=== PATIENT | female | born 1950 | race African-American/Black ===

== ENCOUNTER 2020-10-27 12:50 | Outpatient (REF) | payer MEDICARE, OTHER, SELFPAY ==
--- NOTE | 2020-10-27 | US_ITS ---
EXAMINATION: US VENOUS ULTRASOUND WITH DOPPLER LOWER EXTREMITY, LEFT CLINICAL INFORMATION: Swelling COMPARISON: None TECHNIQUE: Ultrasound of the deep veins is performed from the hip to the calf with compression sonography and color and pulse Doppler assessment. Spectral analysis with color-flow imaging is performed. FINDINGS: There is normal venous compression and respiratory variation and augmented flow. The visualized common femoral vein, superficial femoral vein, profunda femoral vein, popliteal vein, and the trifurcation region shows no evidence of deep venous thrombosis. There is no significant popliteal fossa cyst. There are varicose veins seen in the calf. There is bilateral inguinal lymphadenopathy. US/US venous duplex LE LT IMPRESSION: No DVT demonstrated in the left lower extremity.
== END 2020-10-27 12:51 | disposition home or self-care (01) ==
LOC: HO.HMGCX 12:50
PROVIDERS: PCP Internal Medicine; Visit Provider Internal Medicine
DX: M79.89 Other specified soft tissue disorders (principal)
CPT/HCPCS: 93971

== ENCOUNTER 2020-10-31 14:22 | Outpatient (REF) | payer MEDICARE, OTHER, SELFPAY ==
--- NOTE | 2020-10-31 14:26 | MM_ITS ---
EXAMINATION: MM SCREENING DIGITAL BREAST TOMOSYNTHESIS, BILATERAL CLINICAL INFORMATION: Screening. Asymptomatic. The lifetime risk of breast cancer based on the Tyrer-Cuzick Model is 5%. COMPARISON: Mammography: 11/09/2018, 02/21/2017 TECHNIQUE: Digital breast tomosynthesis is performed in both the craniocaudal and mediolateral oblique views along with computer-aided detection (CAD). Synthesized 2D images are generated from the tomosynthesis. FINDINGS: There are scattered areas of fibroglandular density (ACR BI-RADS breast composition Category b). Parenchymal pattern is similar to prior studies. Small nodular asymmetry posterior 3:30 o'clock right breast is stable from prior exams. There is no developing density. No significant mass or architectural abnormality or abnormal calcifications. The axilla and skin contours are unremarkable. MM/MM tomosynthesis screening BI IMPRESSION: No significant changes from prior studies. ASSESSMENT: BI-RADS 2: Benign RECOMMENDATION: Routine annual mammography screening. This patient's information was entered into a reminder system with a target due date for their next mammogram.
== END 2020-10-31 14:23 | disposition home or self-care (01) ==
LOC: HO.MAMMO 14:22
PROVIDERS: PCP Internal Medicine; Visit Provider Internal Medicine
DX: Z12.31 Encounter for screening mammogram for malignant neoplasm of breast (principal)
CPT/HCPCS: 77063; 77067

== ENCOUNTER 2020-11-05 09:36 | Outpatient (REF) | payer MEDICARE, OTHER, SELFPAY ==
--- NOTE | 2020-11-05 | MM_ITS ---
EXAMINATION: BONE DENSITOMETRY CLINICAL INDICATION: Screening for osteoporosis. COMPARISON: Baseline BD dated 06/12/2012. TECHNIQUE: Using a [employer] DXA System (software version: 13.1) manufactured by depict, dual-energy x-ray absorptiometry was performed of the lumbar spine and left hip. The images are of good technical quality. Summary results are attached. FINDINGS: AP SPINE L1-L4: There is prominent levocurvature lumbar spine with multilevel degenerative changes which may cause overestimation of the lumbar bone mineral density. Current: BMD 1.462 g/cm2, Z-score 3.0, T-score 2.3, normal, 5.0% decrease from baseline (<5% change is not significant). Baseline: BMD 1.539 g/cm2. LEFT FEMUR, NECK: Current: BMD 1.004 g/cm2, Z-score 0.3, T-score -0.2, normal. Baseline: BMD 1.105 g/cm2. LEFT FEMUR, TOTAL: Current: BMD 1.051 g/cm2, Z-score 0.6, T-score 0.3, normal, 4.0% decrease from baseline (<5% change is not significant). Baseline: BMD 1.095 g/cm2. IDENTIFIED RISK FACTORS: Menopause, tobacco use (current smoker). HISTORY OF FRACTURE: None listed. MEDICATIONS: None listed. MM/XR DEXA axial skeleton IMPRESSION: 1. DIAGNOSIS: Normal bone density based on the lowest T-score value of -0.2 in the femoral neck applying World Health Organization criteria. 2. 10-YEAR FRACTURE RISK PREDICTION, FRAX: Major osteoporotic fracture (clinical spine, forearm, hip or shoulder) 3.2%. Hip fracture 0.4%. 3. Treatment Recommendations: NOF guidelines recommend consideration for treatment in postmenopausal women and men age 50 and older presenting with the following: -A hip or vertebral (clinical or morphometric) fracture. -T-score less than or equal to -2.5 at the femoral neck or spine after appropriate evaluation to exclude secondary causes. -Low bone mass at the hip or spine and a 10-year fracture probability by FRAX of greater than or equal to 3% for hip fracture or greater than or equal to 20% for major osteoporotic fracture based on the [place] adapted WHO algorithm. 4. Other Recommendations: All treatment decisions require clinical judgment and consideration of individual patient factors, including patient preferences, comorbidities, previous drug use, risk factors not captured in the FRAX model (e.g. frailty, falls, vitamin D deficiency, increased bone turnover, interval significant decline in bone density) and possible under or overestimation of fracture risk by FRAX. FUTURE SCAN RECOMMENDATION: People with diagnosed cases of osteoporosis or at high risk for fracture should have regular bone mineral density tests. For patients eligible for Medicare, routine testing is allowed once every 2 years. The testing frequency can be increased to one year for patients who have rapidly progressing disease, those who are receiving or discontinuing medical therapy to restore bone mass, or have additional risk factors.
== END 2020-11-05 09:37 | disposition home or self-care (01) ==
LOC: HO.MAMMO 09:36
PROVIDERS: PCP Internal Medicine; Visit Provider Internal Medicine
DX: Z13.820 Encounter for screening for osteoporosis (principal); Z78.0 Asymptomatic menopausal state; F17.200 Nicotine dependence, unspecified, uncomplicated
CPT/HCPCS: 77080

== ENCOUNTER → 2021-06-25 13:21 | Outpatient (BNVA) | payer MEDICARE, OTHER, SELFPAY | PROVIDERS: PCP Internal Medicine; Visit Provider Nurse Practitioner Family | DX: M53.3 Sacrococcygeal disorders, not elsewhere classified (principal); M79.18 Myalgia, other site | CPT/HCPCS: 99202 ==

== ENCOUNTER 2021-07-01 12:14 | Outpatient (REF) | payer MEDICARE, OTHER, SELFPAY ==
--- NOTE | ~2021-07-01 | XR_ITS ---
EXAMINATION: XR LUMBOSACRAL SPINE CLINICAL INFORMATION: Lower back pain. COMPARISON: None TECHNIQUE: Three views of the lumbosacral spine. FINDINGS: Levocurvature of the lumbar spine centered at the L3 vertebral body. The lumbar lordosis is maintained. Grade 1 anterolisthesis of L4 on L5 and grade 2 anterolisthesis of L5 on S1. No loss of vertebral body height. Multilevel loss of intervertebral disc height with anterior endplate osteophytes. Prominent lower lumbar spine facet arthropathy. No lytic or blastic osseous lesion. Atherosclerotic calcifications. XR/XR lumbar spine 2-3V IMPRESSION: Levocurvature of the lumbar spine centered at the L3 vertebral body. Grade 1 anterolisthesis of L4 on L5 and grade 2 anterolisthesis of L5 on S1. Multilevel degenerative disc disease with lower lumbar spine facet arthropathy.
== END 2021-07-01 12:15 | disposition home or self-care (01) ==
LOC: HO.XRAY 12:14
PROVIDERS: PCP Internal Medicine; Visit Provider Internal Medicine
DX: M54.5 Low back pain (principal)
CPT/HCPCS: 72100

== ENCOUNTER → 2021-07-20 09:09 | Outpatient (BNVA) | payer MEDICARE, OTHER, SELFPAY | PROVIDERS: PCP Internal Medicine; Visit Provider Surgery Vascular Surgery | DX: I83.12 Varicose veins of left lower extremity with inflammation (principal) | CPT/HCPCS: 99202 ==

== ENCOUNTER → 2021-07-28 13:24 | Outpatient (BNVA) | payer MEDICARE, OTHER, SELFPAY | PROVIDERS: PCP Internal Medicine; Visit Provider Nurse Practitioner Family | DX: M53.3 Sacrococcygeal disorders, not elsewhere classified (principal); M79.18 Myalgia, other site; M43.16 Spondylolisthesis, lumbar region | CPT/HCPCS: 99212 ==

== ENCOUNTER 2021-08-05 10:09 | Outpatient (REF) | payer MEDICARE, OTHER, SELFPAY ==
--- NOTE | ~2021-08-05 | US_ITS ---
EXAMINATION: BILATERAL LOWER EXTREMITY VENOUS ULTRASOUND (Reflux Exam) CLINICAL INDICATION: This a 71-year-old female with history of venous insufficiency and varicose veins. COMPARISON: None. TECHNIQUE: Color flow triplex imaging and compression Doppler was performed to evaluate both the deep and the superficial systems bilaterally. To evaluate the superficial system, the examination was performed in the upright position. Color-flow Doppler ultrasound and compression ultrasound were utilized. In addition, maneuvers were utilized to demonstrate reflux. FINDINGS: 1. DEEP VENOUS ULTRASOUND OF THE RIGHT LOWER EXTREMITY: Common Femoral Vein: Compressible but with a reflux time of 956 ms. Femoral vein: Compressible with a reflux time of 1928 ms. Popliteal Vein: There is deep vein thrombosis seen in the popliteal vein. But with the reflux time of 1284 ms. there is no previous study to compare to this area to see if this is chronic or acute. Deep Reflux: There is deep vein reflux from the common femoral vein down into the popliteal vein.. There is no evidence of a Canada's cyst. 2. SUPERFICIAL ULTRASOUND WITH DOPPLER OF RIGHT LOWER EXTREMITY GREAT SAPHENOUS VEIN: Saphenofemoral junction: 0.5 cm Mid thigh: 0.3 cm Above knee: 0.2 cm Below knee: 0.3 cm Mid calf: 0.2 cm Ankle: 0.3 cm GSV REFLUX: No evidence of reflux. There is only an isolated segment of reflux at the knee in the great saphenous vein. DUPLICATED GREAT SAPHENOUS VEIN: There is a medial duplicated great saphenous vein measuring 0.3 cm without evidence of reflux. SMALL SAPHENOUS VEIN: Upper: 0.2 cm Lower: 0.2 cm SSV REFLUX: No evidence of reflux. VEIN OF GIACOMINI: None Imaged. PERFORATORS: None Imaged VARICOSITIES: There are multiple varicosities seen that are less than 0.3 cm. 3. DEEP VENOUS ULTRASOUND OF THE LEFT LOWER EXTREMITY: Common Femoral Vein: Compressible, normal respiratory variation and augmented flow. Femoral vein: Compressible, normal color flow and augmentation. Popliteal Vein: There is reflux in the popliteal vein with reflux time of 2052 ms. Deep Reflux: There is no evidence of reflux in the deep system in the common femoral vein. However, there is reflux in the popliteal vein. There is no evidence of a Canada's cyst. 4. SUPERFICIAL ULTRASOUND WITH DOPPLER OF LEFT LOWER EXTREMITY GREAT SAPHENOUS VEIN: Saphenofemoral junction: 0.8 cm Mid thigh: 0.2 cm Above knee: 0.2 cm Below knee: Not seen Mid calf: Not seen Ankle: Not seen GSV REFLUX: No evidence of reflux. DUPLICATED GREAT SAPHENOUS VEIN: None SMALL SAPHENOUS VEIN: Upper: 0.3 cm Lower: 0.2 cm SSV REFLUX: There is no reflux at the junction. There is a short segment in the mid calf measuring 0.3 cm with the reflux time of 2448 ms per VEIN OF GIACOMINI: None Imaged. PERFORATORS: None Imaged VARICOSITIES: There are multiple varicosities seen that are less than 0.3 cm. US/US venous duplex LE BI IMPRESSION: 1. Of note is deep vein thrombosis in the right popliteal vein with reflux throughout the deep system.. 2. There is a patent right great saphenous vein without evidence of reflux at the junction. 3. There is a patent duplicated medial right great saphenous vein without evidence of reflux. 4. There is a patent right small saphenous vein without evidence of reflux. 5. There are right-sided varicose veins and all measure less than 0.3 cm. 6. There is a patent left great saphenous vein without evidence of reflux. 7. There is a patent left small saphenous vein with only reflux in the mid calf over an isolated segment. 8. There are multiple varicose veins that all measure less than 0.3 cm in the leg.
== END 2021-08-05 10:10 | disposition home or self-care (01) ==
LOC: HO.US 10:09
PROVIDERS: PCP Internal Medicine; Visit Provider Surgery Vascular Surgery
DX: I83.12 Varicose veins of left lower extremity with inflammation (principal)
CPT/HCPCS: 93970

== ENCOUNTER 2021-08-09 13:00 | Outpatient (REF) | payer MEDICARE, OTHER, SELFPAY ==
--- NOTE | ~2021-08-09 | MR_ITS ---
EXAMINATION: MR LUMBAR SPINE WITHOUT CONTRAST CLINICAL INFORMATION: 71-year-old with chronic low back pain and bilateral leg pain and weakness. Spondylolisthesis, lumbar region. COMPARISON: None TECHNIQUE: MRI of the lumbar spine was obtained using routine sequences without contrast. FINDINGS: Coronal Alignment: Rauybwos-dh-yjfjdr lumbar rotatory levoscoliosis, convex to the left at L2-L3. There is dkwmt-rm-nrwc lateral listhesis at L4-L5. There is jkoh-ww-ivlyt lateral listhesis at T12-L1. Sagittal Alignment: There is 5 mm of grade 1 spondylolisthesis at L5-S1, likely degenerative. There is 4 mm of grade 1 degenerative spondylolisthesis at L4-L5, and there is trace rotatory anterolisthesis at L3-L4. There is trace retrolisthesis at T12-L1. Lumbosacral Junction: Normal. Vertebral Bodies: Vertebral body heights are well maintained. No definite compression fractures are identified. Disc Spaces and Endplates: Dpbzhkce-vr-vioeok disc space height loss asymmetric to the left at L5-S1 with intradiscal degenerative signal changes with subchondral degenerative changes along the inferior endplate of L5 and mild spondylosis. Mild disc space height loss and disc desiccation at L4-L5 with Schmorl's nodes and mild spondylosis. Oyvq-iw-cextdkso disc space height loss asymmetric to the right at L3-L4 with disc desiccation and moderate spondylosis. Severe disc space height loss, disc desiccation, Schmorl's nodes, and spondylosis at T12-L1, T11-T12, T10-T11, T9-T10, and T8-T9. Probable intradiscal vacuum disc phenomenon at L4-L5 and L5-S1. Bone Marrow: Type I degenerative marrow signal changes along the endplates at L5-S1 and L2-L3. Conus Medullaris: Terminates at L1-L2. Morphology and signal is normal. Intradural Nerve Roots: Crowding of the intradural nerve roots at L4-L5 and, to a lesser degree, at L3-L4 consistent with multilevel spinal stenosis. L5-S1: Unroofing of the posterior disc margin consistent with grade 1 spondylolisthesis with bilateral paravertebral/posterolateral disc-osteophyte complex and severe bilateral facet arthropathy. There is mild left subarticular recess stenosis with tnyhscskfi-qc-wbyp central spinal canal stenosis with possible encroachment on the traversing left S1 nerve root. There is severe left-sided and nrsg-wh-ruqsznpu right-sided craniocaudal neural foraminal stenosis with left L5 nerve root impingement. L4-L5: Unroofing of the posterior disc margin noted with superimposed disc bulging and a superimposed central to right subarticular extruded disc herniation with mild cephalad migration. Ligamentum flavum thickening and severe bilateral facet arthropathy is noted with severe central spinal canal stenosis and crowding of the intradural nerve roots, with moderate bilateral lateral recess stenosis. There is severe right subarticular recess stenosis, as well, and there is iuku-bt-fhphxdot left-sided and dzifvkqw-vm-lbuebn right-sided neural foraminal stenosis with right L4 nerve root impingement. L3-L4: Mild disc bulging is noted with a superimposed right central to subarticular and foraminal disc herniation, with flattening of the dural sac asymmetric to the right. There is marked ligamentum flavum thickening, and there is severe right-sided and moderate left-sided facet arthropathy. There is moderate central spinal canal stenosis with crowding of the intradural nerve roots and mild narrowing of the right subarticular recess. There is severe right-sided neural foraminal stenosis with right L3 nerve root impingement. L2-L3: Small left paramedian to foraminal disc protrusion. Mild left-sided and uwfwrnfj-jo-dpnxqy right-sided facet hypertrophic degenerative change with mild right-sided neural foraminal narrowing without canal stenosis. L1-L2: Slight retrolisthesis is noted with a small right paramedian disc protrusion and moderate bilateral facet arthrosis with mtoe-pk-pdsqljvu right-sided neural foraminal stenosis. No spinal canal stenosis. Posterolateral disc-osteophyte complex asymmetric to the right at T12-L1 which is not imaged in the axial plane with moderate bilateral facet arthropathy at this level, with mild left-sided and moderate right-sided neural foraminal stenosis without spinal canal stenosis. Small left paramedian disc protrusion at T11-T12 with moderate left-sided facet arthropathy and moderate left-sided neural foraminal stenosis. There is facet arthropathy, left more than right, at the remaining visualized thoracic levels. Paraspinal/Retroperitoneal: The paravertebral soft tissues are remarkable for mild generalized diffuse posterior paraspinal muscle volume loss. MR/MR lumbar spine wo con IMPRESSION: 1. Tqqgblyk-bb-dibzgh rotatory lumbar levoscoliosis, with multilevel lateral subluxations, with grade 1 spondylolisthesis at L4-L5 and L5-S1 and trace retrolisthesis at L1-L2 and T12-L1. 2. Multilevel DDD and spondylosis, as detailed above, with extensive multilevel bilateral facet arthropathy and ligamentum flavum thickening. Multilevel disc bulging and disc herniations are described above, with severe spinal canal stenosis at L4-L5 and moderate spinal canal stenosis at L3-4 with mild spinal canal stenosis at L5-S1. 3. Multilevel bilateral neural foraminal stenosis, most severe on the left at L5-S1 and on the right at L3-L4, bilaterally at L4-L5, right more than left, as detailed above. 4. Multilevel lower thoracic degenerative changes, as discussed above.
== END 2021-08-09 13:01 | disposition home or self-care (01) ==
LOC: HO.MRI 13:00
PROVIDERS: Visit Provider Nurse Practitioner Family
DX: M43.16 Spondylolisthesis, lumbar region (principal)
CPT/HCPCS: 72148

== ENCOUNTER → 2021-08-12 13:43 | Outpatient (BNVA) | payer MEDICARE, OTHER, SELFPAY | PROVIDERS: PCP Internal Medicine; Visit Provider Surgery Vascular Surgery | DX: I82.409 Acute embolism and thrombosis of unspecified deep veins of unspecified lower extremity (principal) | CPT/HCPCS: 99212 ==

== ENCOUNTER → 2021-11-18 10:36 | Outpatient (BNVA) | payer MEDICARE, OTHER, SELFPAY | PROVIDERS: PCP Internal Medicine; Visit Provider Surgery Vascular Surgery | DX: I83.12 Varicose veins of left lower extremity with inflammation (principal) | CPT/HCPCS: 99212 ==

== ENCOUNTER 2021-12-09 09:45 | Outpatient (REF) | payer MEDICARE, OTHER, SELFPAY ==
--- NOTE | ~2021-12-09 | MM_ITS ---
EXAMINATION: MM SCREENING DIGITAL BREAST TOMOSYNTHESIS, BILATERAL CLINICAL INFORMATION: Screening. Asymptomatic. The lifetime risk of breast cancer based on the Tyrer-Cuzick Model is 5.2%. COMPARISON: Mammography: October 31, 2020 and studies dating back to November 22, 2013 TECHNIQUE: Digital breast tomosynthesis is performed in both the craniocaudal and mediolateral oblique views along with computer-aided detection (CAD). Synthesized 2D images are generated from the tomosynthesis. FINDINGS: There are scattered areas of fibroglandular density (ACR BI-RADS breast composition Category b). There are no significant masses, abnormal calcifications, or other abnormalities. MM/MM tomosynthesis screening BI IMPRESSION: There are no significant changes from prior study. ASSESSMENT: BI-RADS 1: Negative RECOMMENDATION: Routine annual mammography screening. This patient's information was entered into a reminder system with a target due date for their next mammogram.
== END 2021-12-09 09:46 | disposition home or self-care (01) ==
LOC: HO.MAMMO 09:45
PROVIDERS: Visit Provider Internal Medicine
DX: Z12.31 Encounter for screening mammogram for malignant neoplasm of breast (principal)
CPT/HCPCS: 77063; 77067

== ENCOUNTER 2022-02-14 10:21 | Outpatient (REF) | payer MEDICARE, OTHER, SELFPAY ==
--- NOTE | ~2022-02-14 | US_ITS ---
EXAMINATION: BILATERAL LOWER EXTREMITY VENOUS ULTRASOUND (Reflux Exam) CLINICAL INDICATION: Lower extremity varicose veins. COMPARISON: Bilateral lower extremity reflux ultrasound on 08/05/2021. TECHNIQUE: Color flow triplex imaging and compression Doppler was performed to evaluate both the deep and the superficial systems bilaterally. To evaluate the superficial system, the examination was performed in the upright position. Color-flow Doppler ultrasound and compression ultrasound were utilized. In addition, maneuvers were utilized to demonstrate reflux. FINDINGS: SUPERFICIAL ULTRASOUND WITH DOPPLER OF RIGHT LOWER EXTREMITY GREAT SAPHENOUS VEIN: Saphenofemoral junction: 0.6 cm Max diameter: 0.6 cm Min diameter: 0.2 cm Reflux: There is segmental reflux within the right great saphenous vein at the knee measuring greater than 0.6 seconds. DUPLICATED MEDIAL GREAT SAPHENOUS VEIN: Max Diameter: 0.3 cm at the junction. Reflux: None. DUPLICATED LATERAL GREAT SAPHENOUS VEIN: Diameter: None Imaged Reflux: NA SMALL SAPHENOUS VEIN: Proximal Calf: 0.3 cm Distal Calf: 0.2 cm Reflux: No evidence of reflux. VEIN OF GIACOMINI: None Imaged. PERFORATORS: Location: None Imaged Reflux: NA VARICOSITIES: Location: Multiple thin-walled varicosities present throughout the right lower extremity measuring less than 3 mm. Reflux: NA DEEP VENOUS ULTRASOUND OF THE RIGHT LOWER EXTREMITY: Common Femoral Vein: Compressible, normal respiratory variation and augmented flow. Femoral vein: Compressible, normal color flow and augmentation. Popliteal Vein: There is partially occlusive, echogenic thrombus seen within the popliteal vein consistent with chronic DVT. This is unchanged in extent when compared to 2020. Deep Reflux: There is greater than 2.1 seconds of reflux within the mid femoral vein and 1.9 seconds of reflux within the popliteal vein. Canada's Cyst: There is no evidence of a Canada's cyst. SUPERFICIAL ULTRASOUND WITH DOPPLER OF LEFT LOWER EXTREMITY GREAT SAPHENOUS VEIN: Saphenofemoral junction: 0.8 cm Max diameter: 0.8 cm Min diameter: 0.3 cm Reflux: There is segmental reflux within the great saphenous vein at the mid calf up to 2.3 seconds. Additional: The great saphenous vein is not visualized from the mid thigh to below the knee. DUPLICATED MEDIAL GREAT SAPHENOUS VEIN: Max Diameter: 0.4 Reflux: None DUPLICATED LATERAL GREAT SAPHENOUS VEIN: Diameter: None Imaged Reflux: NA SMALL SAPHENOUS VEIN: Proximal Calf: 0.2 cm Distal Calf: 0.3 cm Reflux: No evidence of reflux. VEIN OF GIACOMINI: None Imaged. PERFORATORS: Location: Posterior thigh distally, and mid calf measuring between 3 and 4 mm. Reflux: There is greater than 2 seconds of reflux within the mid calf perforators. VARICOSITIES: Location: Posterior thigh, proximal calf and mid calf measuring between 3 and 4 mm. Reflux: All imaged varicosities demonstrate reflux greater than 0.5 seconds. DEEP VENOUS ULTRASOUND OF THE LEFT LOWER EXTREMITY: Common Femoral Vein: Compressible, normal respiratory variation and augmented flow. Femoral vein: Compressible, normal color flow and augmentation. Popliteal Vein: Compressible, normal augmentation. Deep Reflux: There is no evidence of reflux in the deep system in either the common femoral vein or the popliteal vein. Canada's Cyst: There is no evidence of a Canada's cyst. US/US venous duplex LE BI IMPRESSION: Segmental right great saphenous venous insufficiency at the knee. Segmental left great saphenous venous insufficiency at the mid calf. The left great saphenous vein is not visualized from the mid thigh to below the knee. Multiple left lower extremity refluxing varicosities. Chronic right popliteal vein DVT, not significantly changed from 2020. Right deep venous insufficiency involving the mid femoral vein and popliteal vein.
== END 2022-02-14 10:22 | disposition home or self-care (01) ==
LOC: HO.US 10:21
PROVIDERS: Visit Provider Surgery Vascular Surgery
DX: I83.12 Varicose veins of left lower extremity with inflammation (principal)
CPT/HCPCS: 93970

== ENCOUNTER → 2022-02-22 10:52 | Outpatient (BNVA) | payer MEDICARE, OTHER, SELFPAY | PROVIDERS: PCP Internal Medicine; Visit Provider Surgery Vascular Surgery | DX: I83.12 Varicose veins of left lower extremity with inflammation (principal) | CPT/HCPCS: 99212 ==

== ENCOUNTER 2022-12-13 08:34 | Outpatient (REF) | payer MEDICARE, SELFPAY ==
--- NOTE | ~2022-12-13 | MM_ITS ---
EXAMINATION: MM SCREENING DIGITAL BREAST TOMOSYNTHESIS, BILATERAL CLINICAL INFORMATION: Screening. Asymptomatic. The lifetime risk of breast cancer based on the Tyrer-Cuzick Model is 4.4%. COMPARISON: Mammography: December 09, 2021 and studies dating back to January 14, 2016 TECHNIQUE: Digital breast tomosynthesis is performed in both the craniocaudal and mediolateral oblique views along with computer-aided detection (CAD). Synthesized 2D images are generated from the tomosynthesis. FINDINGS: There are scattered areas of fibroglandular density (ACR BI-RADS breast composition Category b). There are no significant masses, abnormal calcifications, or other abnormalities. MM/MM tomosynthesis screening BI IMPRESSION: No significant changes from prior exam. ASSESSMENT: BI-RADS 1: Negative RECOMMENDATION: Routine annual mammography screening. This patient's information was entered into a reminder system with a target due date for their next mammogram.
== END 2022-12-13 08:35 | disposition home or self-care (01) ==
LOC: HO.MAMMO 08:34
PROVIDERS: PCP Registered Nurse; Visit Provider Internal Medicine
DX: Z12.31 Encounter for screening mammogram for malignant neoplasm of breast (principal)
CPT/HCPCS: 77063; 77067

== ENCOUNTER → 2022-12-15 09:24 | Outpatient (BNVA) | payer MEDICARE, SELFPAY | PROVIDERS: Visit Provider Surgery | DX: Z12.11 Encounter for screening for malignant neoplasm of colon (principal) | CPT/HCPCS: 99202 ==

== ENCOUNTER 2023-02-17 07:13 | Day surgery (SDC) | payer MEDICARE, SELFPAY ==
[2023-02-14 10:13] VITALS: BMI 22.1
--- NOTE | 2023-02-16 13:38 | HO.ANESPROP2 ---
HPI - Anesthesia Eval Consult details Narrative: 72yo F for Colonoscopy Suboxone daily PMFSH Active Problems Active Problems: All Active Problems (Updated 12/15/22 @ 09:53 by Puma Zimmer MD) Sacroiliac joint pain (Acute) Myofascial pain (Acute) Varicose veins of left lower extremity with inflammation (Acute) Anterolisthesis of lumbar spine (Acute) Colon cancer screening (Acute) DVT (deep venous thrombosis) (Acute) Past Medical History Medical History Allergic rhinitis Chronic right hip pain Colon cancer screening Diabetes DVT (deep venous thrombosis) Hepatitis C HTN (hypertension) Hx of opioid abuse Lumbar spondylosis Mild nonproliferative diabetic retinopathy Nondependent tobacco use disorder Trochanteric bursitis of right hip Unspecified pruritic disorder Family History Family History Mother Enlarged heart Father No problems noted. Surgical History Surgical History H/O colonoscopy Social History Social History Patient Tobacco Use Status: Current everyday Tobacco user Tobacco use type: Cigarette Cigarettes Per Day: 5 Meds Allergies Allergy/AdvReac Type Severity Reaction Status Date / Time DEVORAH Inhibitors Allergy Severe congestion Verified 02/14/23 09:52 lisinopril [LISINOPRIL] Allergy Severe SEVERE Verified 12/15/22 09:34 CONGESTION tetracycline [TETRACYCLINE] Allergy Intermediate LETHARGIC, Verified 12/15/22 09:34 drowsiness pollen Allergy Intermediate runny nose Uncoded 12/15/22 09:34 Home Medications Medication Instructions Recorded Confirmed Last Taken Type aspirin 81 mg tablet,delayed 81 mg PO DAILY 06/25/21 02/14/23 Unknown History release cetirizine 10 mg tablet 10 mg PO DAILY 06/25/21 02/14/23 Unknown History cholecalciferol (vitamin D3) 50 50 mcg PO DAILY 06/25/21 02/14/23 Unknown History mcg (2,000 unit) tablet escitalopram oxalate 10 mg tablet 10 mg PO DAILY 06/25/21 02/14/23 Unknown History fluticasone propionate 50 1 spray intranasal DAILY 06/25/21 02/14/23 Unknown History mcg/actuation nasal spray,suspension furosemide 20 mg tablet 20 mg PO DAILY PRN swelling 06/25/21 02/14/23 Unknown History hydrochlorothiazide 25 mg tablet 25 mg PO DAILY 06/25/21 02/14/23 Unknown History losartan 100 mg tablet 100 mg PO DAILY 06/25/21 02/14/23 Unknown History insulin glargine 100 unit/mL 5 unit subcut BEDTIME 07/20/21 02/14/23 Unknown History subcutaneous solution (Lantus U-100 Insulin) insulin syringe-needle U-100 1 mL #10 ea 07/20/21 12/15/22 Unknown History 31 gauge x 5/16 metformin 500 mg tablet,extended 1,000 mg PO BID 07/20/21 02/14/23 Unknown History release 24 hr atorvastatin 20 mg tablet 20 mg PO DAILY 02/22/22 02/14/23 Unknown History buprenorphine 8 mg-naloxone 2 mg 10 mg sublingual DAILY 02/17/23 02/17/23 Unknown History sublingual film Exam Exam Date and Time: February 16, 2023 1338 Height,Weight and Vital Signs: Height 5 ft 7 in Weight 63.957 kg Assessment and Plan Assessment Anesthesia Assessment: Chart Reviewed
--- NOTE | 2023-02-17 07:24 | HO.ANESPROP2 ---
[facility] Active Problems Active Problems: All Active Problems (Updated 12/15/22 @ 09:53 by Puma Zimmer MD) Sacroiliac joint pain (Acute) Myofascial pain (Acute) Varicose veins of left lower extremity with inflammation (Acute) Anterolisthesis of lumbar spine (Acute) Colon cancer screening (Acute) DVT (deep venous thrombosis) (Acute) Past Medical History Medical History Allergic rhinitis Chronic right hip pain Colon cancer screening Diabetes DVT (deep venous thrombosis) Hepatitis C HTN (hypertension) Hx of opioid abuse Lumbar spondylosis Mild nonproliferative diabetic retinopathy Nondependent tobacco use disorder Trochanteric bursitis of right hip Unspecified pruritic disorder Family History Family History Mother Enlarged heart Father No problems noted. Surgical History Surgical History H/O colonoscopy Social History Social History Patient Tobacco Use Status: Current everyday Tobacco user Tobacco use type: Cigarette Cigarettes Per Day: 5 Meds Allergies Allergy/AdvReac Type Severity Reaction Status Date / Time DEVORAH Inhibitors Allergy Severe congestion Verified 02/14/23 09:52 lisinopril [LISINOPRIL] Allergy Severe SEVERE Verified 12/15/22 09:34 CONGESTION tetracycline [TETRACYCLINE] Allergy Intermediate LETHARGIC, Verified 12/15/22 09:34 drowsiness pollen Allergy Intermediate runny nose Uncoded 12/15/22 09:34 Active Medications: Current Medications Albuterol Sulfate (Albuterol Sulfate (0.083%) 2.5 Mg/3 Ml Vial.Neb) 2.5 mg INHALE ONCE PRN PRN Reason: Shortness of Breath/Wheezing Lactated Ringer's (Lr) 1,000 mls @ 100 mls/hr IVCONT .Q10H [facility] Home Medications Medication Instructions Recorded Confirmed Last Taken Type aspirin 81 mg tablet,delayed 81 mg PO DAILY 06/25/21 02/14/23 Unknown History release buprenorphine 4 mg-naloxone 1 mg film sublingual 06/25/21 12/15/22 Unknown History sublingual film cetirizine 10 mg tablet 10 mg PO DAILY 06/25/21 02/14/23 Unknown History cholecalciferol (vitamin D3) 50 50 mcg PO DAILY 06/25/21 02/14/23 Unknown History mcg (2,000 unit) tablet escitalopram oxalate 10 mg tablet 10 mg PO DAILY 06/25/21 02/14/23 Unknown History fluticasone propionate 50 1 spray intranasal DAILY 06/25/21 02/14/23 Unknown History mcg/actuation nasal spray,suspension furosemide 20 mg tablet 20 mg PO DAILY PRN swelling 06/25/21 02/14/23 Unknown History hydrochlorothiazide 25 mg tablet 25 mg PO DAILY 06/25/21 02/14/23 Unknown History losartan 100 mg tablet 100 mg PO DAILY 06/25/21 02/14/23 Unknown History insulin glargine 100 unit/mL 5 unit subcut BEDTIME 07/20/21 02/14/23 Unknown History subcutaneous solution (Lantus U-100 Insulin) insulin syringe-needle U-100 1 mL #10 ea 07/20/21 12/15/22 Unknown History 31 gauge x 5/16 metformin 500 mg tablet,extended 1,000 mg PO BID 07/20/21 02/14/23 Unknown History release 24 hr atorvastatin 20 mg tablet 20 mg PO DAILY 02/22/22 02/14/23 Unknown History Exam Exam Date and Time: February 17, 2023723 Height,Weight and Vital Signs: Height 5 ft 7 in Weight 63.957 kg Airway Mallampati Class: II TM Dist: >3cm Heart: RRR Lungs: CTA Assessment and Plan Final Anesthetic Review ASA Class: III Final Preanesthetic Review: Meds/Allgs Chart Reviewed, Consent Obtained/Reviewed and Anes Risks/Benef Reviewed Patient Risk: Low Procedure Risk: Low Anesthetic Plan Anesthetic Plan: MAC: Disposition: Standard PACU
[2023-02-17 07:32] VITALS: BMI 20.4
--- NOTE | 2023-02-17 07:52 | P.CONAN_ITS ---
[facility] Active Problems Active Problems: All Active Problems Sacroiliac joint pain (Acute) Myofascial pain (Acute) Varicose veins of left lower extremity with inflammation (Acute) Anterolisthesis of lumbar spine (Acute) Colon cancer screening (Acute) DVT (deep venous thrombosis) (Acute) Past Medical History Medical History Allergic rhinitis Chronic right hip pain Colon cancer screening Diabetes DVT (deep venous thrombosis) Hepatitis C HTN (hypertension) Hx of opioid abuse Lumbar spondylosis Mild nonproliferative diabetic retinopathy Nondependent tobacco use disorder Trochanteric bursitis of right hip Unspecified pruritic disorder Family History Family History Mother Enlarged heart Father No problems noted. Surgical History Surgical History H/O colonoscopy Social History Social History Patient Tobacco Use Status: Current everyday Tobacco user Tobacco use type: Cigarette Cigarettes Per Day: 5 Meds Allergies Allergy/AdvReac Type Severity Reaction Status Date / Time DEVORAH Inhibitors Allergy Severe congestion Verified 02/14/23 09:52 lisinopril [LISINOPRIL] Allergy Severe SEVERE Verified 12/15/22 09:34 CONGESTION tetracycline [TETRACYCLINE] Allergy Intermediate LETHARGIC, Verified 12/15/22 09:34 drowsiness pollen Allergy Intermediate runny nose Uncoded 12/15/22 09:34 Active Medications: Current Medications Albuterol Sulfate (Albuterol Sulfate (0.083%) 2.5 Mg/3 Ml Vial.Neb) 2.5 mg INHALE ONCE PRN PRN Reason: Shortness of Breath/Wheezing Lactated Ringer's (Lr) 1,000 mls @ 100 mls/hr IVCONT .Q10H [facility] Home Medications Medication Instructions Recorded Confirmed Last Taken Type aspirin 81 mg tablet,delayed 81 mg PO DAILY 06/25/21 02/14/23 Unknown History release buprenorphine 4 mg-naloxone 1 mg film sublingual 06/25/21 12/15/22 Unknown History sublingual film cetirizine 10 mg tablet 10 mg PO DAILY 06/25/21 02/14/23 Unknown History cholecalciferol (vitamin D3) 50 50 mcg PO DAILY 06/25/21 02/14/23 Unknown History mcg (2,000 unit) tablet escitalopram oxalate 10 mg tablet 10 mg PO DAILY 06/25/21 02/14/23 Unknown History fluticasone propionate 50 1 spray intranasal DAILY 06/25/21 02/14/23 Unknown History mcg/actuation nasal spray,suspension furosemide 20 mg tablet 20 mg PO DAILY PRN swelling 06/25/21 02/14/23 Unknown History hydrochlorothiazide 25 mg tablet 25 mg PO DAILY 06/25/21 02/14/23 Unknown History losartan 100 mg tablet 100 mg PO DAILY 06/25/21 02/14/23 Unknown History insulin glargine 100 unit/mL 5 unit subcut BEDTIME 07/20/21 02/14/23 Unknown History subcutaneous solution (Lantus U-100 Insulin) insulin syringe-needle U-100 1 mL #10 ea 07/20/21 12/15/22 Unknown History 31 gauge x 5/16 metformin 500 mg tablet,extended 1,000 mg PO BID 07/20/21 02/14/23 Unknown History release 24 hr atorvastatin 20 mg tablet 20 mg PO DAILY 02/22/22 02/14/23 Unknown History Exam Exam Date and Time: February 17, 2023 075 Height,Weight and Vital Signs: Height 5 ft 7 in Weight 58.967 kg
[2023-02-17 07:58] LABS: Glucose, Whole Blood 169 mg/dL (60-115)
[2023-02-17 08:12] VITALS: BP 124/66; PULSE 72; RESP 18; TEMP 36.7; O2SAT 97
[2023-02-17 08:14] VITALS: BMI 20.4
--- NOTE | 2023-02-17 09:22 | P.OP_ITS ---
Operative Note Operative Note Date of Service: 02/17/23 Narrative: Preop diagnosis: Colon cancer screening Postop diagnosis: 1. Heavy diverticulosis in the sigmoid colon 2. large internal external hemorrhoids Procedure: Colonoscopy Surgeon: Puma Zimmer MD The patient is a 72-year-old female here for screening colonoscopy. She understood the technique of the procedure as well as the risks, benefits, and alternatives. The patient was brought to the operating room and placed in left lateral decubitus position under monitored anesthesia care. A surgical time-out was done. A full digital rectal exam was done and this did not reveal any signif icant anal lesionsExcept for large hemorrhoids. The tip of the Olympus colonoscope was gently introduced through the anal orifice advanced with insufflation all the way to the cecum. There was note of heavy diverticulosis in the sigmoid colon, in this area was also very tortuous. We had difficulty traversing this segment it took us an extended period of time as we had to proceed very slowly because of the heavy diverticulosis as well as the severe tortuosity. Eventually, as able to intubate the cecum. The cecum was identified by visualization of the ileocecal valve as well as the appendiceal orifice. The cecal mucosa was unremarkable. The scope was gradually withdrawn with careful examination of the entire colonic mucosa being done with scope withdrawal. The patient had adequate bowel prep so it was unlikely that any lesion may have been missed. The rectum was reached and there were no lesions seen. The anal canal was unremarkable. Again , there was note of internal hemorrhoids And external hemorrhoids which for were bulky. The scope was then withdrawn completely with desufflation. The patient tolerated the procedure well. There were no immediate complications. This may be her last colonoscopy for screening. Her next colonoscopy will be in the next 10 years if she is in good health at that time.
[2023-02-17 09:28] VITALS: BP 162/79; PULSE 77; RESP 16; TEMP 36.2; O2SAT 100
[2023-02-17 09:44] VITALS: BP 157/85; PULSE 80; RESP 14; TEMP 36.3; O2SAT 99
--- NOTE | 2023-02-17 10:01 | HO.POSTANES ---
Post Anesthesia Evaluation Post Anesthesia Evaluation Vital Signs: Vital Signs Temp Pulse Resp BP Pulse Ox O2 Del Method 02/17/23 09:44 97.3 F 80 14 157/85 H 99 Room Air 02/17/23 09:28 97.2 F 77 16 162/79 H 100 Room Air 02/17/23 08:12 98.1 F 72 18 124/66 97 Room Air Anesthesia: Monitored Mental Status: Awake Pain Control: Satisfactory Nausea/Vomiting: None Hydration: Adequate Anesthesia-Related Issues: No Anes. Related Issues
--- NOTE | 2023-02-17 16:51 | PC.NURSE ---
patient call made at this time and patient responded that she is recovering well and home safely.
== END 2023-02-17 10:15 | disposition home or self-care (01) ==
PROVIDERS: PCP Registered Nurse; Visit Provider Surgery
PROC: 0DJD8ZZ Inspection of Lower Intestinal Tract, Via Natural or Artificial Opening Endoscopic (ICD-10-PCS; CPT 45378; principal; 2023-02-17 08:30)
DX: Z12.11 Encounter for screening for malignant neoplasm of colon (principal); K57.30 Diverticulosis of large intestine without perforation or abscess without bleeding; K64.4 Residual hemorrhoidal skin tags; K56.2 Volvulus; E11.9 Type 2 diabetes mellitus without complications; I10 Essential (primary) hypertension; Z86.718 Personal history of other venous thrombosis and embolism; Z79.01 Long term (current) use of anticoagulants; Z79.82 Long term (current) use of aspirin; Z79.899 Other long term (current) drug therapy; Z88.8 Allergy status to other drugs, medicaments and biological substances
CPT/HCPCS: G0121; 82947

== ENCOUNTER → 2023-02-23 10:59 | Outpatient (BNVA) | payer MEDICARE, SELFPAY | PROVIDERS: PCP Registered Nurse; Visit Provider Surgery | DX: Z12.11 Encounter for screening for malignant neoplasm of colon (principal); K57.90 Diverticulosis of intestine, part unspecified, without perforation or abscess without bleeding | CPT/HCPCS: 99212 ==

== ENCOUNTER 2023-07-18 08:49 | Outpatient (REF) | payer MEDICARE, SELFPAY ==
--- NOTE | ~2023-07-18 | XR_ITS ---
EXAMINATION: XR LUMBOSACRAL SPINE CLINICAL INFORMATION: Low back pain COMPARISON: 07/01/2021 TECHNIQUE: Three views of the lumbosacral spine. FINDINGS: There is stable levoscoliosis of lumbar spine with rotation of vertebral bodies to the left. There is grade 1 listhesis of L4 over L5 and grade 2 anterior listhesis of L5 over S1. And narrowing cough L3-L4, L4-L5 and L5-S1. XR/XR lumbar spine 2-3V IMPRESSION: No interval change. Multilevel degenerative changes with grade 1 listhesis of L4 over L5 and grade 2 anterolisthesis of L5 over S1.
== END 2023-07-18 08:50 | disposition home or self-care (01) ==
LOC: HO.HHCX 08:49
PROVIDERS: Visit Provider Nurse Practitioner Family
DX: R22.2 Localized swelling, mass and lump, trunk (principal); M54.50 Low back pain, unspecified
CPT/HCPCS: 72100

== ENCOUNTER 2023-07-18 09:26 | Outpatient (REF) | payer MEDICARE, SELFPAY ==
[2023-07-18 11:51] LABS: Estimated Average Glucose 160 mg/dL; Hemoglobin A1c % 7.2 % (<6.0)
[2023-07-18 12:18] LABS: Alanine Aminotransferase 12 U/L (0-31); Albumin Level 4.2 g/dL (3.5-5.0); Alkaline Phosphatase 65 U/L (39-117); Anion Gap 13 (12-20); Aspartate Amino Transferase 15 U/L (5-31); Bilirubin Total 0.5 mg/dL (0.0-1.0); Blood Urea Nitrogen 10 mg/dL (9-16); Carbon Dioxide 29 mmol/L (22-29); Chloride 101 mmol/L (96-108); Cholesterol 173 mg/dL (<200); Estimated Glomerular Filt Rate > 60; Glucose Random 111 mg/dL (60-115); HDL Cholesterol 61 mg/dL (>40); LDL Cholesterol Calculated 98 mg/dL (<100); Sodium 139 mmol/L (135-145); Total Protein 7.3 g/dL (6.5-8.0); Triglycerides 73 mg/dL (<150)
[2023-07-18 12:36] LABS: HBS Num1 0.51 mIU/mL (0-7.99); ~Hepatitis B Surface Antibody NONREACTIVE (Nonreactive)
[2023-07-18 13:09] LABS: Vitamin B12 568 pg/mL (200-900)
== END 2023-07-18 09:27 | disposition home or self-care (01) ==
LOC: HO.HHCL 09:26
PROVIDERS: Visit Provider Nurse Practitioner Family
DX: E11.69 Type 2 diabetes mellitus with other specified complication (principal); Z71.89 Other specified counseling
CPT/HCPCS: 36415; 80053; 80061; 82607; 83036; 86706

== ENCOUNTER 2023-12-14 10:59 | Outpatient (AMB) | payer MEDICARE, SELFPAY ==
[2023-12-14 11:07] VITALS: BMI 20.7
--- NOTE | 2023-12-14 11:07 | A.OFFVIS_ITS ---
Intake Vital Signs 12/14/23 11:07 Height 5 ft 7 in Weight 132 lb BMI 20.7 Intake Visit Reasons: Follow Up VV, micro scheduled in 22 Intake Note: follow up VV Left LE, was due for a Left LE Micro in February of 2022. She states that Bilateral LE VV are painful. Since last visit she has started new diabetes medication and has lost weight. Pt states VV are itchy, painful, buldging and discolored Accompanied by: Self / Same As Patient Allergies DEVORAH Inhibitors Allergy (Severe, Verified 12/14/23 11:13) congestion lisinopril [LISINOPRIL] Allergy (Severe, Verified 12/14/23 11:13) SEVERE CONGESTION tetracycline [TETRACYCLINE] Allergy (Intermediate, Verified 12/14/23 11:13) LETHARGIC, drowsiness pollen Allergy (Intermediate, Uncoded 12/14/23 11:13) runny nose HPI Follow Up VV, micro scheduled in 22 HPI Details Very complex 73-year-old female presents for follow-up regarding lower extremity varicose veins with inflammation. She has a prior history of a right popliteal DVT that is being maintained on Eliquis. She would persistent swelling and pain. She was actually scheduled for a left leg microphlebectomy back in 2021. Unfortunately she had missed the appointment and did not follow- up at that point. She continues to have pain and discomfort. She has been using compression since that time with no significant improvement. She now pr esents for follow-up. [facility] Medical History Diverticulosis Colon cancer screening DVT (deep venous thrombosis) Hx of opioid abuse Trochanteric bursitis of right hip Lumbar spondylosis Chronic right hip pain Nondependent tobacco use disorder Unspecified pruritic disorder Mild nonproliferative diabetic retinopathy Allergic rhinitis HTN (hypertension) Hepatitis C Diabetes Surgical History H/O colonoscopy Family History Mother Enlarged heart Father No problems noted. Social History Patient Tobacco Use Status: Current everyday Tobacco user Tobacco use type: Cigarette Cigarettes Per Day: 5 Review of Systems Const Reports as per HPI ENT Reports no additional complaints Card Denies chest pain, Denies chest pain at rest and Denies chest pain with activity Resp Denies chest congestion and Denies cough GI Reports no additional complaints Musc Details: pain over varicosities, aching of lower extremities, swelling, cramping, heaviness and tiredness, itching Denies abnormal gait Skin/Breast Reports pruritus and Denies wounds Neuro Reports no additional complaints and Denies abnormal gait Psych Denies no additional complaints Physical Exam Vital Signs: BMI result Body Mass Index 20.7 Const General: cooperative, healthy appearing and comfortable Orientation/consciousness: oriented to person, oriented to place and oriented to time Neck Carotids: no bruits Chest Chest palpation & inspection: normal inspection of the chest and normal palpation of entire chest wall Resp Effort & Inspection: normal respiratory effort and able to speak in complete sentences Cardio Rate: regular rate Heart sounds: S1 normal heart sound present and S2 normal heart sound present Peripheral pulses: Peripheral pulses 2+ throughout GI Inspection: Yes normal to inspection Skin Other: +2 edema, large rope-like varicosities greater than 4 mm CEAP Classification C4 - skin color changes Ep - Etiology Primary As - superficial veins P - reflux General skin exam: dry skin Neuro General: oriented to person, oriented to place and oriented to time Extrem Right lower extremity: full ROM, normal capillary refill and edema Left lower extremity: full ROM, normal capillary refill and edema Psych Mental Status: mental status grossly normal Assessment & Plan Assessment & Plan (1) Varicose veins of left lower extremity with inflammation: Code(s): I83.12 - Varicose veins of left lower extremity with inflammation Plan: In short patient does have elements venous insufficiency. I do believe this may have progressed over the last 2 years. I have taken the liberty of ordering repeat venous insufficiency testing. We did discuss routine conservative measures including compression, elevation, and exercise. She will follow up with us after testing. Orders: Orders US venous insuf bilat 1 Week I83.12 - Varicose veins of left lower extremity with inflammation Coding Level of Care Code Est Pt Level 3 (25766) Diagnoses Varicose veins of left lower extremity with inflammation I83.12
== END 2023-12-14 11:32 | disposition home or self-care (01) ==
LOC: HO.HVS 10:59
PROVIDERS: PCP Nurse Practitioner Family; Visit Provider Surgery Vascular Surgery
DX: I83.12 Varicose veins of left lower extremity with inflammation (principal)
CPT/HCPCS: 99213

== ENCOUNTER → 2023-12-14 10:59 | Outpatient (BNVA) | payer MEDICARE, SELFPAY | PROVIDERS: PCP Nurse Practitioner Family; Visit Provider Surgery Vascular Surgery | DX: I83.12 Varicose veins of left lower extremity with inflammation (principal) | CPT/HCPCS: 99212 ==

== ENCOUNTER 2023-12-19 08:40 | Outpatient (REF) | payer MEDICARE, SELFPAY ==
--- NOTE | ~2023-12-19 | MM_ITS ---
EXAMINATION: MM SCREENING DIGITAL BREAST TOMOSYNTHESIS, BILATERAL CLINICAL INFORMATION: Screening. Asymptomatic. COMPARISON: Mammography: 12/05/2022, 12/09/2021, 10/31/2020, and studies dating back to January 14, 2016 TECHNIQUE: Digital breast tomosynthesis is performed in both the craniocaudal and mediolateral oblique views along with computer-aided detection (CAD). Synthesized 2D images are generated from the tomosynthesis. FINDINGS: There are scattered areas of fibroglandular density (ACR BI-RADS breast composition Category b). There are a few loosely grouped benign-appearing calcifications left breast upper medial aspect. A focal asymmetry in the inferomedial left breast, posterior one third, has been present on multiple prior studies and is benign. Otherwise there are no suspicious masses, suspicious grouped calcifications, or areas of architectural distortion in either breast. The parenchymal pattern is stable from prior exams. No skin or axillary abnormalities. MM/MM tomosynthesis screening BI IMPRESSION: No mammographic evidence of malignancy. Stable benign findings. ASSESSMENT: BI-RADS BI-RADS 2 - Benign Findings RECOMMENDATION: Routine annual mammography screening. 1 year F/U This examination should not preclude the clinical evaluation of a suspicious palpable abnormality. This patient's information was entered into a reminder system with a target due date for their next mammogram.
== END 2023-12-19 08:41 | disposition home or self-care (01) ==
LOC: HO.MAMMO 08:40
PROVIDERS: PCP Nurse Practitioner Family; Visit Provider Registered Nurse
DX: Z12.31 Encounter for screening mammogram for malignant neoplasm of breast (principal)
CPT/HCPCS: 77063; 77067

== ENCOUNTER → 2023-12-19 09:00 | Outpatient (BNV) | payer MEDICARE, SELFPAY | PROVIDERS: PCP Nurse Practitioner Family; Visit Provider Radiology Diagnostic Radiology | DX: Z12.31 Encounter for screening mammogram for malignant neoplasm of breast (principal) | CPT/HCPCS: 77063; 77067 ==

== ENCOUNTER 2024-01-01 13:13 | Outpatient (REF) | payer MEDICARE, SELFPAY ==
--- NOTE | ~2024-01-01 | XR_ITS ---
EXAMINATION: XR SACRUM AND COCCYX CLINICAL INFORMATION: Pain, post fall. COMPARISON: None available. TECHNIQUE: 2 views of the sacrum and 2 views of the coccyx were obtained. FINDINGS: No displaced fractures or subluxation. SI joints are symmetric. Pubic symphysis is maintained. Stable anterolisthesis at L4-L5 and L5-S1. Multiple densities overlying the pelvis could be related with diverticuli and/or calcified fibroids. Scattered vascular calcifications. XR/XR sacrum coccyx min 2V IMPRESSION: No discrete sacral nor coccygeal fracture/subluxation. If the patient has persistent pain on short-term follow-up, consider obtaining an MRI of the sacrum/pelvis without contrast to exclude a radiographically occult fracture.
== END 2024-01-01 13:14 | disposition home or self-care (01) ==
LOC: HO.HHCX 13:13
PROVIDERS: Visit Provider Nurse Practitioner Family
DX: M53.3 Sacrococcygeal disorders, not elsewhere classified (principal); Z91.81 History of falling
CPT/HCPCS: 72220

== ENCOUNTER 2024-01-04 10:06 | Outpatient (REF) | payer MEDICARE, SELFPAY ==
--- NOTE | ~2024-01-04 | XR_ITS ---
EXAMINATION: XR LUMBOSACRAL SPINE WITH OBLIQUES CLINICAL INFORMATION: Spondylolisthesis of lumbar region COMPARISON: 07/18/2023 TECHNIQUE: AP, both oblique, and lateral views of the lumbar spine. Lateral view of the lumbosacral junction. Flexion and extension views FINDINGS: There is stable marked levoscoliosis with rotation of vertebral bodies to the left and worsening cough L5-S1 anterior spondylolisthesis, unchanged on flexion and extension views and grade 1 anterior listhesis of L4 over L5 XR/XR lumbar spine 4V min IMPRESSION: Worsening cough spondylolisthesis of L5 over S1 and stable spondylolisthesis of L4 over L5. Marked levoscoliosis
== END 2024-01-04 10:07 | disposition home or self-care (01) ==
LOC: HO.HOSX 10:06
PROVIDERS: PCP Registered Nurse; Visit Provider Physical Medicine & Rehabilitation
DX: M43.16 Spondylolisthesis, lumbar region (principal); M51.26 Other intervertebral disc displacement, lumbar region; G89.29 Other chronic pain; Z91.81 History of falling; Z79.899 Other long term (current) drug therapy
CPT/HCPCS: 72110; 99202

== ENCOUNTER 2024-01-04 10:06 | Outpatient (AMB) | payer MEDICARE, SELFPAY ==
[2024-01-04 10:13] VITALS: BMI 20.7
--- NOTE | 2024-01-04 10:13 | A.OFFVIS_ITS ---
Intake Vital Signs 01/04/24 10:13 Height 5 ft 7 in Weight 132 lb BMI 20.7 Intake Visit Reasons: [employer]-Bi low back pain without sciatica Intake Note: Eva 73 yr old female presents today for a new patient visit for her lower back pain. States pain started in 2017. No specific injury she can recall. States she has pain when laying, walking and standing. She has to stretch every morning to be able to get out of bed. She has tried P.T, chiropractor, OTC ointment with temporary relief. She had an injection to her sciatic nerve about 5 years ago an d has not bother her since. Patient referred by her PCP Allergies DEVORAH Inhibitors Allergy (Severe, Verified 01/04/24 10:21) congestion lisinopril [LISINOPRIL] Allergy (Severe, Verified 01/04/24 10:21) SEVERE CONGESTION tetracycline [TETRACYCLINE] Allergy (Intermediate, Verified 01/04/24 10:21) LETHARGIC, drowsiness pollen Allergy (Intermediate, Uncoded 01/04/24 10:21) runny nose Medication List - Last Reconciled 01/04/24 by Jeannie Mitchell MD aspirin 81 mg PO DAILY atorvastatin 20 mg PO DAILY buprenorphine-naloxone 8-2 mg 10 mg sublingual DAILY celecoxib mg PO cetirizine 10 mg PO DAILY fluoxetine (Prozac) 10 mg PO DAILY fluticasone propionate 50 mcg/actuation 1 spray intranasal DAILY furosemide 20 mg PO DAILY PRN hydrochlorothiazide 25 mg PO DAILY insulin glargine (Lantus U-100 Insulin) 5 units subcut BEDTIME insulin syringe-needle U-100 As directed losartan 100 mg PO DAILY metformin ER 1,000 mg PO BID sodium,potassium,mag sulfates 17.5-3.13-1.6 gram (Suprep Bowel Prep Kit) DILUTE; drink full amount early evening before AND next morning at least 2 hr before procedure; follow w 960 mL water PO HPI HPI Comments History of Present Illness Details Chronic pain, since 2016. Seen back in Pain Management 2020 and PSSP longer than that. Only had right SI injection with PSSP, which actually helped the SI joint. No other lumbar injections. Her chronic pain is left lower back, feels it is swollen pointing to quadratus lumborum. Not aware of MRI results from 2022. The pain would go to left leg, down to posterior thigh. With tingling on both lower legs. Has gone to vascular, getting tests/xrays next week per patient. Sometimes numbness on feet. Back pain is all the time. Worse with walking, but not sure if claudication type. Fell twice at home, seen by PCP, ordered sacral xray. Report not available. Has been chronically constipated on/off 1 month, PCP is aware. No incontinence. Last PT did not help. [facility] Medical History (Updated 01/04/24 @ 10:44 by Jeannie Mitchell MD) Chronic back pain Lumbar disc herniation Spondylolisthesis, lumbar region Diverticulosis Colon cancer screening DVT (deep venous thrombosis) Hx of opioid abuse Trochanteric bursitis of right hip Lumbar spondylosis Chronic right hip pain Nondependent tobacco use disorder Unspecified pruritic disorder Mild nonproliferative diabetic retinopathy Allergic rhinitis HTN (hypertension) Hepatitis C Diabetes Surgical History H/O colonoscopy Family History Mother Enlarged heart Father No problems noted. Social History Patient Tobacco Use Status: Current everyday Tobacco user Tobacco use type: Cigarette Cigarettes Per Day: 5 Current occupational status: retired Current occupation: rt hand Review of Systems Const All systems reviewed & are unremarkable except as noted in HPI and below Physical Exam Vital Signs: BMI result Body Mass Index 20.7 Constitutional: Patient appears to be in no acute distress, well nourished and well developed. Patient was appropriately conversant and oriented. Good historian. MSK: Stands slightly bent forward and tilted to the right. No pain with palpation over the lumbar area. Points to left quadratus lumborum but nontender to touch. SI joints and GT nontender. She did have back pain and hip flexion weakness noted when she was getting up from seated position or going on a lying down position. Lumbar ROM was full. Straight-leg raising test negative. FABERE test positive bilateral. Neurological: Hip flexion weakness noted as mentioned earlier. Reflexes intact and symmetric. Vaughn?s negative bilaterally. Babinski was down going bilaterally. Clonus was negative. Gait is antalgic without loss of balance. Results Reviewed Results Reviewed: I independently reviewed the results of lumbar MRI lumbar x-rays, see under assessment area. Ordering Physician: Maria Luz Cho NP Date of Service: 08/09/21 Procedure(s): MR lumbar spine wo con Accession Number(s): [id number] cc: Maria Luz Cho NP~ EXAMINATION: MR LUMBAR SPINE WITHOUT CONTRAST CLINICAL INFORMATION: 71-year-old with chronic low back pain and bilateral leg pain and weakness. Spondylolisthesis, lumbar region. COMPARISON: None TECHNIQUE: MRI of the lumbar spine was obtained using routine sequences without contrast. FINDINGS: Coronal Alignment: Emfywnun-ap-llrsze lumbar rotatory levoscoliosis, convex to the left at L2-L3. There is nobts-ul-ycon lateral listhesis at L4-L5. There is jnue-di-iugih lateral listhesis at T12-L1. Sagittal Alignment: There is 5 mm of grade 1 spondylolisthesis at L5-S1, likely degenerative. There is 4 mm of grade 1 degenerative spondylolisthesis at L4-L5, and there is trace rotatory anterolisthesis at L3-L4. There is trace retrolisthesis at T12-L1. Lumbosacral Junction: Normal. Vertebral Bodies: Vertebral body heights are well maintained. No definite compression fractures are identified. Disc Spaces and Endplates: Sadbsyfh-ad-sdwyxb disc space height loss asymmetric to the left at L5-S1 with intradiscal degenerative signal changes with subchondral degenerative changes along the inferior endplate of L5 and mild spondylosis. Mild disc space height loss and disc desiccation at L4-L5 with Schmorl's nodes and mild spondylosis. Qnif-cd-aefglutf disc space height loss asymmetric to the right at L3-L4 with disc desiccation and moderate spondylosis. Severe disc space height loss, disc desiccation, Schmorl's nodes, and spondylosis at T12-L1, T11-T12, T10-T11, T9-T10, and T8-T9. Probable intradiscal vacuum disc phenomenon at L4-L5 and L5-S1. Bone Marrow: Type I degenerative marrow signal changes along the endplates at L5-S1 and L2-L3. Conus Medullaris: Terminates at L1-L2. Morphology and signal is normal. Intradural Nerve Roots: Crowding of the intradural nerve roots at L4-L5 and, to a lesser degree, at L3-L4 consistent with multilevel spinal stenosis. L5-S1: Unroofing of the posterior disc margin consistent with grade 1 spondylolisthesis with bilateral paravertebral/posterolateral disc-osteophyte complex and severe bilateral facet arthropathy. There is mild left subarticular recess stenosis with litupmflkv-pw-tops central spinal canal stenosis with possible encroachment on the traversing left S1 nerve root. There is severe left-sided and upvj-vd-jbxfgutz right-sided craniocaudal neural foraminal stenosis with left L5 nerve root impingement. L4-L5: Unroofing of the posterior disc margin noted with superimposed disc bulging and a superimposed central to right subarticular extruded disc herniation with mild cephalad migration. Ligamentum flavum thickening and severe bilateral facet arthropathy is noted with severe central spinal canal stenosis and crowding of the intradural nerve roots, with moderate bilateral lateral recess stenosis. There is severe right subarticular recess stenosis, as well, and there is ozse-ad-kuraqpqp left-sided and bujnomlw-uj-mgswee right-sided neural foraminal stenosis with right L4 nerve root impingement. L3-L4: Mild disc bulging is noted with a superimposed right central to subarticular and foraminal disc herniation, with flattening of the dural sac asymmetric to the right. There is marked ligamentum flavum thickening, and there is severe right-sided and moderate left-sided facet arthropathy. There is moderate central spinal canal stenosis with crowding of the intradural nerve roots and mild narrowing of the right subarticular recess. There is severe right-sided neural foraminal stenosis with right L3 nerve root impingement. L2-L3: Small left paramedian to foraminal disc protrusion. Mild left-sided and xyxdbhmh-ae-kzzwbm right-sided facet hypertrophic degenerative change with mild right-sided neural foraminal narrowing without canal stenosis. L1-L2: Slight retrolisthesis is noted with a small right paramedian disc protrusion and moderate bilateral facet arthrosis with jnvl-ux-xwmcildu right-sided neural foraminal stenosis. No spinal canal stenosis. Posterolateral disc-osteophyte complex asymmetric to the right at T12-L1 which is not imaged in the axial plane with moderate bilateral facet arthropathy at this level, with mild left-sided and moderate right-sided neural foraminal stenosis without spinal canal stenosis. Small left paramedian disc protrusion at T11-T12 with moderate left-sided facet arthropathy and moderate left-sided neural foraminal stenosis. There is facet arthropathy, left more than right, at the remaining visualized thoracic levels. Paraspinal/Retroperitoneal: The paravertebral soft tissues are remarkable for mild generalized diffuse posterior paraspinal muscle volume loss. MR/MR lumbar spine wo con IMPRESSION: 1. Jfwtvjtt-nq-zxoyad rotatory lumbar levoscoliosis, with multilevel lateral subluxations, with grade 1 spondylolisthesis at L4-L5 and L5-S1 and trace retrolisthesis at L1-L2 and T12-L1. 2. Multilevel DDD and spondylosis, as detailed above, with extensive multilevel bilateral facet arthropathy and ligamentum flavum thickening. Multilevel disc bulging and disc herniations are described above, with severe spinal canal stenosis at L4-L5 and moderate spinal canal stenosis at L3-4 with mild spinal canal stenosis at L5-S1. 3. Multilevel bilateral neural foraminal stenosis, most severe on the left at L5-S1 and on the right at L3-L4, bilaterally at L4-L5, right more than left, as detailed above. 4. Multilevel lower thoracic degenerative changes, as discussed above. Ordering Physician: Arianna Wellington NP Date of Service: 07/18/23 Procedure(s): XR lumbar spine 2-3V Accession Number(s): [id number] cc: Arianna Wellington NP~ EXAMINATION: XR LUMBOSACRAL SPINE CLINICAL INFORMATION: Low back pain COMPARISON: 07/01/2021 TECHNIQUE: Three views of the lumbosacral spine. FINDINGS: There is stable levoscoliosis of lumbar spine with rotation of vertebral bodies to the left. There is grade 1 listhesis of L4 over L5 and grade 2 anterior listhesis of L5 over S1. And narrowing cough L3-L4, L4-L5 and L5-S1. XR/XR lumbar spine 2-3V IMPRESSION: No interval change. Multilevel degenerative changes with grade 1 listhesis of L4 over L5 and grade 2 anterolisthesis of L5 over S1. I reviewed records from the following: Seen by pain management 2020 for SI joint. Assessment & Plan Assessment & Plan (1) Spondylolisthesis, lumbar region: Code(s): M43.16 - Spondylolisthesis, lumbar region (2) Lumbar disc herniation: Code(s): M51.26 - Other intervertebral disc displacement, lumbar region (3) Chronic back pain: Code(s): M54.9 - Dorsalgia, unspecified; G89.29 - Other chronic pain Qualifiers: Back pain location: low back pain Back pain laterality: bilateral Sciatica presence: without sciatica Qualified Code(s): M54.50 - Low back pain, unspecified; G89.29 - Other chronic pain (4) History of recent fall: Code(s): Z91.81 - History of falling Plan 1. Chronic back pain - MRI 2022 showed significant right L4-5 disc herniation with severe foraminal stenosis and moderate central stenosis; spondylolisthesis grade 2 seen on both xray and MRI. Will send for lumbar flexion and extension views to assess movement; if any, will refer to Neurosurgery. We discussed option for lumbar epidural injection, will refer to Pain Management for the inje ction. I will see her for follow up after the injection. 2. Recent fall, PCP ordered pelvic xray but report not yet done. We looked at images and didn't see any obvious fracture. Await final reading. Advised to use donut pillow when sitting if can. Assessment and plan discussed with patient, and patient was agreeable. All questions were answered thoroughly. Jeannie Mitchell MD, BREE Board Certified, [place] [employer] and Rehabilitation (ABPMR) Board Certified, [place] [employer] Electro[employer] (ABEM) Orders: Orders XR lumbar spine 6V w bending Today M43.16 - Spondylolisthesis, lumbar region Referrals Pain Management Referral M43.16 - Spondylolisthesis, lumbar region, M51.26 - Other intervertebral disc displacement, lumbar region Coding Level of Care Code New Pt Level 4 (43610) Diagnoses Spondylolisthesis, lumbar region M43.16 Lumbar disc herniation M51.26 Chronic bilateral low back pain without sciatica M54.50; G89.29 Back pain location: low back pain Back pain laterality: bilateral Sciatica presence: without sciatica History of recent fall Z91.81
== END 2024-01-04 12:07 | disposition home or self-care (01) ==
PROVIDERS: PCP Registered Nurse; Visit Provider Physical Medicine & Rehabilitation
DX: M43.16 Spondylolisthesis, lumbar region (principal); M51.26 Other intervertebral disc displacement, lumbar region; G89.29 Other chronic pain; Z91.81 History of falling
CPT/HCPCS: 99203

== ENCOUNTER 2024-01-11 10:12 | Outpatient (REF) | payer MEDICARE, SELFPAY ==
--- NOTE | ~2024-01-11 | US_ITS ---
EXAMINATION: US LOWER EXTREMITY VENOUS (REFLUX EXAM), BILATERAL CLINICAL INFORMATION: Chronic venous insufficiency with lower extremity varicose veins with inflammation. History of prior left wrist saphenous vein closure COMPARISON: 02/14/2022 TECHNIQUE: Color flow triplex imaging and compression Doppler was performed to evaluate both the deep and the superficial systems bilaterally. To evaluate the superficial system, the examination was performed in the upright position. Color-flow Doppler ultrasound and compression ultrasound were utilized. In addition, maneuvers were utilized to demonstrate reflux. FINDINGS: 1. DEEP VENOUS ULTRASOUND OF THE RIGHT LOWER EXTREMITY: Common Femoral Vein: Compressible, normal respiratory variation and augmented flow. Femoral Vein: Compressible, normal color flow and augmentation. Popliteal Vein: Compressible, normal augmentation. Chronic wall calcifications. Deep Reflux: Deep venous reflux is seen within the common femoral vein, superficial femoral vein and popliteal vein. Reflux ranges from 704 ms to 2264 ms There is no evidence of a [place]'s cyst. 2. SUPERFICIAL ULTRASOUND WITH DOPPLER OF RIGHT LOWER EXTREMITY: GREAT SAPHENOUS VEIN: Saphenofemoral Junction: 0.7 cm; Reflux: 612 ms Proximal Thigh: 0.3 cm; Reflux: 0 ms Mid Thigh: 0.3 cm; Reflux: 780 ms Distal Thigh: 0.3 cm; Reflux: 0 ms At Knee: 0.3 cm; Reflux: 0 ms Proximal Calf: 0.3 cm; Reflux: 0 ms Mid Calf: 0.2 cm; Reflux: 0 ms Distal Calf: 0.3 cm; Reflux: 0 ms DUPLICATED MEDIAL GREAT SAPHENOUS VEIN: Diameter: None imaged Reflux: NA DUPLICATED LATERAL GREAT SAPHENOUS VEIN: Diameter: 0.3 cm Reflux: None SMALL SAPHENOUS VEIN: Saphenopopliteal Junction: 0.2 cm; Reflux: 0 ms Proximal: 0.2 cm; Reflux: 0 ms Distal: 0.2 cm; Reflux: 0 ms VEIN OF GIACOMINI: Size: NA Reflux: NA PERFORATORS: Location: None significant Size: NA Reflux: NA VARICOSITIES: Location: Proximal thigh and mid calf Size: 0.3 to 0.5 cm Reflux: None 3. DEEP VENOUS ULTRASOUND OF THE LEFT LOWER EXTREMITY: Common Femoral Vein: Compressible, normal respiratory variation and augmented flow. Femoral Vein: Compressible, normal color flow and augmentation. Wall calcification is seen in the mid superficial femoral vein. Popliteal Vein: Compressible, normal augmentation. Deep Reflux: There is no evidence of reflux in the deep system in either the common femoral vein, superficial femoral or the popliteal vein. There is no evidence of a Canada's cyst. 4. SUPERFICIAL ULTRASOUND WITH DOPPLER OF LEFT LOWER EXTREMITY: GREAT SAPHENOUS VEIN: Saphenofemoral Junction: 1.0 cm; Reflux: 0 ms Proximal Thigh: 0.2 cm; Reflux: 0 ms Mid Thigh: Not visualized Distal Thigh: Not visualized At Knee: Not visualized Proximal Calf: 0.3 cm; Reflux: 1364 ms Mid Calf: 0.3 cm; Reflux: 1288 ms Distal Calf: 0.3 cm; Reflux: 584 ms DUPLICATED MEDIAL GREAT SAPHENOUS VEIN: Diameter: None imaged Reflux: NA DUPLICATED LATERAL GREAT SAPHENOUS VEIN: Diameter: 0.3 cm Reflux: 2168 ms SMALL SAPHENOUS VEIN: Saphenopopliteal Junction: 0.2 cm; Reflux: 0 ms Proximal: 0.2 cm; Reflux: 0 ms Distal: 0.2 cm; Reflux: 2856 ms VEIN OF GIACOMINI: Size: NA Reflux: NA PERFORATORS: Location: Posterior mid calf into the small saphenous vein Size: 0.4 cm Reflux: 2148 ms VARICOSITIES: Location: Posterior proximal calf and medial distal calf Size: 0.4 to 0.5 cm Reflux: None US/US venous insuf bilat IMPRESSION: Right: Segmental areas of reflux within the right great saphenous vein as described above. Diffuse deep venous reflux in the right lower extremity. Wall calcification of the right popliteal vein likely from a prior deep venous thrombosis Left: Left great saphenous vein from the mid thigh to the knee not visualized consistent with prior closure. Residual great saphenous vein in the calf with severe reflux as described above. There is also severe reflux in the distal small saphenous vein in the calf. Varicose veins are seen within the calf as described above.
== END 2024-01-11 10:13 | disposition home or self-care (01) ==
LOC: HO.US 10:12
PROVIDERS: PCP Nurse Practitioner Family; Visit Provider Surgery Vascular Surgery
DX: I83.12 Varicose veins of left lower extremity with inflammation (principal)
CPT/HCPCS: 93970

== ENCOUNTER 2024-02-13 06:13 | Outpatient (REF) | payer MEDICARE, SELFPAY ==
--- NOTE | ~2024-02-13 | FL_ITS ---
EXAMINATION: XR FLUOROSCOPY WITH IMAGES CLINICAL INFORMATION: Lumbar pain injection. COMPARISON: Lumbar spine radiographs dated 01/04/2024. TECHNIQUE: Fluoroscopy Supervised By: Dr. Jean Boone. Fluoroscopy Time: 0.3. Cumulative Dose: 6.11 mGy. DAP: 1.3 Gycm2. Images: 2. FINDINGS: The submitted images show a needle and injected contrast in the vicinity of the L5-S1 posterior elements. FL/FL guidance in treatment room IMPRESSION: Intraoperative fluoroscopic guidance is provided during lumbar spine pain management procedure. Please see the patient's Operative Report for full procedural details.
== END 2024-02-13 06:14 | disposition home or self-care (01) ==
LOC: CF 06:13
PROVIDERS: Visit Provider Anesthesiology
DX: M51.26 Other intervertebral disc displacement, lumbar region (principal); M54.17 Radiculopathy, lumbosacral region
CPT/HCPCS: 64483; J3301; Q9967

== ENCOUNTER 2024-02-13 10:16 | Outpatient (AMB) | payer MEDICARE, MEDICAID, SELFPAY ==
[2024-02-13 10:26] VITALS: BP 126/60; PULSE 84; RESP 18; O2SAT 96; BMI 20.7
--- NOTE | 2024-02-13 10:26 | A.OFFVIS_ITS ---
Vital Signs 02/13/24 10:26 02/13/24 11:31 Height 5 ft 7 in Weight 132 lb BMI 20.7 BP 126/60 122/68 Blood Pressure Location Lt brachial Lt brachial Position Sitting Sitting Respiration 18 16 Pulse 84 88 Pulse Source Pulse Oximeter Pulse Oximeter Pulse Oximetry (%) 96 97 Oxygen Delivery Method Room Air Room Air Comment Pre-Op Post-Op Intake Visit Reasons: L5, S1 INTERLAMINAR ARMANDO Allergies DEVORAH Inhibitors Allergy (Severe, Verified 01/04/24 10:21) congestion lisinopril [LISINOPRIL] Allergy (Severe, Verified 01/04/24 10:21) SEVERE CONGESTION tetracycline [TETRACYCLINE] Allergy (Intermediate, Verified 01/04/24 10:21) LETHARGIC, drowsiness pollen Allergy (Intermediate, Uncoded 01/04/24 10:21) runny nose [facility] Medical History (Updated 02/13/24 @ 11:42 by Jean Boone MD) Chronic back pain Lumbar disc herniation Spondylolisthesis, lumbar region Diverticulosis Colon cancer screening DVT (deep venous thrombosis) Hx of opioid abuse Trochanteric bursitis of right hip Lumbar spondylosis Chronic right hip pain Nondependent tobacco use disorder Unspecified pruritic disorder Mild nonproliferative diabetic retinopathy Allergic rhinitis HTN (hypertension) Hepatitis C Diabetes Surgical History H/O colonoscopy Family History Mother Enlarged heart Father No problems noted. Social History (Updated 01/04/24 @ 10:23 by LETITIA Diamond) Patient Tobacco Use Status: Current everyday Tobacco user Tobacco use type: Cigarette Cigarettes Per Day: 5 Current occupational status: retired Current occupation: rt hand Physical Exam Vital Signs: Last Vital Signs Pulse 88 02/13/24 11:31 Resp 16 02/13/24 11:31 BP 122/68 02/13/24 11:31 Pulse Ox 97 02/13/24 11:31 Oxygen Delivery Method Room Air 02/13/24 11:31 BMI result Body Mass Index 20.7 Assessment & Plan Assessment & Plan (1) Radiculopathy, lumbosacral region: Code(s): M54.17 - Radiculopathy, lumbosacral region Category: Medical Plan Interlaminar L5-S1 epidural steroid injection. ?Informed consent was explained to the patient. All questions were explained and answered.? The patient was taken inside the operating room where she was positioned prone on the operating table. Time-out was performed delineating correct site, side, the nature of the procedure, patient's allergy, preoperative antibiotic if needed.? All operating room staff was participating in OR time-out procedure. The lower back were prepped with ChloraPrep and draped with sterile towels.? Sterilely draped C-arm was brought over the operating field and sq picture of?L5 and S1 vertebrae were delineated on the screen.? The patient reported her pain being stronger on the left side so left upper lamina of S1 was chosen as the starting point of the injection. The point of interest was chosen as close to spinous process of S1 as possible. It was injected with 1% lidocaine forming skin wheal and after that 20 gauge Touhy epidural needle was inserted through the skin wheal and advanced to the interlaminar L5-S1 interspace on intermittent anterior posterior and lateral views using loss of resistance to air to verify epidural space. When loss of resistance felt injection of the contrast was performed demonstrating posterior epidurogram. After that injection of the solution mixture of lidocaine 1% preservative-free mixed with Kenalog 40 mg was performed into the needle. The needle after that was withdrawn and sterile Band-Aid was applied. The patient tolerated procedure fairly well. She was taken outside of the operating room to recovery room where she recovered uneventfully. Orders: Orders FL guidance in treatment room Today M51.26 - Other intervertebral disc displacement, lumbar region Coding Level of Care Code Procedure Only Diagnoses Radiculopathy, lumbosacral region M54.17
[2024-02-13 11:31] VITALS: BP 122/68; PULSE 88; RESP 16; O2SAT 97
== END 2024-02-13 11:18 | disposition home or self-care (01) ==
LOC: HO.PMCPRC 10:16
PROVIDERS: PCP Nurse Practitioner Family; Visit Provider Anesthesiology
DX: M54.17 Radiculopathy, lumbosacral region (principal)
CPT/HCPCS: 64483

== ENCOUNTER 2024-02-27 09:11 | Outpatient (AMB) | payer MEDICARE, MEDICAID, SELFPAY ==
--- NOTE | 2024-02-27 09:25 | MHC.OFFVIS ---
Intake Visit Reasons: follow up [facility] 01/11/24 Intake Note: Patient presents for [facility] follow up. Patient states both legs hurt. Occasional cramping. Has bulging aching veins. Accompanied by: Self / Same As Patient Allergies DEVORAH Inhibitors Allergy (Severe, Verified 02/27/24 09:29) congestion lisinopril [LISINOPRIL] Allergy (Severe, Verified 02/27/24 09:29) SEVERE CONGESTION tetracycline [TETRACYCLINE] Allergy (Intermediate, Verified 02/27/24 09:29) LETHARGIC, drowsiness pollen Allergy (Intermediate, Uncoded 01/04/24 10:21) runny nose HPI HPI follow up [facility] 01/11/24: Details: Very pleasant 73-year-old female presents for follow-up regarding venous insufficiency. She has had prior left leg microphlebectomy in 2021 and had a prior ablation prior to that. She continues to have swelling and discomfort in particular the left calf. She now presents for follow-up with venous insufficiency testing. [facility] Medical History Chronic back pain Lumbar disc herniation Spondylolisthesis, lumbar region Diverticulosis Colon cancer screening DVT (deep venous thrombosis) Hx of opioid abuse Trochanteric bursitis of right hip Lumbar spondylosis Chronic right hip pain Nondependent tobacco use disorder Unspecified pruritic disorder Mild nonproliferative diabetic retinopathy Allergic rhinitis HTN (hypertension) Hepatitis C Diabetes Surgical History H/O colonoscopy Family History Mother Enlarged heart Father No problems noted. Social History Patient Tobacco Use Status: Current everyday Tobacco user Tobacco use type: Cigarette Cigarettes Per Day: 5 Current occupational status: retired Current occupation: rt hand Review of Systems Const Reports as per HPI ENT Reports no additional complaints Card Denies chest pain, Denies chest pain at rest and Denies chest pain with activity Resp Denies chest congestion and Denies cough GI Reports no additional complaints Musc Details: pain over varicosities, aching of lower extremities, swelling, cramping, heaviness and tiredness, itching Denies abnormal gait Skin/Breast Reports pruritus and Denies wounds Neuro Reports no additional complaints and Denies abnormal gait Psych Denies no additional complaints Physical Exam Const General: cooperative, healthy appearing and comfortable Orientation/consciousness: oriented to person, oriented to place and oriented to time Neck Carotids: no bruits Chest Chest palpation & inspection: normal inspection of the chest and normal palpation of entire chest wall Resp Effort & Inspection: normal respiratory effort and able to speak in complete sentences Cardio Rate: regular rate Heart sounds: S1 normal heart sound present and S2 normal heart sound present Peripheral pulses: Peripheral pulses 2+ throughout GI Inspection: Yes normal to inspection Skin Other: +2 edema, large rope-like varicosities greater than 4 mm left calf CEAP Classification C4 - skin color changes Ep - Etiology Primary As - superficial veins P - reflux General skin exam: dry skin Neuro General: oriented to person, oriented to place and oriented to time Extrem Right lower extremity: full ROM, normal capillary refill and edema Left lower extremity: full ROM, normal capillary refill and edema Psych Mental Status: mental status grossly normal Results Reviewed Results Reviewed: Brief summary of venous insufficiency testing is as follows: right great saphenous vein: negative right small saphenous vein: negative right accessory vein: none present left great saphenous vein: Positive left calf left small saphenous vein: negative left accessory vein: none present Please note there is no evidence of any venous aneurysms or significant tortuosity Assessment & Plan Assessment & Plan (1) Varicose veins of left lower extremity with inflammation: Code(s): I83.12 - Varicose veins of left lower extremity with inflammation Category: Medical Plan: This patient has varicose veins with inflammation. They continue to be a source of discomfort for the patient. The patient has tried conservative treatment with compression, leg elevation and exercise program for over 3 months time. They have been compliant with all treatment. This has provided minimal relief for the patient. I do not anticipate this course of treatment will alter the underlying etiology. The patient has been scheduled for lower extremity venous treatment inclusive of --- left great saphenous vein Cyanoacralate ablation. Risks, benefits, and complications of this procedure has been discussed in detail with the patient including but not limited to bleeding, infection, and the development of a DVT. The patient has demonstrated a clear understanding and has consented. We will schedule the patient as soon as possible. Thank you for allowing us to participate in this patient's care. If there are any questions or concerns please do not hesitate to contact us. Coding Level of Care Code Est Pt Level 4 (26343) Diagnoses Varicose veins of left lower extremity with inflammation I83.12
== END 2024-02-27 10:05 | disposition home or self-care (01) ==
PROVIDERS: PCP Nurse Practitioner Family; Visit Provider Surgery Vascular Surgery
DX: I83.12 Varicose veins of left lower extremity with inflammation (principal)
CPT/HCPCS: 99214

== ENCOUNTER → 2024-02-27 09:11 | Outpatient (BNVA) | payer MEDICARE, SELFPAY | PROVIDERS: PCP Nurse Practitioner Family; Visit Provider Surgery Vascular Surgery | DX: I83.12 Varicose veins of left lower extremity with inflammation (principal) | CPT/HCPCS: 99212 ==

== ENCOUNTER 2024-03-29 11:21 | Outpatient (AMB) | payer MEDICARE, MEDICAID, SELFPAY ==
[2024-03-29 12:29] VITALS: BMI 20.7
--- NOTE | 2024-03-29 12:29 | MHC.OFFVIS ---
Vital Signs 03/29/24 12:29 Height 5 ft 7 in Weight 132 lb BMI 20.7 Intake Visit Reasons: Left GSV Venaseal Accompanied by: Self / Same As Patient Allergies DEVORAH Inhibitors Allergy (Severe, Verified 03/29/24 12:30) congestion lisinopril [LISINOPRIL] Allergy (Severe, Verified 03/29/24 12:30) SEVERE CONGESTION tetracycline [TETRACYCLINE] Allergy (Intermediate, Verified 03/29/24 12:30) LETHARGIC, drowsiness pollen Allergy (Intermediate, Uncoded 03/29/24 12:30) runny nose [facility] Medical History Chronic back pain Lumbar disc herniation Spondylolisthesis, lumbar region Diverticulosis Colon cancer screening DVT (deep venous thrombosis) Hx of opioid abuse Trochanteric bursitis of right hip Lumbar spondylosis Chronic right hip pain Nondependent tobacco use disorder Unspecified pruritic disorder Mild nonproliferative diabetic retinopathy Allergic rhinitis HTN (hypertension) Hepatitis C Diabetes Surgical History H/O colonoscopy Family History Mother Enlarged heart Father No problems noted. Social History Patient Tobacco Use Status: Current everyday Tobacco user Tobacco use type: Cigarette Cigarettes Per Day: 5 Current occupational status: retired Current occupation: rt hand Physical Exam Vital Signs: BMI result Body Mass Index 20.7 Office Procedures Vascular Office Procedure Details Details: Diagnosis: Left Leg varicose veins with inflammation Procedure: Endovenous Ablation of the left Great Saphenous Vein with VenaSeal Closure System Anesthesia: Local infiltration 5 cc, Estimated Blood Loss: min Specimen: none Duplex ultrasound was used to map out the insufficient saphenous vein, and access was determined and marked on the overlying skin. The depth and diameter of the vein(s) to be treated was documented. The patient was placed supine on the procedure table and the leg was prepped and draped using sterile technique. Ultasound guidance was again used to localize the access site. 1% lidocaine was injected as a local anesthetic in the subcutaneous tissues at the target location in the GSV in the lower leg. Using ultrasound guidance, access was gained at this location with the 19 gauge thin walled access needle and followed by introduction of a short guidewire, location confirmed with ultrasound. A small, 3 mm incision was made at the access site to allow for introduction and placement of the 7 Fr x7cm introducer/dilator. The dilator and guidewire were removed. The 0.035 guidewire from the VenaSeal kit was then introduced and positioned at the saphenofemoral junction using ultrasound guidance. The 80 cm 7 Fr introducer sheath/dilator was positioned 5cm from the saphenofemoral junction. The guidewire and dilator were removed, and the remaining sheath was flushed with sterile saline, with the syringe remaining in place prior to the next steps. The cyanoacrylate adhesive was precisely primed into the 5 F delivery catheter and this catheter/syringe combination was attached within the dispenser gun. This assembly was introduced through the 7F sheath and positioned as far proximal as it would go. We were treating more of the distal calf.. The steps from the IFU were followed for dispensing amounts, locations and compression times, 2 aliquots proximally with 3 minutes of compression, and 1 aliquot every 3 cm distally with 30 sec of compression along the course of the vessel. Following the last injection and compression sequence, the catheter and introducer sheath were pulled out from the access site. Hemostasis was achieved with manual compression and an adhesive bandage was applied to the incision. Ultrasound confirmed complete coaptation and closure of the treated segments of the GSV, and the absence of any DVT at the saphenofemoral junction. Treatment time was approximately 2 minutes and the vein length treated was 10 cm. The drapes were removed and the patient cleaned and prepared for discharge. Post op ultrasound check is scheduled for 48-72 hours and the patient was given written post-op instructions. 10705 - Endoven Ther Chem Adhes 1st All charges added?: Procedure code (CPT) selection complete Assessment & Plan Assessment & Plan (1) Varicose veins of left lower extremity with inflammation: Comment: 03/29/2024 - left great saphenous vein Cyanoacralate ablation Code(s): I83.12 - Varicose veins of left lower extremity with inflammation Category: Medical Plan: See op note Coding Level of Care Code Procedure Only Diagnoses Varicose veins of left lower extremity with inflammation I83.12 CPT Codes Details - Vascular 3: 05070 - Endoven Ther Chem Adhes 1st ([id number])
== END 2024-03-29 12:23 | disposition home or self-care (01) ==
LOC: HO.HVS 11:21
PROVIDERS: PCP Nurse Practitioner Family; Visit Provider Surgery Vascular Surgery
DX: I83.12 Varicose veins of left lower extremity with inflammation (principal)
CPT/HCPCS: 36482

== ENCOUNTER → 2024-03-29 11:21 | Outpatient (BNVA) | payer MEDICARE, SELFPAY | PROVIDERS: PCP Nurse Practitioner Family; Visit Provider Surgery Vascular Surgery | DX: I83.12 Varicose veins of left lower extremity with inflammation (principal) | CPT/HCPCS: 36482 ==

== ENCOUNTER 2024-04-01 10:42 | Outpatient (REF) | payer MEDICARE, SELFPAY ==
--- NOTE | ~2024-04-01 | US_ITS ---
EXAMINATION: US DOPPLER LOWER EXTREMITY POST VENASEAL, LEFT CLINICAL INFORMATION: Status post left GSV venaseal COMPARISON: None TECHNIQUE: Grayscale and color Doppler ultrasound of the targeted lower extremity veins was performed. FINDINGS: DEEP VENOUS SYSTEM: Common Femoral Vein: Normal color flow and compressibility Femoral Vein: Normal color flow and compressibility. Popliteal Vein: Normal color flow and compressibility. Posterior tibial vein: Normal color flow. No evidence of DVT. SUPERFICIAL VENOUS SYSTEM: Complete occlusion with echogenic thrombus within the great saphenous vein beginning proximally 5.3 cm from the saphenofemoral junction. US/US venous duplex LE LT IMPRESSION: Occlusion of the left great saphenous vein without extension into the deep venous system. No left lower extremity DVT.
== END 2024-04-01 10:43 | disposition home or self-care (01) ==
LOC: HO.US 10:42
PROVIDERS: PCP Nurse Practitioner Family; Visit Provider Surgery Vascular Surgery
DX: M79.605 Pain in left leg (principal)
CPT/HCPCS: 93971

== ENCOUNTER 2024-04-11 10:36 | Outpatient (AMB) | payer MEDICARE, MEDICAID, SELFPAY ==
[2024-04-11 10:41] VITALS: BMI 20.7
--- NOTE | 2024-04-11 10:41 | A.OFFVIS_ITS ---
Vital Signs 04/11/24 10:41 Height 5 ft 7 in Weight 132 lb BMI 20.7 Intake Visit Reasons: 2 week follow up Left GSV Venaseal 03/29/24 Intake Note: 2 week follow up Left GSV Venaseal 03/29/24 w/ hx of Left Micro & Ablation. Pt states her Left leg has been hurting and swelling, Left leg. Leg swelling has somewhat decreased. Accompanied by: Self / Same As Patient Allergies DEVORAH Inhibitors Allergy (Severe, Verified 04/11/24 10:48) congestion lisinopril [LISINOPRIL] Allergy (Severe, Verified 04/11/24 10:48) SEVERE CONGESTION tetracycline [TETRACYCLINE] Allergy (Intermediate, Verified 04/11/24 10:48) LETHARGIC, drowsiness pollen Allergy (Intermediate, Uncoded 04/11/24 10:48) runny nose HPI HPI 2 week follow up Left GSV Venaseal 03/29/24: Details: Very pleasant 74-year-old female presents for evaluation follow-up regarding left leg swelling. She is undergone great saphenous vein ablation and did report some reduction swelling. She does have still a significantly swollen left calf. In addition she does have some swelling of the right side. She now presents for follow-up evaluation. Of note postprocedure ultrasound was negative for DVT. [facility] Medical History Chronic back pain Lumbar disc herniation Spondylolisthesis, lumbar region Diverticulosis Colon cancer screening DVT (deep venous thrombosis) Hx of opioid abuse Trochanteric bursitis of right hip Lumbar spondylosis Chronic right hip pain Nondependent tobacco use disorder Unspecified pruritic disorder Mild nonproliferative diabetic retinopathy Allergic rhinitis HTN (hypertension) Hepatitis C Diabetes Surgical History H/O colonoscopy Family History Mother Enlarged heart Father No problems noted. Social History (Updated 04/11/24 @ 10:49 by SAUL Diego) Patient Tobacco Use Status: Former Tobacco user Tobacco use type: Cigarette Cigarettes Per Day: 5 Current occupational status: retired Current occupation: rt hand Review of Systems Const Reports as per HPI ENT Reports no additional complaints Card Denies chest pain, Denies chest pain at rest and Denies chest pain with activity Resp Denies chest congestion and Denies cough GI Reports no additional complaints Musc Details: pain over varicosities, aching of lower extremities, swelling, cramping, heaviness and tiredness, itching Denies abnormal gait Skin/Breast Reports pruritus and Denies wounds Neuro Reports no additional complaints and Denies abnormal gait Psych Denies no additional complaints Physical Exam Vital Signs: BMI result Body Mass Index 20.7 Const General: cooperative, healthy appearing and comfortable Orientation/consciousness: oriented to person, oriented to place and oriented to time Neck Carotids: no bruits Chest Chest palpation & inspection: normal inspection of the chest and normal palpation of entire chest wall Resp Effort & Inspection: normal respiratory effort and able to speak in complete sentences Cardio Rate: regular rate Heart sounds: S1 normal heart sound present and S2 normal heart sound present Peripheral pulses: Peripheral pulses 2+ throughout GI Inspection: Yes normal to inspection Skin Other: +2 edema, significant skin color changes bilateral legs calfs and ankles CEAP Classification C4 - skin color changes Ep - Etiology Primary As - superficial veins P - reflux General skin exam: dry skin Neuro General: oriented to person, oriented to place and oriented to time Extrem Right lower extremity: full ROM, normal capillary refill and edema Left lower extremity: full ROM, normal capillary refill and edema Psych Mental Status: mental status grossly normal Results Reviewed Results Reviewed: Brief summary of venous insufficiency testing is as follows: right great saphenous vein: Positive right small saphenous vein: negative right accessory vein: none present left great saphenous vein: Ablated left small saphenous vein: Positive left accessory vein: none present Please note there is no evidence of any venous aneurysms or significant tortuosity Assessment & Plan Assessment & Plan (1) Varicose veins of left lower extremity with inflammation: Comment: 03/29/2024 - left great saphenous vein Cyanoacralate ablation Code(s): I83.12 - Varicose veins of left lower extremity with inflammation Category: Medical Plan: This patient has varicose veins with inflammation. They continue to be a source of discomfort for the patient. The patient has tried conservative treatment with compression, leg elevation and exercise program for over 3 months time. They have been compliant with all treatment. This has provided minimal relief for the patient. I do not anticipate this course of treatment will alter the underlying etiology. The patient has been scheduled for lower extremity venous treatment inclusive of --- left small saphenous vein radiofrequency ablation. Risks, benefits, and complications of this procedure has been discussed in detail with the patient including but not limited to bleeding, infection, and the development of a DVT. The patient has demonstrated a clear understanding and has consented. We will schedule the patient as soon as possible. Thank you for allowing us to participate in this patient's care. If there are any questions or concerns please do not hesitate to contact us. Coding Level of Care Code Est Pt Level 4 (17065) Diagnoses Varicose veins of left lower extremity with inflammation I83.12
== END 2024-04-11 11:15 | disposition home or self-care (01) ==
PROVIDERS: PCP Nurse Practitioner Family; Visit Provider Surgery Vascular Surgery
DX: I83.12 Varicose veins of left lower extremity with inflammation (principal)
CPT/HCPCS: 99214

== ENCOUNTER → 2024-04-11 10:36 | Outpatient (BNVA) | payer MEDICARE, SELFPAY | PROVIDERS: PCP Nurse Practitioner Family; Visit Provider Surgery Vascular Surgery | DX: I83.12 Varicose veins of left lower extremity with inflammation (principal) | CPT/HCPCS: 99212 ==

== ENCOUNTER 2024-06-07 12:26 | Outpatient (REF) | payer MEDICARE, SELFPAY ==
[2024-06-07 13:38] LABS: Hematocrit 38.9 % (37.0-47.0); Hemoglobin 12.6 g/dl (12.0-16.0); Mean Corpuscular HGB Conc 32.4 g/dl (31.0-35.0); Mean Corpuscular Hemoglobin 29.1 pg (27.0-33.0); Mean Corpuscular Volume 89.8 fL (80.0-98.0); Mean Platelet Volume 9.6 fL (9.4-12.3); Platelet Count 268 X10*3/uL (160-400); Red Blood Count 4.33 X10*6/uL (4.20-5.50); Red Cell Distribution Width 14.2 % (11.0-16.0); White Blood Count 6.2 X10*3/uL (4.8-10.8)
[2024-06-07 14:07] LABS: Alanine Aminotransferase 14 U/L (0-31); Albumin Level 4.5 g/dL (3.5-5.0); Alkaline Phosphatase 74 U/L (39-117); Anion Gap 16 (12-20); Aspartate Amino Transferase 19 U/L (5-31); Bilirubin Total 0.7 mg/dL (0.0-1.0); Blood Urea Nitrogen 23 mg/dL (9-16); Calcium 10.1 mg/dL (8.4-10.2); Carbon Dioxide 26 mmol/L (22-29); Chloride 102 mmol/L (96-108); Cholesterol 140 mg/dL (<200); Estimated Glomerular Filt Rate 54; Glucose Random 103 mg/dL (60-115); HDL Cholesterol 64 mg/dL (>40); LDL Cholesterol Calculated 66 mg/dL (<100); Potassium 3.6 mmol/L (3.3-5.1); Sodium 140 mmol/L (135-145); Total Protein 7.9 g/dL (6.5-8.0); Triglycerides 53 mg/dL (<150)
== END 2024-06-07 12:27 | disposition home or self-care (01) ==
LOC: HO.HHCL 12:26
PROVIDERS: Visit Provider Nurse Practitioner Family
DX: E11.9 Type 2 diabetes mellitus without complications (principal); Z79.4 Long term (current) use of insulin
CPT/HCPCS: 36415; 80053; 80061; 84443; 85027

== ENCOUNTER 2024-06-21 09:09 | Outpatient (AMB) | payer MEDICARE, SELFPAY ==
--- NOTE | 2024-06-21 09:32 | A.OFFVIS_ITS ---
Intake Visit Reasons: RFA Accompanied by: Self / Same As Patient Allergies DEVORAH Inhibitors Allergy (Severe, Verified 06/21/24 09:32) congestion lisinopril [LISINOPRIL] Allergy (Severe, Verified 06/21/24 09:32) SEVERE CONGESTION tetracycline [TETRACYCLINE] Allergy (Intermediate, Verified 06/21/24 09:32) LETHARGIC, drowsiness pollen Allergy (Intermediate, Uncoded 04/11/24 10:48) runny nose [facility] Medical History Chronic back pain Lumbar disc herniation Spondylolisthesis, lumbar region Diverticulosis Colon cancer screening DVT (deep venous thrombosis) Hx of opioid abuse Trochanteric bursitis of right hip Lumbar spondylosis Chronic right hip pain Nondependent tobacco use disorder Unspecified pruritic disorder Mild nonproliferative diabetic retinopathy Allergic rhinitis HTN (hypertension) Hepatitis C Diabetes Surgical History H/O colonoscopy Family History Mother Enlarged heart Father No problems noted. Social History Patient Tobacco Use Status: Former Tobacco user Tobacco use type: Cigarette Cigarettes Per Day: 5 Current occupational status: retired Current occupation: rt hand Office Procedures Vascular Office Procedure Details Details: Diagnosis: Varicose veins with inflammation of left leg Procedure: Endovenous radiofrequency ablation of the left small saphenous vein(s) of the lower extremity with Venclose Anesthesia: Local infiltration 5 cc, Tumescent 200 cc. Estimated Blood Loss: Minimal The patient was transferred to the procedure suite and the insufficient small saphenous vein was mapped by ultrasound and diagrammed on the overlying skin. The depth and diameter of the vein(s) to be treated was documented. The varicose tributary veins and suitable access sites were identified and mapped as well. The patient was then positioned prone on the procedure table. The affected limb was prepped and draped in the usual sterile fashion. The RF catheter was placed on the sterile field, flushed and wiped down, prepared, and connected by a sterile cable. The patient was placed in a prone position and local anesthesia was instilled in the skin overlying the access site. A skin incision was made overlying the identified and mapped small saphenous vein entry site. The vein was accessed using ultrasound guidance and the Seldinger technique, a guide wire was introduced through the needle, which was then exchanged over the guide wire for a 6F sheath, which was secured in place. The guide wire was removed and the sheath was flushed. The RF catheter was placed into the vein through the sheath and preferentially, imaging was used to place the catheter tip just inferior to the saphenopopliteal junction. Additionally, it was confirmed by ultrasound guidance that the catheter tip was also placed a minimum of 1.5cm distal to the saphenopopliteal junction. After the RF catheter position was verified by ultrasound, tumescent anesthesia was infiltrated, under ultrasound guidance, precisely into the perivenous comp artment along the entire length of vein from the entry site to the saphenofemoral junction until a halo of fluid was noted around the vein. The patient was appropriately position. After RF catheter position was again confirmed with ultrasound imaging, and under direct external compression along the length of the heating element, RF energy was applied. The vein was segmentally ablated by heating a 10 cm segment and then indexing the catheter forward by 9.5 cm until the treatment length is completed. Device temperature was maintained at 120 plus or minus 5 degrees C with an initial power level of 4W/cm dropping to below 2W/cm for each treatment. Total vein length treated 10 cm Total cycles of RF 2. Repeat ultrasound of the saphenous vein was performed, confirming successful treatment. The catheter and sheath were withdrawn and hemostasis established with direct pressure. After assuring hemostasis, the skin incision over the saphenous vein was closed with a bandage and a compression wrap was applied from the level of the foot to the most proximal level of the thigh. Discharge instructions were given to the patient inclusive of follow-up ultrasound and [place] with [address]493 - Endovenous RF, 1st Vein All charges added?: Procedure code (CPT) selection complete Assessment & Plan Assessment & Plan (1) Varicose veins of left lower extremity with inflammation: Comment: 03/29/2024 - left great saphenous vein Cyanoacralate ablation 06/21/2024 - left small saphenous vein radiofrequency ablation Code(s): I83.12 - Varicose veins of left lower extremity with inflammation Category: Medical Plan: See op note Coding Level of Care Code Procedure Only Diagnoses Varicose veins of left lower extremity with inflammation I83.12 CPT Codes Details - Vascular 1: 70399 - Endovenous RF, 1st Vein ([id number])
== END 2024-06-21 10:42 | disposition home or self-care (01) ==
PROVIDERS: PCP Nurse Practitioner Family; Visit Provider Surgery Vascular Surgery
DX: I83.12 Varicose veins of left lower extremity with inflammation (principal)
CPT/HCPCS: 36475

== ENCOUNTER → 2024-06-21 09:09 | Outpatient (BNVA) | payer MEDICARE, SELFPAY | PROVIDERS: PCP Nurse Practitioner Family; Visit Provider Surgery Vascular Surgery | DX: I83.12 Varicose veins of left lower extremity with inflammation (principal) | CPT/HCPCS: 36475 ==

== ENCOUNTER 2024-06-24 11:04 | Outpatient (REF) | payer MEDICARE, SELFPAY ==
--- NOTE | ~2024-06-24 | US_ITS ---
EXAMINATION: TRIPLEX SCANNING OF LEFT LOWER EXTREMITY; SUPERFICIAL ULTRASOUND WITH DOPPLER OF LEFT LOWER EXTREMITY CLINICAL INFORMATION: Status post radiofrequency ablation of the left small saphenous vein Ambulatory phlebectomy performed: No Originally performed on 06/21/2024. COMPARISON: preprocedure studies. TECHNIQUE: Color flow triplex imaging and compression Doppler were performed as well as superficial ultrasound with Doppler. FINDINGS: LEFT LOWER EXTREMITY DEEP VENOUS SYSTEM: Respiratory variation, normal compression and augmented flow are noted throughout the lower extremity. The visualized common femoral vein, femoral vein, profunda femoral vein, popliteal vein and the calf veins show no evidence of deep venous thrombosis. There is no evidence of [place]'s cyst. SUPERFICIAL VENOUS SYSTEM: The small saphenous vein is occluded from the access site to just before the saphenopopliteal junction. There is no extension of thrombus into the deep system. Enlarged lymph nodes seen in the left groin US/US venous duplex LE LT IMPRESSION: 1. No evidence of DVT. 2. Excellent appearance status post ablation of the left small saphenous vein. Electronically signed by: Mateo High MD 06/24/2024 04:35 PM EDT
== END 2024-06-24 11:05 | disposition home or self-care (01) ==
LOC: HO.US 11:04
PROVIDERS: PCP Nurse Practitioner Family; Visit Provider Surgery Vascular Surgery
DX: M79.605 Pain in left leg (principal)
CPT/HCPCS: 93971

== ENCOUNTER 2024-07-03 18:03 | Outpatient (REF) | payer MEDICARE, SELFPAY ==
[2024-07-06 10:08] LABS: HPV mRNA E6/E7 Not Detected (Not Detected)
== END 2024-07-03 18:04 | disposition home or self-care (01) ==
LOC: HO.HHCLNP 18:03
PROVIDERS: Visit Provider Advanced Practice Midwife
DX: Z12.4 Encounter for screening for malignant neoplasm of cervix (principal)
CPT/HCPCS: 36415; 87624; 88175

== ENCOUNTER 2024-07-18 12:53 | Outpatient (AMB) | payer MEDICARE, SELFPAY ==
[2024-07-18 12:58] VITALS: BMI 20.7
--- NOTE | 2024-07-18 12:58 | MHC.OFFVIS ---
Vital Signs 07/18/24 12:58 Height 5 ft 7 in Weight 132 lb BMI 20.7 Intake Visit Reasons: 2 week follow up RFA 06/21/24 Intake Note: follow up Left SSV RFA 06/21/24. Pt states that sometimes she gets a sharp pain in the treated area of her calf. Hx of Left GSV Venaseal 03/29/24 and Left Micro. Accompanied by: Self / Same As Patient Allergies DEVORAH Inhibitors Allergy (Severe, Verified 07/18/24 13:03) congestion lisinopril [LISINOPRIL] Allergy (Severe, Verified 07/18/24 13:03) SEVERE CONGESTION tetracycline [TETRACYCLINE] Allergy (Intermediate, Verified 07/18/24 13:03) LETHARGIC, drowsiness pollen Allergy (Intermediate, Uncoded 07/18/24 13:03) runny nose HPI HPI 2 week follow up RFA 06/21/24: Details: Very pleasant 74-year-old female presents for follow-up status post left small saphenous vein ablation. Appears to be doing relatively well postprocedure. She does have some varicosities which have been a source of pain and discomfort for her. Does note that the overall swelling has decreased. [facility] Medical History Chronic back pain Lumbar disc herniation Spondylolisthesis, lumbar region Diverticulosis Colon cancer screening DVT (deep venous thrombosis) Hx of opioid abuse Trochanteric bursitis of right hip Lumbar spondylosis Chronic right hip pain Nondependent tobacco use disorder Unspecified pruritic disorder Mild nonproliferative diabetic retinopathy Allergic rhinitis HTN (hypertension) Hepatitis C Diabetes Surgical History H/O colonoscopy Family History Mother Enlarged heart Father No problems noted. Social History (Updated 07/18/24 @ 13:04 by SAUL Diego) Patient Tobacco Use Status: Former Tobacco user Tobacco use type: Cigarette Cigarettes Per Day: 2 Current occupational status: retired Current occupation: rt hand Review of Systems Const Reports as per HPI ENT Reports no additional complaints Card Denies chest pain, Denies chest pain at rest and Denies chest pain with activity Resp Denies chest congestion and Denies cough GI Reports no additional complaints Musc Details: pain over varicosities, aching of lower extremities, swelling, cramping, heaviness and tiredness, itching Denies abnormal gait Skin/Breast Reports pruritus and Denies wounds Neuro Reports no additional complaints and Denies abnormal gait Psych Denies no additional complaints Physical Exam Vital Signs: BMI result Body Mass Index 20.7 Const General: cooperative, healthy appearing and comfortable Orientation/consciousness: oriented to person, oriented to place and oriented to time Neck Carotids: no bruits Chest Chest palpation & inspection: normal inspection of the chest and normal palpation of entire chest wall Resp Effort & Inspection: normal respiratory effort and able to speak in complete sentences Cardio Rate: regular rate Heart sounds: S1 normal heart sound present and S2 normal heart sound present Peripheral pulses: Peripheral pulses 2+ throughout GI Inspection: Yes normal to inspection Skin Other: +2 edema, large rope-like varicosities greater than 4 mm left posterior calf and thigh CEAP Classification C4 - skin color changes Ep - Etiology Primary As - superficial veins P - reflux General skin exam: dry skin Neuro General: oriented to person, oriented to place and oriented to time Extrem Right lower extremity: full ROM, normal capillary refill and edema Left lower extremity: full ROM, normal capillary refill and edema Psych Mental Status: mental status grossly normal Assessment & Plan Assessment & Plan (1) Varicose veins of left lower extremity with inflammation: Comment: 03/29/2024 - left great saphenous vein Cyanoacralate ablation 06/21/2024 - left small saphenous vein radiofrequency ablation Code(s): I83.12 - Varicose veins of left lower extremity with inflammation Category: Medical Plan: This patient has varicose veins with inflammation. They continue to be a source of discomfort for the patient. The patient has tried conservative treatment with compression, leg elevation and exercise program for over 3 months time. They have been compliant with all treatment. This has provided minimal relief for the patient. I do not anticipate this course of treatment will alter the underlying etiology. The patient has been scheduled for lower extremity venous treatment inclusive of --- left leg microphlebectomy. Risks, benefits, and complications of this procedure has been discussed in detail with the patient including but not limited to bleeding, infection, and the development of a DVT. The patient has demonstrated a clear understanding and has consented. We will schedule the patient as soon as possible. Thank you for allowing us to participate in this patient's care. If there are any questions or concerns please do not hesitate to contact us. Coding Level of Care Code Est Pt Level 3 (93434) Diagnoses Varicose veins of left lower extremity with inflammation I83.12
== END 2024-07-18 13:27 | disposition home or self-care (01) ==
PROVIDERS: PCP Nurse Practitioner Family; Visit Provider Surgery Vascular Surgery
DX: I83.12 Varicose veins of left lower extremity with inflammation (principal)
CPT/HCPCS: 99213

== ENCOUNTER → 2024-07-18 12:53 | Outpatient (BNVA) | payer MEDICARE, SELFPAY | PROVIDERS: PCP Nurse Practitioner Family; Visit Provider Surgery Vascular Surgery | DX: I83.12 Varicose veins of left lower extremity with inflammation (principal); I83.812 Varicose veins of left lower extremity with pain | CPT/HCPCS: 99212 ==

== ENCOUNTER 2024-07-30 16:04 | Outpatient (REF) | payer MEDICARE, SELFPAY ==
[2024-07-31 08:43] LABS: Syphilis Screen Nonreactive (Nonreactive)
== END 2024-07-30 16:05 | disposition home or self-care (01) ==
LOC: HO.HHCL 16:04
PROVIDERS: Visit Provider Advanced Practice Midwife
DX: N90.89 Other specified noninflammatory disorders of vulva and perineum (principal)
CPT/HCPCS: 36415; 86780

== ENCOUNTER → 2024-07-31 08:43 | Outpatient (REF) | payer MEDICARE, SELFPAY | LOC: HO.SL 08:43 | PROVIDERS: PCP Nurse Practitioner Family; Visit Provider Internal Medicine Geriatric Medicine | DX: G47.10 Hypersomnia, unspecified (principal) | CPT/HCPCS: 95806 ==

== ENCOUNTER 2024-08-09 12:43 | Outpatient (AMB) | payer MEDICARE, SELFPAY ==
--- NOTE | 2024-08-09 12:45 | MHC.OFFVIS ---
Intake Visit Reasons: Left Micro Accompanied by: Self / Same As Patient Allergies DEVORAH Inhibitors Allergy (Severe, Verified 08/09/24 12:45) congestion lisinopril [LISINOPRIL] Allergy (Severe, Verified 08/09/24 12:45) SEVERE CONGESTION tetracycline [TETRACYCLINE] Allergy (Intermediate, Verified 08/09/24 12:45) LETHARGIC, drowsiness pollen Allergy (Intermediate, Uncoded 07/18/24 13:03) runny nose PFSH Medical History Chronic back pain Lumbar disc herniation Spondylolisthesis, lumbar region Diverticulosis Colon cancer screening DVT (deep venous thrombosis) Hx of opioid abuse Trochanteric bursitis of right hip Lumbar spondylosis Chronic right hip pain Nondependent tobacco use disorder Unspecified pruritic disorder Mild nonproliferative diabetic retinopathy Allergic rhinitis HTN (hypertension) Hepatitis C Diabetes Surgical History H/O colonoscopy Family History Mother Enlarged heart Father No problems noted. Social History (Updated 07/18/24 @ 13:04 by SAUL Diego) Patient Tobacco Use Status: Former Tobacco user Tobacco use type: Cigarette Cigarettes Per Day: 2 Current occupational status: retired Current occupation: rt hand Office Procedures Vascular Office Procedure Details Details: Diagnosis: Left Leg varicose veins with inflammation Procedure: Left leg Microphlebectomy Anesthesia: Local Infiltration 10 cc, Tumescent: 0 cc. Varicose veins were marked in the standing position on the left leg and the patient was then placed in the prone position. The left lower extremity was prepared and draped to allow knee flexion in the sterile field. The patient had large superficial varicose veins with significant symptoms of pain. It was therefore determined to perform microphlebectomies of the clusters of varicose veins. The patient had bulging varicose veins which were previously marked in the standing position. A small stab incision was made longitudinally directly overlying the varicose vein in the calf and the varicose vein was grasped with a hemostat aided by a vein hook. It was then dissected as far proximally and distally as possible and avulsed. A total of 11 stab incisions were made and the procedure of stab phlebectomies was repeated 11 times. Hemostasis was checked and stab incision sites were closed with steri-strips and sterile dressing was given with gauze and krilex wrap followed by an devorah bandage. There were no complications and blood loss was minimal. Post-Op instructions were given and a follow-up appointment was recommended. [id number] - Phleb Veins, Extrem - up to 20 All charges added?: Procedure code (CPT) selection complete Assessment & Plan Assessment & Plan (1) Varicose veins of left lower extremity with inflammation: Comment: 03/29/2024 - left great saphenous vein Cyanoacralate ablation 06/21/2024 - left small saphenous vein radiofrequency ablation 08/09/2024 - left leg microphlebectomy Code(s): I83.12 - Varicose veins of left lower extremity with inflammation Category: Medical Plan: See op note Coding Level of Care Code Procedure Only Diagnoses Varicose veins of left lower extremity with inflammation I83.12 CPT Codes Details - Vascular 5: 32370 - Phleb Veins, Extrem - up to 20 ([id number])
== END 2024-08-09 14:21 | disposition home or self-care (01) ==
PROVIDERS: PCP Nurse Practitioner Family; Visit Provider Surgery Vascular Surgery
DX: I83.12 Varicose veins of left lower extremity with inflammation (principal)
CPT/HCPCS: 37765

== ENCOUNTER → 2024-08-09 12:43 | Outpatient (BNVA) | payer MEDICARE, SELFPAY | PROVIDERS: PCP Nurse Practitioner Family; Visit Provider Surgery Vascular Surgery | DX: I83.12 Varicose veins of left lower extremity with inflammation (principal) | CPT/HCPCS: 37765 ==

== ENCOUNTER 2024-08-22 14:45 | Outpatient (AMB) | payer MEDICARE, SELFPAY ==
[2024-08-22 15:03] VITALS: BMI 20.7
--- NOTE | 2024-08-22 15:03 | MHC.OFFVIS ---
Vital Signs 08/22/24 15:03 Height 5 ft 7 in Weight 132 lb BMI 20.7 Intake Visit Reasons: 2 week follow up Left Micro 08/09/24 Intake Note: 2 week follow up Left Micro 08/09/24 & hx of Left SSV RFA 06/21/24 & Left GSV Venaseal 03/29/24 and a previous Left Micro. Pt states she still has some painful VV on her posterior thigh. Accompanied by: Self / Same As Patient Allergies DEVORAH Inhibitors Allergy (Severe, Verified 08/22/24 15:07) congestion lisinopril [LISINOPRIL] Allergy (Severe, Verified 08/22/24 15:07) SEVERE CONGESTION tetracycline [TETRACYCLINE] Allergy (Intermediate, Verified 08/22/24 15:07) LETHARGIC, drowsiness Horse/Equine Containing Products Adverse Reaction (Unknown, Verified 08/22/24 15:07) Unknown pollen Allergy (Intermediate, Uncoded 08/22/24 15:07) runny nose HPI HPI 2 week follow up Left Micro 08/09/24: Details: Very pleasant 74-year-old female presents for routine follow-up status post left leg microphlebectomy. She has had no postprocedure issues. She does note a little bit of mild phlebitis in the posterior aspect of her thigh but overall no postprocedure issues. All her Steri-Strips have fallen off accept 1. She now presents for routine postprocedure follow-up [facility] Medical History Chronic back pain Lumbar disc herniation Spondylolisthesis, lumbar region Diverticulosis Colon cancer screening DVT (deep venous thrombosis) Hx of opioid abuse Trochanteric bursitis of right hip Lumbar spondylosis Chronic right hip pain Nondependent tobacco use disorder Unspecified pruritic disorder Mild nonproliferative diabetic retinopathy Allergic rhinitis HTN (hypertension) Hepatitis C Diabetes Surgical History (Updated 08/22/24 @ 15:08 by SAUL Diego) Hx of vein stripping (08/09/24) H/O colonoscopy Family History Mother Enlarged heart Father No problems noted. Social History Patient Tobacco Use Status: Former Tobacco user Tobacco use type: Cigarette Cigarettes Per Day: 2 Current occupational status: retired Current occupation: rt hand Review of Systems Const All systems reviewed & are unremarkable except as noted in HPI and below Reports no additional complaints ENT Reports Normal hearing present Card Denies chest pain, Denies chest pain at rest, Denies chest pain with activity and Denies pedal edema Resp Denies cough GI Denies abdominal pain Musc Denies abnormal gait, Denies muscle cramps and Denies radiating pain into limb Skin/Breast Denies skin ulcer and Denies wounds Neuro Reports Normal hearing present and Denies abnormal gait Psych Reports no additional complaints Physical Exam Vital Signs: BMI result Body Mass Index 20.7 Const General: cooperative, healthy appearing and comfortable Orientation/consciousness: oriented to person, oriented to place and oriented to time HEENT Head: Yes normal to inspection Neck Neck: Yes normal visual inspection Carotids: no bruits Chest Chest palpation & inspection: normal inspection of the chest Resp Effort & Inspection: normal respiratory effort and able to speak in complete sentences Auscultation: clear to auscultation bilaterally, no crackles, no rales, no rhonchi and no wheezes Cardio Rate: regular rate Rhythm: regular rhythm Heart sounds: S1 normal heart sound present and S2 normal heart sound present Bruits: no carotid bruits Peripheral pulses: Peripheral pulses 2+ throughout GI Inspection: Yes normal to inspection Skin Wounds: no wounds Hair: normal Neuro General: oriented to person, oriented to place and oriented to time Cranial nerves: Yes CN's II-XII intact bilaterally and Yes Normal hearing present Cognition (Neuro): normal cognition Motor exam (neuro): 5/5 motor strength present throughout Extrem Other: venous exam: No significant superficial varicosities or spider telangiectasias, minimal edema General: No clubbing, No cyanosis and No edema Psych Appearance: grossly normal Mental Status: mental status grossly normal Speech and movement: Normal speech and movement present Assessment & Plan Assessment & Plan (1) Varicose veins of left lower extremity with inflammation: Comment: 03/29/2024 - left great saphenous vein Cyanoacralate ablation 06/21/2024 - left small saphenous vein radiofrequency ablation 08/09/2024 - left leg microphlebectomy Code(s): I83.12 - Varicose veins of left lower extremity with inflammation Category: Medical Plan: In short patient has done well with her venous treatments. She does have some mild postprocedure phlebitis which can be easily treated with warm compresses and nonsteroidal anti-inflammatories. We did discuss routine conservative measures including compression, elevation, exercise. She will follow up with us in approximately 6 months time to ensure that her residual varicosities in the left posterior thigh and right anterior tibial surface have resolved. Thank you for allowing us to assist in the care of this very nice woman. If there are any questions or concerns please do not hesitate to contact us Coding Level of Care Code Est Pt Level 3 (26258) Diagnoses Varicose veins of left lower extremity with inflammation I83.12
== END 2024-08-22 15:44 | disposition home or self-care (01) ==
LOC: HO.HVS 14:46
PROVIDERS: PCP Nurse Practitioner Family; Visit Provider Surgery Vascular Surgery
DX: I83.12 Varicose veins of left lower extremity with inflammation (principal)
CPT/HCPCS: 99213

== ENCOUNTER → 2024-08-22 14:45 | Outpatient (BNVA) | payer MEDICARE, SELFPAY | PROVIDERS: PCP Nurse Practitioner Family; Visit Provider Surgery Vascular Surgery | DX: I83.12 Varicose veins of left lower extremity with inflammation (principal) | CPT/HCPCS: 99212 ==

== ENCOUNTER 2024-09-27 15:30 | Outpatient (REF) | payer MEDICARE, SELFPAY ==
[2024-09-27 17:05] LABS: Alanine Aminotransferase 16 U/L (0-31); Albumin Level 4.1 g/dL (3.5-5.0); Alkaline Phosphatase 107 U/L (39-117); Anion Gap 13 (12-20); Aspartate Amino Transferase 21 U/L (5-31); Bilirubin Total 0.4 mg/dL (0.0-1.0); Blood Urea Nitrogen 16 mg/dL (9-16); Calcium 9.1 mg/dL (8.4-10.2); Carbon Dioxide 29 mmol/L (22-29); Chloride 103 mmol/L (96-108); Estimated Glomerular Filt Rate > 60; Glucose Random 239 mg/dL (60-115); Potassium 3.9 mmol/L (3.3-5.1); Sodium 141 mmol/L (135-145); Total Protein 7.5 g/dL (6.5-8.0)
== END 2024-09-27 15:31 | disposition home or self-care (01) ==
LOC: HO.HHCL 15:30
PROVIDERS: Visit Provider Internal Medicine Geriatric Medicine
DX: E11.9 Type 2 diabetes mellitus without complications (principal); Z79.4 Long term (current) use of insulin
CPT/HCPCS: 36415; 80053

== ENCOUNTER 2024-12-24 09:01 | Outpatient (REF) | payer MEDICARE, SELFPAY ==
--- OUTSIDE RECORDS SUMMARY | 2024-12-24 09:58 | XMS_ITS | Clinical Summary ---
Author Organization [facility] ity Address [address] [place] [address] Care Team Providers Care Farm Equipment Mechanic Apprentice Name Role Phone Unavailable Primary Care Provider Unavailabl e Social History Tobacco Use Types Packs/Day Years Used Date Smoking Tobacco: Never Assessed Comments Unknown Sex and Gender Information Value Date Recorded Sex Assigned at Not on file Legal Sex Female 9:38 AM EST Gender Identity Not on file Sexual Orientation Not on file Plan of Treatment Health Maintenance Due Date Last Done Comments Breast Cancer Screening 1950 DTaP,Tdap,and Td Vaccines (1 - Tdap) 1969 Pneumococcal Vaccine: 50+ Ye ars (1 of 1 - PCV) 2000 Zoster Vaccines (1 of 2) 2000 Colorectal Cancer Screening: Colonoscopy 09/18/2022 Depression Screening 09/18/2022 Falls Risk Assessment 09/18/2022 Hepatitis C Screening 09/18/2022 Osteoporosis Screening (Bone Density Screening) 09/18/2022 Social Influencers of Health Screening 09/18/2022 COVID-19 Vaccine ( - 2023-2 5 season) 2024 Influenza Vaccine (#1) 2024 RSV Immunization Patients 60 + Years Old (1 - 1-dose 75+ series) 2025 HIB Vaccines Aged Out No longer eligi ble based on patient's age to complete this topic HPV Vaccines Aged Out No longer eligi ble based on patient's age to complete this topic Hepatitis A Vaccines Aged Out No long er eligible based on patient's age to complete this topic Hepatitis B Vaccines Aged Out No long er eligible based on patient's age to complete this topic IPV Vaccines Aged Out No longer eligi ble based on patient's age to complete this topic MMR Vaccines Aged Out No longer eligi ble based on patient's age to complete this topic Meningococcal ACWY Vaccine Aged Out N o longer eligible based on patient's age to complete this topic Meningococcal B Vacine Aged Out No lo nger eligible based on patient's age to complete this topic RSV Immunization Patients Un jordan 20 months Aged Out No longer eligible b ased on patient's age to complete this topic Varicella Vaccines Aged Out No longer eligible based on patient's age to complete this topic
--- OUTSIDE RECORDS SUMMARY | 2024-12-24 09:58 | XMS_ITS | Encounter Summary ---
Author Organization [employer] Address [address] [facility] [address] [place] [address] Care Team Providers Care Clerical Administrator Name Role Phone Arianna Wellington Primary Care Provider [phone] Francoise Dial PharmD Unavailable [phone] Name, Jules GABRIEL Primary Care Provider [phone] Reason for Visit * Reason Onset Date Comments medical clearance 01/30/2024 Encounter Details Date Type Department Care Team (Late st Contact Info) Description 01/30/2024 Telephone [facility] MED[facility]INE [address], [place] [id number] Arianna Wellington FNP [address] [place] [address] medical clearance Social History Tobacco Use Types Packs/Day Years Used Date Smoking Tobacco: Every Day Cigarettes 0.5 55 Smokeless Tobacco: Never Comments:Current smokin pack lasts ~1 week Alcohol Use Standard Drinks/Week Comments Never 0 (1 standard drink = 0.6 oz pur e alcohol) Depression Answer Date Recorded Patient Health Questionnaire-9 Score 24 06/23/2023 Housing Stability Answer Date Recorded What is your housing situation today? I have larisa moore 08/02/[address] you li ve. Do you have problems with any of the following? None of the above 08/02/2023 Food Insecurity Answer Date Recorded Within the past 12 months, y ou worried that your food would run out before you got money to buy more: Never True 08/02/2023 Within the past 12 months,th e food you bought just didn't last and you didn't have enough money to get more: Never True Transportation Answer Date Recorded In the past 12 months, has l ack of transportation kept you from medical appts, meetings, work or from getting things needed for daily living? No 08/02/2023 Utilities Answer Date Recorded In the past 12 months, has t he electric, gas, oil or water company threatened to shut off services in your home? No 08/02/2023 Depression Answer Date Recorded Patient Health Questionnaire-2 Score 0 09/01/2023 Comments Unknown Sex and Gender Information Value Date Recorded Sex Assigned at Female 08/15/2022 10:20 AM EDT Legal Sex Female 10:20 AM EDT Gender Identity Female 08/15/2022 10:20 AM EDT Sexual Orientation Straight 08/15/2022 10 :20 AM EDT documented as of this encounter Miscellaneous Notes * Telephone Encounter - Fiordaliza Thomson - 01/30/2024 3:29 PM EDT Tc from [place] with [facility] [place] requesting medical clearance to stop aspirin (Aspirin AdultLow Strength) 81 MG EC tablet 7 days prior to procedure scheduled on 02/12. Please contact marina at [phone] documented in this encounter Plan of Treatment Upcoming Encounters Date Type Department Care Team (Late st Contact Info) Description 01/03/2025 9:15 AM EDT Office Visit [facility] [address] [place] [address] Name, MD Jules [address] [place] [address] 05/14/2025 11:00 AM EDT Office Visit [facility] [address] [place] [address] Allyson Epps OD [address] [place] [address] documented as of this encounter Goals Goal Patient Goal Type Associated Problems Recent Progress Patient-Stated? Author Blood Pressure < 140/90 Blood Pressure 140/76(2024 11:11 AM EST) No Colt Garza Hemoglobin A1c < 7.5 Result Component 9(09/18/2024 9:19 AM EST) No Colt Garza Note: Modified based on patient age, treatment options available, risk of hypoBG given she lives alone, etc. documented as of this encounter Visit Diagnoses Not on filedocumented in this encounter Additional Health Concerns Assessment Noted Time PHQ-9 Depression Total Score: 24 023 9:07 AM EDT documented as of this encounter Care Teams Clerical Administrator Relationship Specialty Start Date End Date Arianna Wellington FNP [address] [place] [address] PCP - General Family Medicine 03/20/23 06/17/24 Name, MD Jules [address] [place] [address] PCP - General Internal Medicine 06/18/24 Francoise Dial PharmD [address] [place] [address] Pharmacist Internal Medicine 05/21/24 documented as of this encounter
--- OUTSIDE RECORDS SUMMARY | 2024-12-24 09:58 | XMS_ITS | Encounter Summary ---
Author Organization [employer] Address [address] [facility] [address] [place] [address] Care Team Providers Care Chicken Hanger Name Role Phone Arianna Wellington Primary Care Provider [phone] Francoise Dial PharmD Unavailable [phone] Name, Jules GABRIEL Primary Care Provider [phone] Encounter Details Date Type Department Care Team (Late st Contact Info) Description 08/25/2023 Orders Only [facility] [address] [place] [address] Arianan Wellington FNP [address] [place] [address] Social History Tobacco Use Types Packs/Day Years Used Date Smoking Tobacco: Every Day Cigarettes 0.5 55 Smokeless Tobacco: Never Alcohol Use Standard Drinks/Week Comments Never 0 [...] Answer Date Recorded Patient Health Questionnaire-2 Score 6 06/23/2023 Comments Unknown Sex and Gender Information Value Date Recorded Sex Assigned at Female 08/15/2022 10:20 AM EDT Legal Sex Female 10:20 AM EDT Gender Identity Female 08/15/2022 10:20 AM EDT Sexual Orientation Straight 08/15/2022 10 :20 AM EDT documented as of this encounter Plan of Treatment Upcoming Encounters Date Type Department Care Team (Late st Contact Info) Description 01/03/2025 9:15 AM EDT Office Visit [facility] [address] [place] [address] Name, MD Jules [address] [place] [address] 05/14/2025 11:00 AM EDT Office Visit [facility] OPT[facility] [address] [place] [address] [place], Allyson, OD [address] [place] [address] documented as of this encounter Goals Goal [...] documented as of this encounter Care Teams Chicken Hanger Relationship Specialty Start Date End Date Arianna Wellington FNP [address] [place] [id number] PCP - General Family Medicine 03/20/23 06/17/24 Jules Landis MD [address] [place] [address] PCP - General Internal Medicine 06/18/24 Francoise Dial PharmD [address] [place] [address] Pharmacist Internal Medicine 05/21/24 documented as of this encounter
--- OUTSIDE RECORDS SUMMARY | 2024-12-24 09:59 | XMS_ITS | Encounter Summary ---
Author Organization [employer] Address [address] [facility] [address] [place] [address] Care Team Providers Care Floor Care Technician Name Role Phone Arianna Wellington Primary Care Provider [phone] Francoise Dial PharmD Unavailable [phone] NameJules MD Primary Care Provider [phone] Reason for Visit * Reason Comments Med Refill Encounter Details Date Type Department Care Team (Late st Contact Info) Description 10/14/2023 Refill [facility] [address] [place], [place] [phone] Arianna Wellington FNP [address] [place] [address] Current mild episode of major depressive disorder, unspecified whether recurrent (CMS/HCC) Social History Tobacco Use Types Packs/Day Years [...] Description 01/03/2025 9:15 AM EDT Office Visit [facility] [address] [place] [address] Name, MD Jules [address] [place] [address] 05/14/2025 11:00 AM EDT Office Visit [facility] OPT[facility] [address] [place] [address] Allyson Epps, OD [address] [place] [address] documented as of this encounter Goals Goal [...] documented as of this encounter Visit Diagnoses Diagnosis Current mild episode of major depressive disorder, unspecified whether recurrent (CMS/HCC) documented in this encounter Additional Health Concerns Assessment Noted Time PHQ-9 Depression Total Score: 24 06/23/ 023 9:07 AM EDT documented as of this encounter Care Teams Floor Care Technician Relationship Specialty Start Date End Date Arianna Wellington FNP [address] [place] [address] PCP - General Family Medicine 03/20/23 06/17/24 Name, MD Jules [address] [place] [address] PCP - General Internal Medicine 06/18/24 Francoise Dial PharmD [address] [place] [address] Pharmacist Internal Medicine 05/21/24 documented as of this encounter
--- OUTSIDE RECORDS SUMMARY | 2024-12-24 09:59 | XMS_ITS | Clinical Summary ---
Author Organization [employer] Address [address] [place] [address] Care Team Providers Care Peg Driver Name Role Phone Francoise Dial PharmD Unavailable [phone] Name, Jules GABRIEL Primary Care Provider [phone] Allergies Active Allergy Reactions Criticality Noted Date Comments Harsha Inhibitors Nausea Only High 10/04/2010 Other reaction(s): congestion, SEVERE CONGESTION Gramineae Pollens Runny nose High 12/15/2022 Tetracycline High 04/19/2012 Other reaction(s): drowsiness, LETHARGIC, drowsiness Medications * This document contains information received from the source organization and may not represent a complete record from that organization. Buprenorphine HCl-Naloxone HCl (Suboxone) 8-[address] 1 Film under the tongue in the morning. 3 Active Blood Glucose Monitoring Suppl (Physicians Own PharmacyTouch Verio Flex System) w/Device kit USE DIRECTED TO TEST BLOOD SUGAR FOUR TIMES DAILY 3 Active Lancets (OneTouch Delica Plus [id number]) miscIndications :Type 2 diabetes mellitus without complication, unspecified whether jail insulin use (CMS/[facility]) USE DIRECTED TO TEST BLOOD SUGAR FOUR TIMES DAILY 100 each 4 Active Continuous Blood Gluc Sensor (FreeStyle Elizabeth 2 Sensor) miscIndications :Type 2 diabetes mellitus with other specified complication, unspecified whether terminologist insulin use (CMS/HCC) Use as directed to monitor glucose ever 8 hours. Replace sensor every 14 days. 2 each 4 Active glucose blood (FreeStyle Precision Miguelito Test) test stripIndication s:Type 2 diabetes mellitus with other specified complication, unspecified whether terminologist insulin use ([facility]) Test blood sugar q 8 hours 100 each 12 4 Active Blood Pressure Monitor kitIndications: Elevated blood pressure reading 1 kit 2 times daily. 1 kit 4 Active docusate sodium (Colace) 100 MG capsule Take 1 tab po bid prn constipation 60 capsule 3 4 Active Continuous Blood Gluc Senior Construction Manager (FreeStyle Elizabeth 2 Plummer) device USE DIRECTED TO TEST BLOOD SUGAR EVERY 8 HOURS 4 Active Alcohol Swabs (Alcohol Prep) 70 % padsIndications :Type 2 diabetes mellitus without complication, unspecified whether terminologist insulin use ([facility]) USE DIRECTED TO TEST BLOOD SUGAR FOUR TIMES DAILY 100 each 11 4 Active amLODIPine (Norvasc) 5 MG tablet Take 5 mg by mouth Once per day. 4 Active hydrocortisone (Anusol-HC) 2.5 % rectal cream Insert into the rectum 2 times daily. 28 g 2 4 Active mometasone (Elocon) 0.1 % ointment Apply topically Once per day. 45 g 2 4 025 Active FT Nicotine 2 MG lozenge DISSOLVE 1 LOZENGE EVERY 3 TO 4 HOURS NEEDED 4 Active Reguloid 57.6 % powder 4 Active celecoxib (CeleBREX) 200 MG capsule TAKE 1 CAPSULE BY MOUTH TWICE DAILY 180 capsule 3 4 Active empagliflozin (Jardiance) 25 MG Take 1 tablet (25 mg) by mouth Once per day. 30 tablet 5 4 Active insulin glargine (Lantus SoloStar) 100 UNIT/ML pen Inject 5 Units under the skin at bedtime. 15 mL 1 4 Active metFORMIN XR (Glucophage-XR) 500 MG 24 hr tabletIndicatio ns:Type 2 diabetes mellitus with other specified complication, unspecified whether terminologist insulin use ([facility]) TAKE 2 TABLETS BY MOUTH TWICE DAILY IN THE MORNING AND EVENING 360 tablet 1 4 Active Dulaglutide (Trulicity) 1.5 MG/0.5ML solution auto-injector Inject 0.5 mL (1.5 mg) under the skin 1 (one) time per week. 2 mL 11 4 Active hydroCHLOROthia zide (HYDRODiuril) 50 MG tablet TAKE 1 TABLET BY MOUTH EVERY MORNING 90 tablet 1 4 Active losartan (Cozaar) 100 MG tablet TAKE 1 TABLET BY MOUTH EVERY MORNING 90 tablet 1 4 Active aspirin (Aspirin Low Dose) 81 MG EC tablet TAKE 1 TABLET BY MOUTH EVERY MORNING 90 tablet 1 4 Active atorvastatin (Lipitor) 40 MG tablet TAKE 1 TABLET BY MOUTH EVERY MORNING 90 tablet 1 4 Active Pentips Generic Pen [place] 32G X 4 MM miscIndications :Type 2 diabetes mellitus without complication, with long-term current use of insulin ([facility]) USE DIRECTED 100 each 11 5 Active cetirizine (ZyrTEC) 10 MG tabletIndicatio ns:Seasonal allergies TAKE 1 TABLET BY MOUTH EVERY MORNING 90 tablet 1 5 Active imiquimod (Aldara) 5 % creamIndication s:Genital warts Apply 1 packet topically 3 (three) times a week for 48 doses. 12 packet 3 5 025 Active ammonium lactate (Amlactin) 12 % cream Apply topically if needed for dry skin. 385 g 1 4 025 Active Problems Problem Noted Date Diagnosed Date Moderately severe depression 02/14/2024 Assessment & Plan (02/14/2024 11:53 AM EDT): PROGRESS NOTE: ID: Eva is a 73 y.o. Black or straight-identified cis-female with previous documented hx of Opioid Use Disorder No previous hx of MH dx or sx who presents for Depression. Eva lives alone with her pet cat Emerald, used to do foster care but stop 7 months ago. During IBH Consult Eva presenting with depressed mood, loss of interests/pleasure , changes in sleep sleeping too much, change in appetite or weight overeating, trouble concentrating, thoughts of worthlessness or guilt, fatigue/loss of energy, excessive worry/anxiety, difficulty controlling worry, easily fatigued, difficulty concentrating/Mind going blank , muscle tension, and sleep disturbance sleeping too much, and Currently in MAT at [facility], denies cravings has been able to maintain her sobriety for over 10 years, thinking about taper down suboxone in order to stop taking it, in regard to Opioids; for a period of 6-12 mo, for all symptoms in the context of 7 months ago she stop fostering children, feeling alone, lack of social support and isolating. PLAN: New/Additional Services needed PCP management Off-site services for Behavioral Health Integration Plan Internal Follow up with [facility] External OP therapy referral and OP psychiatry Referral Patient Self Plan Patient to utilize skills provided in intervention , Patient to reach out to [facility] team as needed, Comply with medication , Patient to engage in OP therapy , and Patient to reach out to [facility] as needed Colon cancer screening 06/13/2023 DVT (deep venous thrombosis) 06/13/2023 Myofascial pain 06/13/2023 Sacroiliac joint pain 06/13/2023 Varicose veins of left lower extremity with infl ammation 06/13/2023 History of opioid abuse 06/08/2021 Hip pain 10/24/2018 Lumbar spondylosis 10/24/2018 Hepatitis C 01/30/2014 Overview (09/18/2024): Treated in the past at [facility], genotype 1A. Cannot find details of treatment VL negaive 2021. Had Hep A and B vaccines in the past Hypertension 04/06/2012 Tobacco dependence syndrome 04/06/2012 Mild nonproliferative diabetic retinopathy 12/18 Allergic rhinitis 03/07/2011 Diabetes mellitus type 2, uncomplicated 03/07/20 08 Encounters Date Type Department Care Team Description 11/15/2024 11:00 AM EST Office Visit [facility] MEDICINE [address] [place] [address] Louis Fernandez MD Genital warts (Primary Dx) 11/15/2024 Travel 11/13/2024 11:00 AM EST Office Visit [facility] OPTOMETRY [address] [place], [place] [phone] Mich, Allyson, OD Diabetes type 2, no ocular involvement (CMS/HCC) (Primary Dx); Epiretinal membrane (ERM) of right eye; Meibomian gland disease, unspecified laterality; Mixed type age-related cataract, both eyes; Presbyopia 11/13/2024 Travel 11/12/2024 Refill [facility] CHC MED & PEDS [address] [place], [place] [phone] Arianna Wellington FNP Seasonal allergies 11/10/2024 Refill [facility] [address] [place], [place] [phone] Arianna Wellington, ANTHONY Type 2 diabetes mellitus without complication, with long-term current use of insulin ([facility]) 10/18/2024 Telephone [facility] MEDICINE [address] [place] [address] Troy Murphy PA feb recalls 10/02/2024 Telephone [facility] MEDICINE [address], [place] [phone] Jules Landis MD 10/01/2024 Refill [facility] MEDICINE [address], [place] [phone] Arianna Wellington FNP from Last 3 Months Immunizations Name Administration Dates Next Due Hep A, Adult 08/24/2023,11/11/2013 Hep B, adult 07/21/2023,12/25/2013,11/11/2013 Influenza High-dose Quadriva lent Preservative Free 07/21/2023,06/24/2022,08/16/2021,07/07 Influenza injectable quadriv alent IIV4 with preservative 08/11/2016,07/29/2015 Influenza injectable quadriv alent preservative free 10/24/2018,07/17/2017 Influenza, High Dose Seasona l, Preservative Free 07/03/2024 Influenza, IIV3, injectable 08/20/2008 Influenza, Split (incl. zak fied surface antigen) 09/19/2013,08/30/2012 Pfizer Covid-19 Vaccine 12+ 11/29/2023 Pneumococcal Conjugate PCV 13 07/29/2015 Pneumococcal Conjugate PCV 20 06/23/2023 Pneumococcal Polysaccharide PPSV23 08/16/2021,,08/23/2008 RSV Bivalent 01/01/2024 Tdap 01/01/2024,09/19/2013 Zoster, Recombinant 07/15/2022,05/13/2022 Zoster, live 05/05/2017 Family History Medical History Relation Name Comments Alcohol abuse Mother Pancreatic cancer Mother Stroke Mother's Sister Diabetes type II Son Relation Name Status Comments Mother Mother's Sister Son Social History Tobacco Use Types Packs/Day Years Used Date Smoking Tobacco: Former Smokeless Tobacco: Never Tobacco Cessation:Counseling Given: Not Answered Comments:Current smokin pack lasts ~1 week Alcohol Use Standard Drinks/Week Comments Never 0 (1 standard drink = 0.6 oz pur e alcohol) Depression Answer Date Recorded Patient Health Questionnaire-9 Score 15 02/14/2024 Patient Health Questionnaire-9 Score 15 02/14/2024 Last PHQ-9: Questionnaire Data Not on file 0 02/14/2024 Housing Stability Answer Date Recorded What is [...] Answer Date Recorded Patient Health Questionnaire-2 Score 4 02/14/2024 Comments No Sex and Gender Information Value Date Recorded Sex Assigned at Female 08/15/2022 10:20 AM EDT Legal Sex Female 10:20 AM EDT Gender Identity Female 08/15/2022 10:20 AM EDT Sexual Orientation Straight 08/15/2022 10 :20 AM EDT Last Filed Vital Signs Vital Sign Reading Time Taken Comments Blood Pressure 140/76 11/15/2024 11:11 AM EST Pulse 83 11/15/2024 11:11 AM EST Temperature 35.9 ??C (96.7 ??F) 11/15/2024 11:[address] Respiratory Rate 19 11/15/2024 11:11 AM EST Oxygen Saturation 94% 09/18/2024 9:16 AM EST Inhaled Oxygen Concentration - - Weight 69.5 kg (153 lb 3.2 oz) 11/15/2024 11:11 AM EST Height 167.6 cm (5' 6 ) 07/03/2024 9:54 AM EDT Body Mass Index 24.73 07/03/2024 9:54 AM EDT Plan of Treatment Upcoming Encounters Date Type Department Care Team (Late st Contact Info) Description 01/03/2025 9:15 AM EDT Office Visit [facility] MEDICINE [address] [place] [address] Name, MD Jules [address] [place] [address] 05/14/2025 11:00 AM EDT Office Visit [facility] OPTOMETRY [address] [place] [address] Mich, Allyson, OD [address] [place] [address] Health Maintenance Due Date Last Done Comments CT Colonography 1950 Colonoscopy 1950 Colorectal Cancer Screening 1950 FIT DNA/Cologuard 1950 FIT 1950 FOBT 1950 Sigmoidoscopy 1950 Diabetes: Urine Protein Screening 12/21/2022 12/21/2021, 10/29/2020 COVID-19 Vaccine ( season) 2024 11/29/2023, 05/25/2022, 09/15/2021, Additional history exists SDOH Screening 06/23/2024 06/23/2023 Depression Monitoring (PHQ-9) 08/16/2024 02/14/2024, 02/14/2024 Diabetes: Hemoglobin A1C 12/17/2024 024, 06/18/2024, 04/15/2024, Additional history exists Alcohol/Substance Use Screening 02/13/2025 02/14/2024 Depression Screening 02/13/2025 02/14/2024, 02/14/20 24 Lipid Panel 06/07/2025 06/07/2024, 10/0 12/2022, 12/21/2021, Additional history exists Diabetes: Foot Exam 09/18/2025 09/18/2024, 09/18/2024, 09/18/2024, Additional history exists Eye Exam 11/13/2025 11/13/2024, 10/17, 11/13/2024, Additional history exists Tobacco Screening 12/03/2025 12/03/2024 Mammogram 12/18/2025 12/19/2023, 11/17, 11/05/2020, Additional history exists HPV/Cotest 07/03/2029 07/03/2024, 04/26/2017 Pap Smear 07/03/2029 07/03/2024 DTaP/Tdap/Td Vaccines (3 - Td or Tdap) 12/31/2033 01/01/2024, 09/19/2013 Zoster Vaccines Completed 07/15/2022, 04/16, 05/05/2017 Pneumococcal Vaccine: 50+ Years Completed 06/23/2023, 08/16/2021, 07/29/2015, Additional history exists Hepatitis B Vaccines Completed 07/21/2023, 12/25/2013, 11/11/2013 Hepatitis A Vaccines Completed 08/24/2023, 11/11/19 14 RSV Patients and Patients Aged 60 years or older Completed 01/01/2024 Influenza Vaccine Completed 07/03/2024, , 06/24/2022, Additional history exists HIB Vaccines Aged Out No longer eligi ble based on patient's age to complete this topic HPV Vaccines Aged Out No longer eligi ble based on patient's age to complete this topic IPV Vaccines Aged Out No longer eligi ble based on patient's age to complete this topic Meningococcal Vaccine Aged Out No juma maria del carmen eligible based on patient's age to complete this topic RSV under 20 months Aged Out No longe r eligible based on patient's age to complete this topic Rotavirus Vaccines Aged Out No longer eligible based on patient's age to complete this topic Goals Goal Patient Goal Type Associated Problems Recent Progress Patient-Stated? Author Blood Pressure < 140/90 Blood Pressure 140/76(2024 11:11 AM EST) No Colt Garza Hemoglobin A1c < 7.5 Result Component 9(09/18/2024 9:19 AM EST) No Colt Garza Note: Modified based on patient age, treatment options available, risk of hypoBG given she lives alone, etc. Procedures Procedure Name Priority Date/Time Associated Diagnosis Comments OCT, RETINA - OU - BOTH EYES Routine 11/13/2024 11:00 AM EST Epiretinal membrane (ERM) of right eye COMPREHENSIVE METABOLIC PANEL Routine 09/27/2024 3:32 PM EST Type 2 diabetes mellitus without complication, with long-term current use of insulin ([facility]/HCC) POCT GLYCATED HEMOGLOBIN, TOTAL Routine 09/18/2024 9:19 AM EST Type 2 diabetes mellitus without complication, with long-term current use of insulin ([facility]) THINPREP IMAGING PAP AND HPV MRNA E6/E7 Routine 07/03/2024 9:54 AM EDT LIPID PANEL, STANDARD Routine 06/07/2024 12:35 PM EDT Type 2 diabetes mellitus without complication, with long-term current use of insulin ([facility]) BI MAMMOGRAM SCREENING TOMOSYNTHESIS BILATERAL Routine 12/19/2023 9:10 AM EST ALBUMIN, RANDOM URINE W/CREATININE Routine 12/21/2021 10:59 AM EST from Last 3 Months or Most Recently Relevant to Health Maintenance Results * OCT, Retina - OU - Both Eyes (11/13/2024 11:00 AM EST) Allyson Benedict, OD - 12/03/2024 12:35 PM EST Right Eye Quality was good. Progression has improved. Left Eye Quality was good. Progression has been stable. Notes OCT MACULA INTERPRETATION Optical Coherence Tomography Interpretation Report Measurements: OD ??OS Macula Thickness ??309 microns ??222 microns Test findings: OD: shallow foveal contour, epiretinal membrane (ERM) with central cystic changes, no retinal pigment epithelium (RPE) disruption, no subretinal fluid (SRF) OS: normal foveal contour, no cystoid macular edema (CME), no retinal pigment epithelium (RPE) disruption, no subretinal fluid (SRF) Impression and Plan: ?? Reduced cystoid macular edema (CME) in the right eye compared to 2021. Will send notes back to Dr. Jravis at [facility] for further consultation/treatment. Monitor here in 6 months as well. us Allyson Epps OD OPHTH TOMOGRAPHY Final Result * (ABNORMAL) Comprehensive Metabolic Panel (09/27/2024 3:32 PM EST) Sodium 141 135 - 145 mmol/L [facility] Potassium 3.9 3.3 - 5.1 mmol/L [facility] Chloride 103 96 - 108 mmol/L [facility] Carbon Dioxide 29 22 - 29 mmol/L [facility] Anion Gap 13 12 - 20 [facility] Urea Nitrogen (BUN) 16 9 - 16 mg/dL [facility] Creatinine, Serum 0.88 0.5 - 1.4 mg/dL [facility] Estimated Glomerular Filt Rate >60 [facility] Comment:Chronic Kidney Disea se: Estimated GFR < 60 mL/min/1.96w6Vuahpn Kidney Disease: Estimated GFR < 15 mL/min/1.73m2 Glucose 239(H) 60 - 115 mg/dL [facility] Calcium 9.1 8.4 - 10.2 mg/dL [facility] Bilirubin, Total 0.4 0.0 - 1.0 mg/dL [facility] Aspartate Amino Transferase 21 5 - 31 U/L [facility] Alanine Aminotransferase 16 0 - 31 U/L [facility] Total Protein 7.5 6.5 - 8.0 g/dL [facility] Albumin Level 4.1 3.5 - 5.0 g/dL [facility] Alkaline Phosphatase 107 39 - 117 U/L [facility] Blood Venous blood specimen / Unknown 09/27/2024 3:32 PM EST 09/27/2024 3:56 PM EST us Jules Landis MD LAB BLOOD ORDERABLES Final Resul t [facility] [address] [place] [address] [phone] * (ABNORMAL) POCT HGB A1C (09/18/2024 9:19 AM EST) Pathologist [facility] Hemoglobin A1C 9.0(A) 4.0 - 6.0 % QC Media Lot # [id number] Lot# Expiration Date [id number] Blood 09/18/2024 9:19 AM EST us Jules Landis MD POINT OF CARE TEST ENTER/EDIT OR DERABLES Final Result * ThinPrep Imaging Pap and HPV mRNA E6/E7 (07/03/2024 9:54 AM EDT) Pathologist [facility] HPV nRNA E6/E7 Not Detected Not Detected [facility] Comment:Methodology: Transcr iption-Mediated AmplificationThis assay detects E6/E7 viral messenger RNA (mRNA) from 14high-risk HPV types (16,18,31,33,35,39,45,51,52,56,58,59,66,68).Cervical sources are required for HPV testing.If a vaginal source from a patient who has had atotal hysterectomy with removal of cervix wassubmitted, please contact the testing laboratoryfor alternative testing options.For additional information, please refer [email or web address] Now/faq/ONI150f8(This link if provided for information/educational purposes only.)THIS TEST WAS PERFORMED AT:[facility] [place] [id number] LUIS MARTÍNEZ MD SOURCE: SEE NOTE [facility] Comment:None given Report Status: TNP [facility] Clinical Information: SEE NOTE [facility] Comment:None given LMP: SEE NOTE [facility] Comment:NONE GIVEN Prev. PAP: SEE NOTE [facility] Comment:NONE GIVEN Prev. BX: SEE NOTE [facility] Comment:NONE GIVEN Statement Of Adequacy: SEE NOTE [facility] Comment:Satisfactory for galileo luation.Endocervical/transformation zone componentpresent. General Categorization: [facility] Interpretation/Result: SEE NOTE [facility] Comment:Cytology Results: Ne gative for intraepitheliallesion or malignancy. Cytology Comment SEE NOTE [facility] Comment:This Pap test has be en evaluated with computerassisted technology. Arts And Sciences Dean: SEE NOTE [facility] Comment:CMG, CT(ASCP)CT scre ening location: [place] [address] Review Arts And Sciences Dean: [facility] Pathologist [facility] PAP Infection [facility] See Note SEE NOTE [facility] Comment:EXPLANATORY NOTE:The Pap is a screening test for cervical cancer. It isnot a diagnostic test and is subject to false negativeand false positive results. It is most reliable when asatisfactory sample, regularly obtained, is submittedwith relevant clinical findings and history, and whenthe Pap result is evaluated along with historic andcurrent clinical information. 07/03/2024 9:54 AM EDT 07/03/2024 6:04 PM EDT Narrative [facility] - 07/09/2024 2:51 PM EDT SEE SCANNED RESULTS IN EMR us Cassidy PARKS LAB PATHOLOGY ORDERABLES Final Result [facility] [address] [place] [address] [phone] * Lipid Panel, Standard (06/07/2024 12:35 PM EDT) Triglycerides 53 <150 mg/dL [facility] Comment:Desirable Triglyceri de: less than 150 mg/dLBorderline High Triglyceride 150-199 mg/dLHigh Triglyceride: 200-499 mg/dLVery High Triglyceride: greater than or equal to 5OO mg/dL Cholesterol 140 <200 mg/dL [facility] Comment:Desirable Cholestero l: less than 200 mg/dLBorderline High Cholesterol: 200-239 mg/dLHigh Cholesterol: greater than 239 mg/dL LDL Cholesterol Calculated 66 <100 mg/dL [facility] Comment:Desirable LDL: less than 100 mg/dLNear Optimal/Above Optimal LDL: 110- 129 mg/dLBorderline High LDL: 130-159 mg/dLHigh LDL: 160-189 mg/dLVery High LDL: greater than or equal to 190 mg/dL HDL Cholesterol 64 >40 mg/dL [facility] Comment:Desirable HDL: great er than 40 mg/dL Note: This HDL assay may give artificially low results in patients with liver disease. Blood Venous blood specimen / Unknown 06/07/2024 12:35 PM EDT 06/07/2024 1:15 PM EDT Arianna Wellington GENERAL FREIGHT AGENT LAB BLOOD ORDERABLES Final Resu lt [facility] [address] [place] [address] [phone] * BI Mammogram Screening Tomosynthesis Bilateral (12/19/2023 9:10 AM EST) Anatomical Region Laterality Modality Breast Bilateral Mammography 12/19/2023 9:10 AM EST Narrative 01/02/2024 9:14 AM EDT ? [facility] [place] ? [address] ?[place] [address] ? Mammography Report ? Signed ? Patient: Colin,Eva ?MR#: [id number] ? : 1950 ?Acct:[id number] ? Age/Sex: 73 / F ?ADM Date: 03/05/24 ? Loc: HO.MAMMO ? Attending Dr: Kathleen Rayna GENERAL FREIGHT AGENT ? Ordering Physician: Rayna,Kathleen GENERAL FREIGHT AGENT ?Results: 2Beni ?? gn Findings ? Date of Service: 12/19/23 ?Follow Up: 1 Year From Orig ?? inal Mammogram ? Procedure(s): MM tomosynthesis screening BI ?? Accession Number(s): [id number] ? cc: Arianna Wellington SCHOOL JANITOR; Kathleen Way GENERAL FREIGHT AGENT ? EXAMINATION: ?? MM SCREENING DIGITAL BREAST TOMOSYNTHESIS, BILATERAL ? CLINICAL INFORMATION: ? Screening. Asymptomatic. ? COMPARISON: ?? Mammography: 12/05/2022, 12/09/2021, 10/31/2020, and studies dating ?? back to January 14, 2016 ? TECHNIQUE: ?? Digital breast tomosynthesis is performed in both the craniocaudal and ?? mediolateral oblique views along with computer-aided detection (CAD). ?? Synthesized 2D images are generated from the tomosynthesis. ? FINDINGS: ?? There are scattered areas of fibroglandular density (ACR BI-RADS breast ?? composition Category b). ? There are a few loosely grouped benign-appearing calcifications left ?? breast upper medial aspect. ??A focal asymmetry in the inferomedial left ?? breast, posterior one third, has been present on multiple prior studies ?? and is benign. Otherwise there are no suspicious masses, suspicious ?? grouped calcifications, or areas of architectural distortion in either ?? breast. The parenchymal pattern is stable from prior exams. ?? No skin or axillary abnormalities. ? MM/MM tomosynthesis screening BI ?? IMPRESSION: ?? No mammographic evidence of malignancy. ? Stable benign findings. ? ASSESSMENT: ? BI-RADS BI-RADS 2 - Benign Findings ? RECOMMENDATION: ?? Routine annual mammography screening. ? 1 year F/U ? This examination should not preclude the clinical evaluation of a ?? suspicious palpable abnormality. ? This patient's information was entered into a reminder system with a ?? target due date for their next mammogram. ? Dictated By: ?Jake West MD ? Signed By: ?<Electronically signed by Jake West MD in OV> ?01/02/24 0910 ? DD/ 0910 ? TD/TT: ? Chinese Medicine Practitioner: ? Procedure Note Donotuseinterpreter, Image - 01/02/2024 [facility] [address] [place] [address] Mammography Report Signed Patient: Oly Colin#: [id number] : 1950Acct:[id number] Age/Sex: 73 / FADM Date: 12/19/23 Loc: HO.MAMMO Attending Dr: Kathleen Way GENERAL FREIGHT AGENT Ordering Physician: Kathleen Way FNPResults: 2Beni gn Findings Date of Service: 12/19/23Follow Up: 1 Year From Orig inal Mammogram Procedure(s): MM tomosynthesis screening BI Accession Number(s): [id number] cc: Arianna Wellington SCHOOL JANITOR; Kathleen [address] GENERAL FREIGHT AGENT EXAMINATION: MM SCREENING DIGITAL BREAST TOMOSYNTHESIS, BILATERAL CLINICAL INFORMATION: Screening. Asymptomatic. COMPARISON: Mammography: 12/05/2022, 12/09/2021, 10/31/2020, and studies dating back to January 14, 2016 TECHNIQUE: Digital breast tomosynthesis is performed in both the craniocaudal and mediolateral oblique views along with computer-aided detection (CAD). Synthesized 2D images are generated from the tomosynthesis. FINDINGS: There are scattered areas of fibroglandular density (ACR BI-RADS breast composition Category b). There are a few loosely grouped benign-appearing calcifications left breast upper medial aspect. A focal asymmetry in the inferomedial left breast, posterior one third, has been present on multiple prior studies and is benign. Otherwise there are no suspicious masses, suspicious grouped calcifications, or areas of architectural distortion in either breast. The parenchymal pattern is stable from prior exams. No skin or axillary abnormalities. MM/MM tomosynthesis screening BI IMPRESSION: No mammographic evidence of malignancy. Stable benign findings. ASSESSMENT: BI-RADS BI-RADS 2 - Benign Findings RECOMMENDATION: Routine annual mammography screening. 1 year F/U This examination should not preclude the clinical evaluation of a suspicious palpable abnormality. This patient's information was entered into a reminder system with a target due date for their next mammogram. Dictated By: Jake West MD Signed By: <Electronically signed by Jake West MD in OV> 01/02/24909 DD/ 9 TD/TT: Chinese Medicine Practitioner: [facility] GENERAL FREIGHT AGENT IMG BI PROCEDURES Final Resul t * ALBUMIN, RANDOM URINE W/CREATININE (12/21/2021 10:59 AM EST) Microalbumin Urine 1.4 See Note: mg/dL Training Advisor [facility] Comment: Reference Range: ?? Reference Range Not established Microalb/Creat Ratio 11 <30 mcg/mg creat [facility] Comment: ?? The ADA defines abnormalities in albumin excretion as follows: ?? Albuminuria Category ?Result (mcg/mg creatinine) ?? Normal to Mildly increased ?? <30 Moderately increased ? 30-299 ?? Severely increased ? > OR = 300 ?? The ADA recommends that at least two of three specimens collected within a 3-6 month period be abnormal before considering a patient to be within a diagnostic category. Creatinine, Urine 132 20 - 275 mg/dL Training Ad[facility] 12/21/2021 10:5 9 AM EST Kevin Hester MD LAB URINE ORDERABLES Final R esult Training Advisor [facility] [address] [place] [address], from Last 3 Months or Most Recently Relevant to Health Maintenance Insurance [employer] PPO Care Teams Peg Driver Relationship Specialty Start Date End Date Name, MD Jules [address] [place] [address] PCP - General Internal Medicine 06/18/24 Francoise Dial PharmD [address] [place] [address] Pharmacist Internal Medicine 05/21/24
--- OUTSIDE RECORDS SUMMARY | 2024-12-24 09:59 | XMS_ITS | Encounter Summary ---
Author Organization [employer] Address [address] [facility] [address] [place] [address] Care Team Providers Care Drafting Teacher Name Role Phone Arianna Wellington Primary Care Provider [phone] Francoise Dial PharmD Unavailable [phone] Name, Jules GABRIEL Primary Care Provider [phone] Encounter Details Date Type Department Care Team (Late st Contact Info) Description 09/25/2023 Orders Only [facility] MED & PEDS [address] [place] [address] Arianna Wellington FNP [address] [place] [address] Social History Tobacco Use Types Packs/Day Years [...] EDT Office Visit [facility] MEDICINE [address] [place] [address] Name, MD Jules [address] [place] [address] 05/14/2025 11:00 AM EDT Office Visit [facility] OPTOMETRY [address] [place] [address] Mich, Allyson, OD [address] [place] [address] documented as of this encounter Goals Goal [...] documented as of this encounter Care Teams Drafting Teacher Relationship Specialty Start Date End Date Arianna Wellington FNP [address] [place] [address] PCP - General Family Medicine 03/20/23 06/17/24 Jules Landis MD [address] [place] [address] PCP - General Internal Medicine 06/18/24 Francoise Dial PharmD [address] [place] [address] Pharmacist Internal Medicine 05/21/24 documented as of this encounter
--- OUTSIDE RECORDS SUMMARY | 2024-12-24 09:59 | XMS_ITS | Encounter Summary ---
Author Organization [employer] Address [address] [facility] [address] [place] [address] Care Team Providers Care Servicenow Administrator Developer Name Role Phone Arianna Wellington Primary Care Provider [phone] Francoise Dial PharmD Unavailable [phone] Name, Jules GABRIEL Primary Care Provider [phone] Reason for Visit * Reason Onset Date Comments Other 03/20/2023 Encounter Details Date Type Department Care Team (Late st Contact Info) Description 03/20/2023 Telephone [facility] MEDICINE [address] [place] [address] [facility] [address] [place] [address] Other Social History Tobacco Use Types Packs/Day Years Used Date Smoking Tobacco: Never Assessed Comments Unknown Sex and Gender Information Value Date Recorded Sex Assigned at Female 08/15/2022 10:20 AM EDT Legal Sex Female 10:20 AM EDT Gender Identity Female 08/15/2022 10:20 AM EDT Sexual Orientation Straight 08/15/2022 10 :20 AM EDT documented as of this encounter Miscellaneous Notes * Telephone Encounter - Janie Crocker - 03/20/2023 3:54 PM EDT Tc from patient requesting a new glucose meter with testing supplies. documented in this encounter Plan of Treatment Upcoming Encounters Date Type Department Care Team (Late st Contact Info) Description 01/03/2025 9:15 AM EDT Office Visit [facility] MEDICINE [address] [place] [address] NameJules MD [address] [place] [address] 05/14/2025 11:00 AM EDT Office Visit [facility] OPTOMETRY [address] [place] [address] Allyson Epps, OD [address] [place] [address] documented as of this encounter Visit Diagnoses Diagnosis Type 2 diabetes mellitus with other specified complication, unspecified whether rat exterminator insulin use ([facility]) documented in this encounter Care Teams Servicenow Administrator Developer Relationship Specialty Start Date End Date Arianna Wellington FNP [address] [place] [address] PCP - General Family Medicine 03/20/23 06/17/24 NameJules MD [address] [place] [id number] PCP - General Internal Medicine 06/18/24 Francoise Dial PharmD [address] [place] [phone] Pharmacist Internal Medicine 05/21/24 documented as of this encounter
--- OUTSIDE RECORDS SUMMARY | 2024-12-24 09:59 | XMS_ITS | Encounter Summary ---
Author Organization [employer] Address [address] [facility] [address] [place] [address] Care Team Providers Care Lump Roller Name Role Phone Arianna Wellington Primary Care Provider [phone] Francoise Dial PharmD Unavailable [phone] Name, Jules GABRIEL Primary Care Provider [phone] Encounter Details Date Type Department Care Team (Late st Contact Info) Description 01/10/2024 Orders Only [facility] CH[facility] MED & PEDS [address] [place] [address] Arianna Wellington FNP [address] [place] [address] Social History Tobacco Use Types Packs/Day Years [...] Description 01/03/2025 9:15 AM EDT Office Visit [facility] MEDICINE [address] [place] [address] Name, MD Jules [address] [place] [address] 05/14/2025 11:00 AM EDT Office Visit [facility] OPTOMETRY [address] [place] [address] Allyson Epps, OD [address] [place] [address] documented as of this encounter Goals Goal [...] documented as of this encounter Care Teams Lump Roller Relationship Specialty Start Date End Date Arianna Wellington FNP [address] [place] [address] PCP - General Family Medicine 03/20/23 06/17/24 Sabiha, MD Jules [address] [place] [address] PCP - General Internal Medicine 06/18/24 Francoise Dial PharmD [address] [place] [address] Pharmacist Internal Medicine 05/21/24 documented as of this encounter
== END 2024-12-24 09:02 | disposition home or self-care (01) ==
LOC: HO.MAMMO 09:01
PROVIDERS: PCP Internal Medicine Geriatric Medicine; Visit Provider Nurse Practitioner Family
DX: Z12.31 Encounter for screening mammogram for malignant neoplasm of breast (principal)
CPT/HCPCS: 77063; 77067

== ENCOUNTER → 2024-12-24 09:15 | Outpatient (BNV) | payer MEDICARE, SELFPAY | PROVIDERS: PCP Internal Medicine Geriatric Medicine; Visit Provider Internal Medicine | DX: Z12.31 Encounter for screening mammogram for malignant neoplasm of breast (principal) | CPT/HCPCS: 77063; 77067 ==

== ENCOUNTER 2025-02-20 09:06 | Outpatient (AMB) | payer MEDICARE, SELFPAY ==
[2025-02-20 09:12] VITALS: BMI 20.7
--- NOTE | 2025-02-20 09:12 | A.OFFVIS_ITS ---
Vital Signs 02/20/25 09:12 Height 5 ft 7 in Weight 132 lb BMI 20.7 Intake Visit Reasons: O/V chronic back pain s/p pain mgmt injection Intake Note: Eva 74 yr old female presents today for her follow up visit s/p lumbar injection with pain management. States injection was with pain mgmt was on 02/13/24, reports injection lasted for 12 hours and then her pain was back. Allergies DEVORAH Inhibitors Allergy (Severe, Verified 02/20/25 09:15) congestion lisinopril [LISINOPRIL] Allergy (Severe, Verified 02/20/25 09:15) SEVERE CONGESTION tetracycline [TETRACYCLINE] Allergy (Intermediate, Verified 02/20/25 09:15) LETHARGIC, drowsiness Horse/Equine Containing Products Adverse Reaction (Unknown, Verified 02/20/25 09:15) Unknown pollen Allergy (Intermediate, Uncoded 02/20/25 09:15) runny nose HPI Comments Details: I saw patient once on 01/04/2024 complain of chronic back pain. MRI last done 2020 already reported multilevel degenerative changes and severe spinal stenosis. We had agreed on referring him to neuro spine. I do not see official report but I suspect they looked at her films and recommended for injection instead. She had L5-S1 interlaminar epidural injection done by our Pain Management on 01/2024. We have not seen her since then. I asked her today why it took her so long to return. Patient says it is hard for her to get around. She says that injection did not work or that she had poor experience because of a brace that was given to her that was so heavy. Not sure what kind of brace it was or who gave it to her. She is not wearing it today. She continues with the same chronic lower back pain. She denies it it radiates. But she mentions that there is a growing muscle not on the left lower back that is causing some kind of throbbing pain for her. She maintains that she does not want to pursue surgery. She is not convinced injections we will work. She mentions that she has transferred to a different primary care physician. She has history of diabetes. She had lost 30 lb recently being on Trulicity. History of substance abuse, on Suboxone currently. [facility] Medical History (Updated 02/20/25 @ 13:51 by Jeannie Mitchell MD) Chronic back pain Lumbar disc herniation Spondylolisthesis, lumbar region Diverticulosis Colon cancer screening DVT (deep venous thrombosis) Hx of opioid abuse Trochanteric bursitis of right hip Lumbar spondylosis Chronic right hip pain Nondependent tobacco use disorder Unspecified pruritic disorder Mild nonproliferative diabetic retinopathy Allergic rhinitis HTN (hypertension) Hepatitis C Diabetes Surgical History Hx of vein stripping (08/09/24) H/O colonoscopy Family History Mother Enlarged heart Father No problems noted. Social History Patient Tobacco Use Status: Former Tobacco user Tobacco use type: Cigarette Cigarettes Per Day: 2 Current occupational status: retired Current occupation: rt hand Physical Exam Vital Signs: BMI result Body Mass Index 20.7 Palpable left sided prominence, not soft, around L2-3 level. Patient has difficulty getting up from seated position. Stands with still forward posture. Results Reviewed Results Reviewed: Ordering Physician: Maria Luz Cho NP Date of Service: 08/09/21 Procedure(s): MR lumbar spine wo con Accession Number(s): [id number] cc: Maria Luz Cho NP~ EXAMINATION: MR LUMBAR SPINE WITHOUT CONTRAST CLINICAL INFORMATION: 71-year-old with chronic low back pain and bilateral leg pain and weakness. Spondylolisthesis, lumbar region. COMPARISON: None TECHNIQUE: MRI of the lumbar spine was obtained using routine sequences without contrast. FINDINGS: Coronal Alignment: Lgmpcprf-pn-ttmcmz lumbar rotatory levoscoliosis, convex to the left at L2-L3. There is tjdwf-wz-ejio lateral listhesis at L4-L5. There is uoju-xc-exlho lateral listhesis at T12-L1. Sagittal Alignment: There is 5 mm of grade 1 spondylolisthesis at L5-S1, likely degenerative. There is 4 mm of grade 1 degenerative spondylolisthesis at L4-L5, and there is trace rotatory anterolisthesis at L3-L4. There is trace retrolisthesis at T12-L1. Lumbosacral Junction: Normal. Vertebral Bodies: Vertebral body heights are well maintained. No definite compression fractures are identified. Disc Spaces and Endplates: Znpqxhrf-ji-hqcxea disc space height loss asymmetric to the left at L5-S1 with intradiscal degenerative signal changes with subchondral degenerative changes along the inferior endplate of L5 and mild spondylosis. Mild disc space height loss and disc desiccation at L4-L5 with Schmorl's nodes and mild spondylosis. Xvzc-vt-rzggvvwn disc space height loss asymmetric to the right at L3-L4 with disc desiccation and moderate spondylosis. Severe disc space height loss, disc desiccation, Schmorl's nodes, and spondylosis at T12-L1, T11-T12, T10-T11, T9-T10, and T8-T9. Probable intradiscal vacuum disc phenomenon at L4-L5 and L5-S1. Bone Marrow: Type I degenerative marrow signal changes along the endplates at L5-S1 and L2-L3. Conus Medullaris: Terminates at L1-L2. Morphology and signal is normal. Intradural Nerve Roots: Crowding of the intradural nerve roots at L4-L5 and, to a lesser degree, at L3-L4 consistent with multilevel spinal stenosis. L5-S1: Unroofing of the posterior disc margin consistent with grade 1 spondylolisthesis with bilateral paravertebral/posterolateral disc-osteophyte complex and severe bilateral facet arthropathy. There is mild left subarticular recess stenosis with pxggzehtzp-dd-cmvw central spinal canal stenosis with possible encroachment on the traversing left S1 nerve root. There is severe left-sided and nebm-by-ahbferts right-sided craniocaudal neural foraminal stenosis with left L5 nerve root impingement. L4-L5: Unroofing of the posterior disc margin noted with superimposed disc bulging and a superimposed central to right subarticular extruded disc herniation with mild cephalad migration. Ligamentum flavum thickening and severe bilateral facet arthropathy is noted with severe central spinal canal stenosis and crowding of the intradural nerve roots, with moderate bilateral lateral recess stenosis. There is severe right subarticular recess stenosis, as well, and there is ovcl-ku-ofoyvkct left-sided and hhqmetiz-pv-foavzp right-sided neural foraminal stenosis with right L4 nerve root impingement. L3-L4: Mild disc bulging is noted with a superimposed right central to subarticular and foraminal disc herniation, with flattening of the dural sac asymmetric to the right. There is marked ligamentum flavum thickening, and there is severe right-sided and moderate left-sided facet arthropathy. There is moderate central spinal canal stenosis with crowding of the intradural nerve roots and mild narrowing of the right subarticular recess. There is severe right-sided neural foraminal stenosis with right L3 nerve root impingement. L2-L3: Small left paramedian to foraminal disc protrusion. Mild left-sided and bwcbpfoj-gu-dcxnbw right-sided facet hypertrophic degenerative change with mild right-sided neural foraminal narrowing without canal stenosis. L1-L2: Slight retrolisthesis is noted with a small right paramedian disc protrusion and moderate bilateral facet arthrosis with hcyi-ne-otljpxab right-sided neural foraminal stenosis. No spinal canal stenosis. Posterolateral disc-osteophyte complex asymmetric to the right at T12-L1 which is not imaged in the axial plane with moderate bilateral facet arthropathy at this level, with mild left-sided and moderate right-sided neural foraminal stenosis without spinal canal stenosis. Small left paramedian disc protrusion at T11-T12 with moderate left-sided facet arthropathy and moderate left-sided neural foraminal stenosis. There is facet arthropathy, left more than right, at the remaining visualized thoracic levels. Paraspinal/Retroperitoneal: The paravertebral soft tissues are remarkable for mild generalized diffuse posterior paraspinal muscle volume loss. MR/MR lumbar spine wo con IMPRESSION: 1. Caqesvnq-wf-wzoggs rotatory lumbar levoscoliosis, with multilevel lateral subluxations, with grade 1 spondylolisthesis at L4-L5 and L5-S1 and trace retrolisthesis at L1-L2 and T12-L1. 2. Multilevel DDD and spondylosis, as detailed above, with extensive multilevel bilateral facet arthropathy and ligamentum flavum thickening. Multilevel disc bulging and disc herniations are described above, with severe spinal canal stenosis at L4-L5 and moderate spinal canal stenosis at L3-4 with mild spinal canal stenosis at L5-S1. 3. Multilevel bilateral neural foraminal stenosis, most severe on the left at L5-S1 and on the right at L3-L4, bilaterally at L4-L5, right more than left, as detailed above. 4. Multilevel lower thoracic degenerative changes, as discussed above. Assessment & Plan Assessment & Plan (1) Chronic back pain: Code(s): M54.9 - Dorsalgia, unspecified; G89.29 - Other chronic pain Category: Medical Qualifiers: Back pain location: low back pain Back pain laterality: bilateral Sciatica presence: without sciatica Qualified Code(s): M54.50 - Low back pain, unspecified; G89.29 - Other chronic pain (2) Spondylolisthesis, lumbar region: Code(s): M43.16 - Spondylolisthesis, lumbar region Category: Medical (3) Scoliosis (and kyphoscoliosis), idiopathic: Code(s): M41.20 - Other idiopathic scoliosis, site unspecified Category: Medical Plan I have not seen her over a year now. Comes in with the same chronic lower back pain that mainly is nonradicular. Past MRI at shown severe spinal stenosis and grade 1 spondylolisthesis L5-S1, multilevel degenerative changes. Question of new mass on left lower back. We sent her for x-ray in the office. Results below. It did not look like lipoma on exam as it was not soft. X-ray mentioned that the apex is most prominent at L3 level towards the left side so suspect that is the reason. We will discuss with patient on how we proceed and treatment options. Ordering Physician: Jeannie Narvaez Date of Service: 02/20/25 Procedure(s): XR thoracic spine 2V Accession Number(s): [id number] cc: Name,Jules GABRIEL; Jeannie Narvaez~ EXAMINATION: XR THORACIC SPINE CLINICAL INFORMATION: M54.9 - Dorsalgia, unspecified COMPARISON: None available. TECHNIQUE: 3 views of the thoracic spine were obtained. FINDINGS: There is an S-shaped thoracolumbar scoliosis, with the primary thoracic component convex to the right, apex at T11. Maximal Herman angle estimated at 32 degrees. There is an associated rotatory component with a compensatory levoconvex lumbar scoliosis. There is diffuse osteopenia. There are no compression deformities or acute fractures identified. No bone lesions. There is normal sagittal alignment without subluxation. Moderate multilevel degenerative disc disease present, most significant in the mid and inferior thoracic spine. The imaged lungs, mediastinal contents, and soft tissues are grossly normal. XR/XR thoracic spine 2V IMPRESSION: 1. S-shaped thoracolumbar scoliosis, with thoracic component convex to the right, apex at T11. Maximal Herman angle estimated at 32 degrees. 2. There is diffuse osteopenia with diffuse degenerative disc changes. 3. There are no acute bony abnormalities or compression deformities. Electronically signed by: Jake West MD 02/20/2025 10:22 AM EDT Ordering Physician: Jeannie Narvaez Date of Service: 02/20/25 Procedure(s): XR lumbar spine 2-3V Accession Number(s): [id number] cc: Name,Jules GABRIEL; Jeannie Burgos EXAMINATION: XR LUMBOSACRAL SPINE CLINICAL INFORMATION: M54.9 - Dorsalgia, unspecified COMPARISON: 01/04/2024. TECHNIQUE: Three views of the lumbosacral spine. FINDINGS: There is a moderate to severe levoconvex scoliosis with a rotatory component, apex at L3, with estimated Herman angle of 46 degrees. There is a normal lordosis. There is a 3 mm degenerative retrolisthesis of L1 on L2. There is a 4 mm degenerative appearing anterolisthesis of L3 on L4, and 4 mm anterolisthesis L4 on L5. There is a 10 mm anterolisthesis of L5 on S1. There are no compression deformities, fractures, or suspicious bone lesions. Advanced degenerative disc changes at all levels. Advanced degenerative right greater than left facet changes throughout. Probable pars defects at L5 although difficult to visualize. XR/XR lumbar spine 2-3V IMPRESSION: 1. Moderate to severe levoconvex scoliosis, apex at L3, with estimated Herman angle of 46 degrees. There is a rotatory component. 2. Severe multilevel degenerative lumbar spondylosis. 3. No compression deformities or acute bony abnormalities. 4. 10 mm grade 1 spondylolisthesis L5-S1. 5. Overall no significant changes from 01/04/2024. Electronically signed by: Jake West MD 02/20/2025 10:33 AM EDT Assessment and plan discussed with patient, and patient was agreeable. All questions were answered thoroughly. Schedule telehealth follow-up. Jeannie Mitchell MD, BREE Board Certified, [place] Board of [employer] Medicine and Rehabilitation (ABPMR) Board Certified, [place] Board of Electrodiagnostic Medicine (ABEM) Orders: Orders XR lumbar spine 2-3V Today D17.1 - Benign lipomatous neoplasm of skin and subcutaneous tissue of trunk XR thoracic spine 2V Today D17.1 - Benign lipomatous neoplasm of skin and subcutaneous tissue of trunk Coding Level of Care Code Est Pt Level 4 (05031) Diagnoses Chronic bilateral low back pain without sciatica M54.50; G89.29 Back pain location: low back pain Back pain laterality: bilateral Sciatica presence: without sciatica Spondylolisthesis, lumbar region M43.16 Scoliosis (and kyphoscoliosis), idiopathic M41.20
--- OUTSIDE RECORDS SUMMARY | 2025-02-20 09:36 | XMS_ITS | Encounter Summary ---
Author Organization [employer] Address [address] [facility] [address] [address] Care Team Providers Care Brake Tester Name Role Phone Arianna Wellington Primary Care Provider [phone] Francoise Dial PharmD Unavailable [phone] Name, Jules GABRIEL Primary Care Provider [phone] Encounter Details Date Type Department Care Team ([facility] st Contact Info) Description 01/10/2024 Orders Only [facility] CHC MED & PEDS [address] [place] [address] Arianna Wellington FNP [address] [place] [address] Social History Tobacco Use Types Packs/Day Years [...] Care Team (Late st Contact Info) Description 02/24/2025 11:00 AM EDT Medication Management [facility] MEDICINE [address] [place] [address] Francoise Dial PharmD [address] [place] [address] 05/07/2025 2:00 PM EDT Office Visit [facility] MEDICINE [address] [place] [address] Britt Perkins MD [address] [place] [address] 05/14/2025 11:00 AM EDT Office Visit [facility] OPTOMETRY [address] [place] [address] Allyson Epps, OD [address] [place] [address] documented as of this encounter Goals Goal Patient Goal Type Associated Problems Recent Progress Patient-Stated? Author Blood Pressure < 140/90 Blood Pressure 120/62(2024 11:01 AM EDT) No Colt Garza Hemoglobin A1c < 7.5 Result Component 8.2( 9:26 AM EDT) Colt Bates Note: Modified based on patient age, treatment options available, risk of hypoBG given she lives alone, etc. documented as of this encounter Visit Diagnoses Not on filedocumented in this encounter Additional Health Concerns Assessment Noted Time PHQ-9 Depression Total Score: 24 023 9:07 AM EDT documented as of this encounter Care Teams Brake Tester Relationship Specialty Start Date End Date Arianna Wellington FNP [address] [place] [address] PCP - General Family Medicine 03/20/23 06/17/24 Name, MD Jules [address] [place] [address] PCP - General Internal Medicine 06/18/24 Francoise Dial PharmD [address] [place] [address] Pharmacist Internal Medicine 05/21/24 documented as of this encounter
--- OUTSIDE RECORDS SUMMARY | 2025-02-20 09:36 | XMS_ITS | Clinical Summary ---
Author Organization [employer] Address [address] [facility] [address] [place] [address] Care Team Providers Care Equip Maint Eng Name Role Phone Francoise Dial PharmD Unavailable [phone] Name, Jules GABRIEL Primary Care Provider Allergies Active Allergy Reactions Criticality Noted Date [...] Film under the tongue in the morning. 05/22/20 23 Active Lancets (OneTouch Delica Plus [id number]) miscIndication s:Type 2 diabetes mellitus without complication, unspecified whether halfway insulin use ([facility]) USE DIRECTED TO TEST BLOOD SUGAR FOUR TIMES DAILY 100 each 11/07/19 24 Active glucose blood (FreeStyle Precision Miguelito Test) test stripIndicatio ns:Type 2 diabetes mellitus with other specified complication, unspecified whether lobsterman insulin use ([facility]) Test blood sugar q 8 hours 100 each 12 11/29/19 24 Active Blood Pressure Monitor kitIndications :Elevated blood pressure reading 1 kit 2 times daily. 1 kit 11/29/19 24 Active docusate sodium (Colace) 100 MG capsule Take 1 tab po bid prn constipation 60 capsule 3 11/29/19 24 Active Additional Information Patient not taking.Reported on 01/20/2025 Continuous Blood Gluc Neuropsychology Service Director (FreeStyle Elizabeth 2 Alsen) device USE DIRECTED TO TEST BLOOD SUGAR EVERY 8 HOURS 12/06/19 Active Alcohol Swabs (Alcohol Prep) 70 % padsIndication s:Type 2 diabetes mellitus without complication, unspecified whether halfway insulin use (CMS/HCC) USE DIRECTED TO TEST BLOOD SUGAR FOUR TIMES DAILY 100 each 04/05/20 Active hydrocortisone (Anusol-HC) 2.5 % rectal cream Insert into the rectum 2 times daily. 28 g 2 06/07/20 Active Additional Information Patient not taking.Reported on 01/20/2025 FT Nicotine 2 MG lozenge DISSOLVE 1 LOZENGE EVERY 3 TO 4 HOURS NEEDED 05/21/20 Active Reguloid 57.6 % powder 06/07/20 Active metFORMIN XR (Glucophage-XR ) 500 MG 24 hr tabletIndicati ons:Type 2 diabetes mellitus with other specified complication, unspecified whether halfway insulin use ([facility]) TAKE 2 TABLETS BY MOUTH TWICE DAILY IN THE MORNING AND EVENING 360 tablet 1 07/03/20 24 Active hydroCHLOROthi azide (HYDRODiuril) 50 MG tablet TAKE 1 TABLET BY MOUTH EVERY MORNING 90 tablet 1 10/01/20 24 Active losartan (Cozaar) 100 MG tablet TAKE 1 TABLET BY MOUTH EVERY MORNING 90 tablet 1 10/01/20 24 Active aspirin (Aspirin Low Dose) 81 MG EC tablet TAKE 1 TABLET BY MOUTH EVERY MORNING 90 tablet 1 10/01/20 24 Active atorvastatin (Lipitor) 40 MG tablet TAKE 1 TABLET BY MOUTH EVERY MORNING 90 tablet 1 10/01/20 24 Active cetirizine (ZyrTEC) 10 MG tabletIndicati ons:Seasonal allergies TAKE 1 TABLET BY MOUTH EVERY MORNING 90 tablet 1 11/12/19 25 Active imiquimod (Aldara) 5 % creamIndicatio ns:Genital warts Apply 1 packet topically 3 (three) times a week for 48 doses. 12 packet 3 11/15/19 25 2024 Active Continuous Glucose Sensor (FreeStyle Elizabeth 2 Sensor) miscIndication s:Type 2 diabetes mellitus with other specified complication, unspecified whether halfway insulin use ([facility]) USE DIRECTED TO TEST BLOOD SUGAR EVERY 8 HOURS. CHANGE EVERY 14 DAYS . 2 each 01/01/20 Active fluticasone (Flonase) 50 MCG/ACT nasal spray Administer 2 sprays into each nostril Once per day. Shake gently. Before first use, prime pump. After use, clean tip and replace cap. 16 g 01/04/20 25 2025 Active Dulaglutide (Trulicity) 3 MG/0.5ML solution auto-injectorI ndications:Typ e 2 diabetes mellitus without complication, with long-term current use of insulin ([facility]) Inject 3 mg under the skin 1 (one) time per week. 2 mL 3 01/04/20 25 2025 Active tiZANidine (Zanaflex) 2 MG tablet Take 1 tablet (2 mg) by mouth every 8 (eight) hours if needed for muscle spasms for up to 10 days. 30 tablet 01/07/20 Active terbinafine (LamISIL) 250 MG tablet Take 1 tablet (250 mg) by mouth Once per day. 90 tablet 01/22/20 25 2024 Active empagliflozin (Jardiance) 10 MG Take 1 tablet (10 mg) by mouth Once per day. 30 tablet 02/01/20 25 2025 Active empagliflozin (Jardiance) 25 MG Take 1 tablet (25 mg) by mouth Once per day. 30 tablet 07/03/20 24 2024 Discontinued Jardiance 25 MG TAKE 1 TABLET BY MOUTH EVERY MORNING 30 tablet 5 01/25/20 25 2024 Discontinued(D ose adjustment) Active Problems Problem Noted Date Diagnosed Date [...] too much, and Currently in MAT at [facility], denies cravings has been able to maintain [...] Health Integration Plan Internal Follow up with [facility] External OP therapy referral and OP psychiatry Referral Patient Self Plan Patient to utilize skills provided in intervention , Patient to reach out to [facility] team as needed, Comply with medication , [...] Overview (09/18/2024): 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 Cannot find details of treatment VL negaive 2021. Had Hep A and B vaccines in the past Hypertension 04/06/2012 Tobacco dependence syndrome 04/06/2012 Mild nonproliferative diabetic retinopathy 12/18 Allergic rhinitis 03/07/2011 Diabetes mellitus type 2, uncomplicated 03/07/20 08 Encounters Date Type Department Care Team Description 02/13/2025 Telephone [facility] [address] [place] [address] Name, MD Jules TP request 02/04/2025 Orders Only [facility] [address] [place] [address] NameJules MD Hypersomnia (Primary Dx) 01/31/2025 Telephone [facility] [address] [place] [address] NameJules MD Medication Problem (Jardiance 25mg); Referral 01/31/2025 Telephone [facility] [place] [address] Jules Landis MD 01/31/2025 Telephone [facility] [place] [address] Francoise Dial PharmLaurita transfer patient (Patient is requesting transfer patient appt , patient spoke with pharmacist Francoise Dial and explained her concerns. Patient stated pcp doesn't hear what she haves to say regarding her health. ) 01/31/2025 Telephone [facility] [place] [address] Troy Murphy MA April recalls 01/24/2025 Refill [facility] [place] [address] Francoise Dial PharmD 01/20/2025 Telephone [facility] [place] [address] Francoise Dial PharmD 01/20/2025 Travel 01/06/2025 Telephone [facility] [place] [address] Jules Landis MD Prior Auth Prescription (Methocarbamol) 01/03/2025 9:15 AM EDT Office Visit [facility] [place] [address] Jules Landis MD Type 2 diabetes mellitus without complication, with long-term current use of insulin ([facility]) (Primary Dx); Chronic bilateral low back pain without sciatica 01/03/2025 Travel 01/02/2025 Telephone [facility] [place] [address] Troy Murphy MA chart prep 12/30/2024 Refill [facility] [place] [address] Arianna Wellington FNP Type 2 diabetes mellitus with other specified complication, unspecified whether halfway insulin use (CMS/HCC) 12/24/2024 Orders Only [facility] [place] [address] Arianna Wellington FNP from Last 3 Months [...] housing situation today? I have larisa moore 01/03/[address] you li ve. Do you have problems with any of the following? None of the above 01/03/2025 Food Insecurity Answer Date Recorded Within the past 12 months, y ou worried that your food would run out before you got money to buy more: Never True 01/03/2025 Within the past 12 months,th e food you bought just didn't last and you didn't have enough money to get more: Never True Transportation Answer Date Recorded In the past 12 months, has l ack of transportation kept you from medical appts, meetings, work or from getting things needed for daily living? No 01/03/2025 Utilities Answer Date Recorded In the past 12 months, has t he electric, gas, oil or water company threatened to shut off services in your home? No 01/03/2025 Depression Answer Date Recorded Patient Health Questionnaire-2 Score 4 02/14/2024 Internet Access Answer Date Recorded Internet Access Q1 Yes 01/03/2025 Internet Access Q2 Not on file 01/03/2025 Comments No Sex and Gender Information Value Date Recorded Sex Assigned at Female 08/15/2022 10:20 AM EDT Legal Sex Female 10:20 AM EDT Gender Identity Female 08/15/2022 10:20 AM EDT Sexual Orientation Straight 08/15/2022 10 :20 AM EDT Last Filed Vital Signs Vital Sign Reading Time Taken Comments Blood Pressure 120/62 01/20/2025 11:01 AM EDT Pulse 59 01/03/2025 9:14 AM EDT Temperature 36.9 ??C (98.5 ??F) 01/03/2025 9:14 AM ED T Respiratory Rate 18 01/03/2025 9:14 AM EDT Oxygen Saturation 98% 01/03/2025 9:14 AM EDT Inhaled Oxygen Concentration - - Weight 68.3 kg (150 lb 9.6 oz) 01/03/2025 9:14 A M EDT Height 170.2 cm (5' 7 ) 01/03/2025 9:14 AM EDT Body Mass Index 23.59 01/03/2025 9:14 AM EDT Plan of Treatment Upcoming Encounters Date Type Department Care Team (Late st Contact Info) Description 02/24/2025 11:00 AM EDT Medication Management [facility] [address] [place] [address] Francoise Dial, PharmD [address] [place] [address] 05/07/2025 2:00 PM EDT Office Visit [facility] [address] [place] [address] Britt Perkins MD [address] [place] [address] 05/14/2025 11:00 AM EDT Office Visit [facility] [address] [place] [address] Mich, Allyson, OD [address] [place] [address] Health Maintenance Due Date Last Done Comments CT Colonography 1950 Colonoscopy 1950 Colorectal Cancer Screening 1950 FIT DNA/Cologuard 1950 FIT 1950 FOBT 1950 Sigmoidoscopy 1950 Alcohol/Substance Use Screening 1962 Diabetes: Urine Protein Screening 12/21/2022 12/21/2021, 10/29/2020 COVID-19 Vaccine ( season) 2024 11/29/2023, 05/25/2022, 09/15/2021, Additional history exists Depression Screening 02/13/2025 02/14/2024, 02/14/20 24 Diabetes: Hemoglobin A1C 04/05/2025 025, 09/18/2024, 06/18/2024, Additional history exists Lipid Panel 06/07/2025 06/07/2024, 100 12/2022, 12/21/2021, Additional history exists Diabetes: Foot Exam 09/18/2025 09/18/2024, 09/18/2024, 09/18/2024, Additional history exists Eye Exam 11/13/2025 11/13/2024, 10/17, 11/13/2024, Additional history exists SDOH Screening 01/03/2026 01/03/2025 Tobacco Screening 01/20/2026 01/20/2025 Mammogram 12/24/2026 12/24/2024, 030 02/2024, 12/09/2021, Additional history exists HPV/Cotest 07/03/2029 07/03/2024, 04/26/2017 [...] 7.5 Result Component 8.2( 9:26 AM EDT) No Colt Garza Note: Modified based on patient age, treatment options available, risk of hypoBG given she lives alone, etc. Procedures Procedure Name Priority Date/Time Associated Diagnosis Comments POCT GLYCATED HEMOGLOBIN, TOTAL Routine 01/03/2025 9:26 AM EDT Type 2 diabetes mellitus without complication, with long-term current use of insulin ([facility]) POCT GLUCOSE Routine 01/03/2025 9:22 AM EDT Type 2 diabetes mellitus without complication, with long-term current use of insulin ([facility]) BI MAMMOGRAM SCREENING TOMOSYNTHESIS BILATERAL Routine 12/24/2024 9:15 AM EDT THINPREP IMAGING PAP AND HPV MRNA E6/E7 Routine 07/03/2024 9:54 AM EDT LIPID PANEL, STANDARD Routine 06/07/2024 12:35 PM EDT Type 2 diabetes mellitus without complication, with long-term current use of insulin ([facility]) ALBUMIN, RANDOM URINE W/CREATININE Routine 12/21/2021 10:59 AM EST from Last 3 Months or Most Recently Relevant to Health Maintenance Results * (ABNORMAL) POCT HGB A1C (01/03/2025 9:26 AM EDT) Hemoglobin A1C 8.2(A) 4.0 - 6.0 % QC Media Lot # [id number] Lot# Expiration Date [id number] Blood 01/03/2025 9:26 AM EDT us Jules Landis MD POINT OF CARE TEST ENTER/EDIT OR DERABLES Final Result * POCT Glucose (01/03/2025 9:22 AM EDT) Glucose Blood, POC 140 60 - 200 mg/dL QC Media Lot # [id number] Lot# Expiration Date [id number] Blood Capillary blood specimen / Unknown 01/03/2025 9:22 AM EDT us Jules Landis MD POINT OF CARE TEST ENTER/EDIT OR DERABLES Final Result * BI Mammogram Screening Tomosynthesis Bilateral (12/24/2024 9:15 AM EDT) Anatomical Region Laterality Modality Breast Bilateral Mammography 12/24/2024 9:15 AM EDT Narrative 12/31/2024 4:39 PM EDT ? [facility] ? [address] ?[place] [address] ? Mammography Report ? Signed ? Patient: Colin,Eva ?MR#: [id number] ? : 1950 ?Acct:[id number] ? Age/Sex: 74 / F ?ADM Date: 12/24/24 ? Loc: HO.MAMMO ? Attending Dr: Arianna Wellington MARKET RESEARCH CONSULTANT ? Ordering Physician: Arianna Wellington NP ?Results: 2Benign ?? Findings ? Date of Service: 12/24/24 ?Follow Up: 1 Year From Orig ?? inal Mammogram ? Procedure(s): MM tomosynthesis screening BI ?? Accession Number(s): [id number] ? cc: Arianna Wellington NP; Name,Jules GABRIEL ? EXAMINATION: ?? MM SCREENING DIGITAL BREAST TOMOSYNTHESIS, BILATERAL ? CLINICAL INFORMATION: ? Screening. Asymptomatic. ? COMPARISON: ?? Mammography: Comparison is made with available priors ? TECHNIQUE: ?? Digital breast mammography with tomosynthesis is performed in both the ?? craniocaudal and mediolateral oblique views along with computer-aided ?? detection (CAD). ? FINDINGS: ?? There are scattered areas of fibroglandular density (ACR BI-RADS breast ?? composition Category b). ?? Scattered asymmetries are stable. ?? There are no significant masses, abnormal calcifications, or other ?? abnormalities. ? MM/MM tomosynthesis screening BI ?? IMPRESSION: ?? No mammographic evidence of malignancy. ? ASSESSMENT: ? BI-RADS BI-RADS 2 - Benign Findings ? RECOMMENDATION: ?? Routine annual mammography screening. ? 1 year F/U ? This examination should not preclude the clinical evaluation of a ?? suspicious palpable abnormality. ? This patient's information was entered into a reminder system with a ?? target due date for their next mammogram. ? Electronically signed by: ??Kathleen Maldonado DO ??12/31/2024 04:36 PM EDT ? Dictated By: ?Kathleen Maldonado DO ? Signed By: ?<Electronically signed by Kathleen Maldonado, DO in OV> ? 12/31/24 1636 ? DD/ 0915 ? TD/TT: 12/24/24 0945 ? Aviation Metalsmith: ? Procedure Note Danica, Ubaldo - 12/31/2024 [place] [facility] [address] [place] [address] Mammography Report Signed Patient: Oly Colin#: [id number] : 1950Acct:[id number] Age/Sex: 74 / FADM Date: 12/24/24 Loc: HO.MAMMO Attending Dr: Arianna Wellington NP Ordering Physician: Arianna Wellington NPResults: 2Benign Findings Date of Service: 12/24/24Follow Up: 1 Year From Orig ina Mammogram Procedure(s): MM tomosynthesis screening BI Accession Number(s): [id number] cc: Arianna Wellington MARKET RESEARCH CONSULTANT; Name,Jules GABRIEL EXAMINATION: MM SCREENING DIGITAL BREAST TOMOSYNTHESIS, BILATERAL CLINICAL INFORMATION: Screening. Asymptomatic. COMPARISON: Mammography: Comparison is made with available priors TECHNIQUE: Digital breast mammography with tomosynthesis is performed in both the craniocaudal and mediolateral oblique views along with computer-aided detection (CAD). FINDINGS: There are scattered areas of fibroglandular density (ACR BI-RADS breast composition Category b). Scattered asymmetries are stable. There are no significant masses, abnormal calcifications, or other abnormalities. MM/MM tomosynthesis screening BI IMPRESSION: No mammographic evidence of malignancy. ASSESSMENT: BI-RADS BI-RADS 2 - Benign Findings RECOMMENDATION: Routine annual mammography screening. 1 year F/U This examination should not preclude the clinical evaluation of a suspicious palpable abnormality. This patient's information was entered into a reminder system with a target due date for their next mammogram. Electronically signed by: Kathleen Maldonado DO 12/31/2024 04:36 PM EDT RP Dictated By: Kathleen Maldonado DO Signed By: <Electronically signed by Kathleen Maldonado DO in OV> 12/31/24 1636 DD/ TD/TT: 12/24/24 0945 [employer] Met[employer]mith: Arianna Wellington GREENHOUSE OR NURSERY TRANSPLANTER IMG BI PROCEDURES Final Result * ThinPrep Imaging Pap and HPV mRNA E6/E7 (07/03/2024 9:54 AM EDT) HPV nRNA E6/E7 Not Detected Not Detected [facility] Comment:Methodology: Transcr iption-Mediated AmplificationThis assay detects E6/E7 viral messenger RNA (mRNA) from 14high-risk HPV types (16,18,31,33,35,39,45,51,52,56,58,59,66,68).Cervical sources are required for HPV testing.If a vaginal source from a patient who has had atotal hysterectomy with removal of cervix wassubmitted, please contact the testing laboratoryfor alternative testing options.For additional information, please refer tohttp://education.Goodwall/faq/KRY069h8(This link if provided for information/educational purposes only.)THIS TEST WAS PERFORMED AT:[facility] [place] [id number] LUIS MARTÍNEZ MD SOURCE: SEE NOTE [facility] Comment:None given Report Status: TNP [facility] Clinical Information: SEE NOTE [facility] Comment:None given LMP: SEE NOTE [facility] Comment:NONE GIVEN Prev. PAP: SEE NOTE [facility] Comment:NONE GIVEN Prev. BX: SEE NOTE [facility] Comment:NONE GIVEN Statement Of Adequacy: SEE NOTE [facility] Comment:Satisfactory for galileo luation.Endocervical/transformation zone componentpresent. General Categorization: [facility] Interpretation/Result: SEE NOTE [facility] Comment:Cytology Results: Ne gative for intraepitheliallesion or malignancy. Cytology Comment SEE NOTE [facility] Comment:This Pap test has be en evaluated with computerassisted technology. Coal Equipment Operator: SEE NOTE [facility] Comment:CMG, CT(ASCP)CT scre ening location: [place] [address] Review Coal Equipment Operator: [facility] Pathologist [facility] PAP Infection [facility] See Note SEE NOTE [facility] Comment:EXPLANATORY NOTE:The Pap is a screening test for cervical cancer. It isnot a diagnostic test and is subject to false negativeand false positive results. It is most reliable when asatisfactory sample, regularly obtained, is submittedwith relevant clinical findings and history, and whenthe Pap result is evaluated along with historic andcurrent clinical information. 07/03/2024 9:54 AM EDT 07/03/2024 6:04 PM EDT Narrative [facility] - 07/09/2024 2:51 PM EDT SEE SCANNED RESULTS IN EMR us Cassidy PARKS LAB PATHOLOGY ORDERABLES Final Result [facility] [address] [place] [address] [phone] * Lipid Panel, Standard (06/07/2024 12:35 PM EDT) Triglycerides 53 <150 mg/dL [facility] Comment:Desirable Triglyceri de: less than 150 mg/dLBorderline High Triglyceride 150-199 mg/dLHigh Triglyceride: 200-499 mg/dLVery High Triglyceride: greater than or equal to 5OO mg/dL Cholesterol 140 <200 mg/dL [facility] Comment:Desirable Cholestero l: less than 200 mg/dLBorderline High Cholesterol: 200-239 mg/dLHigh Cholesterol: greater than 239 mg/dL LDL Cholesterol Calculated 66 <100 mg/dL [facility] Comment:Desirable LDL: less than 100 mg/dLNear Optimal/Above Optimal LDL: 110- 129 mg/dLBorderline High LDL: 130-159 mg/dLHigh LDL: 160-189 mg/dLVery High LDL: greater than or equal to 190 mg/dL HDL Cholesterol 64 >40 mg/dL [facility] Comment:Desirable HDL: great er than 40 mg/dL Note: This HDL assay may give artificially low results in patients with liver disease. Blood Venous blood specimen / Unknown 06/07/2024 12:35 PM EDT 06/07/2024 1:15 PM EDT Arianna Wellington GREENHOUSE OR NURSERY TRANSPLANTER LAB BLOOD ORDERABLES Final Resu lt [facility] [address] [place], [place] [phone] * ALBUMIN, RANDOM URINE W/CREATININE (12/21/2021 10:59 AM EST) Microalbumin Urine 1.4 See Note: mg/dL [facility] Comment: Reference Range: ?? Reference [...] Creatinine, Urine 132 20 - 275 mg/dL [facility] 12/21/2021 10:5 9 AM EST us Kevin Hester MD LAB URINE ORDERABLES Final R esult [facility] [address] from Last 3 Months or Most Recently Relevant to Health Maintenance Insurance [employer] MEDICARE REPLACEMENT Care Teams Equip Maint Eng Relationship Specialty Start Date End Date Name, MD Jules [address] [place] [address] PCP - General Internal Medicine 06/18/24 Francoise Dial PharmD [address] [place] [address] Pharmacist Internal Medicine 05/21/24
--- OUTSIDE RECORDS SUMMARY | 2025-02-20 09:36 | XMS_ITS | Clinical Summary ---
Author Organization [facility] Address [address] [place] [address] Care Team Providers Care Stripper Color Name Role Phone Unavailable Primary Care Provider [...] Influencers of Health Screening 09/18/2022 COVID-19 Vaccine (1 - 2023-2 5 season) 2024 RSV Immunization Adult Patie nts (1 - 1-dose 75+ series) 2025 Influenza Vaccine (Season Ended) 2025 HIB Vaccines Aged Out No longer [...] age to complete this topic Meningococcal B Vaccine Aged Out No l onger eligible based on patient's age to complete this topic RSV Immunization Patients Un jordan 20 months Aged Out No longer eligible b ased on patient's age to complete this topic Varicella Vaccines Aged Out No longer eligible based on patient's age to complete this topic
--- OUTSIDE RECORDS SUMMARY | 2025-02-20 09:36 | XMS_ITS | Encounter Summary ---
Author Organization [employer] Address [address] [facility] [address] [place] [address] Care Team Providers Care Custom Motorcycle Painter Name Role Phone Arianna Wellington Primary Care Provider [phone] Francoise Dial PharmD Unavailable [phone] NameJules MD Primary Care Provider [phone] Reason for Visit * Reason Comments Med Refill Encounter Details Date Type Department Care Team (Late st Contact Info) Description 10/14/2023 Refill [facility] [address] [place] [address] Arianna Wellington FNP [address] [place] [address] Current mild episode of major depressive disorder, [...] is your housing situation today? I have larisamychal moore 08/02/[address] you [...] Description 02/24/2025 11:00 AM EDT Medication Management [facility] [address] [place] [address] Francoise Dial PharmD [address] [place] [address] 05/07/2025 2:00 PM EDT Office Visit [facility] [address] [place] [address] Britt Perkins MD [address] [place] [address] 05/14/2025 11:00 AM EDT Office Visit [facility] [address] [place] [address] Allyson Epps, OD [address] [place] [address] documented as of this encounter Goals Goal Patient Goal Type Associated Problems Recent Progress Patient-Stated? Author Blood Pressure < 140/90 Blood Pressure 120/62(2024 11:01 AM EDT) Colt Bates Hemoglobin A1c < 7.5 Result Component 8.2( [...] documented as of this encounter Care Teams Custom Motorcycle Painter Relationship Specialty Start Date End Date Arianna Wellington FNP [address] [place] [address] PCP - General Family Medicine 03/20/23 06/17/24 Name, MD Jules [address] [place] [address] PCP - General Internal Medicine 06/18/24 Francoise Dial PharmD [address] [place] [phone] Pharmacist Internal Medicine 05/21/24 documented as of this encounter
--- OUTSIDE RECORDS SUMMARY | 2025-02-20 09:36 | XMS_ITS | Encounter Summary ---
Author Organization [employer] Address [address] [facility] [address] [place] [address] Care Team Providers Care Tube Man Name Role Phone Arianna Wellington Primary Care Provider [phone] Francoise Dial PharmD Unavailable [phone] Name, Jules GABRIEL Primary Care Provider [phone] Reason for Visit * Reason Onset Date Comments Other 03/20/2023 Encounter Details Date Type Department Care Team (Late Contact Info) Description 03/20/2023 Telephone [facility]INE [address] [place] [address] [facility] [address] [place] [address] Other Social History Tobacco Use Types Packs/Day [...] Description 02/24/2025 11:00 AM EDT Medication Management [facility] [address] [place] [address] Francoise Dial PharmD [address] [place] [address] 05/07/2025 2:00 PM EDT Office Visit [facility] [address] [place] [address] Britt Perkins MD [address] [place] [address] 05/14/2025 11:00 AM EDT Office Visit [facility] OPTOMETRY [address] [place] [address] Allyson Epps, OD [address] [place] [address] documented as of this encounter Visit Diagnoses Diagnosis Type 2 diabetes mellitus with other specified complication, unspecified whether fpc insulin use ([facility]) documented in this encounter Care Teams Tube Man Relationship Specialty Start Date End Date Arianna Wellington FNP [address] [place] [address] PCP - General Family Medicine 03/20/23 06/17/24 Jules Landis MD [address] [place] [address] PCP - General Internal Medicine 06/18/24 Francoise Dial PharmD [address] [place] [address] Pharmacist Internal Medicine 05/21/24 documented as of this encounter
--- OUTSIDE RECORDS SUMMARY | 2025-02-20 09:36 | XMS_ITS | Encounter Summary ---
Author Organization [employer] Address [address] [facility] [address] [address] Care Team Providers Care Marketing Finance Manager Name Role Phone Arianna Wellington Primary Care Provider [phone] Francoise Dial PharmD Unavailable [phone] Name, Jules GABRIEL Primary Care Provider [phone] Encounter Details Date Type Department Care Team ([facility] st Contact Info) Description 09/25/2023 Orders Only [facility] MED & PEDS [address] [place] [address] Arianna Wellington FNP [address] [place] [address] Social History Tobacco Use Types Packs/Day Years [...] Description 02/24/2025 11:00 AM EDT Medication Management [facility] MED[facility]INE [address] [place] [address] Francoise Dial, PharmD [address] [place] [address] 05/07/2025 2:00 PM EDT Office Visit [facility] MEDICINE [address] [place] [address] Britt Perkins MD [address] [place] [address] 05/14/2025 11:00 AM EDT Office Visit [facility] OPTOMETRY [address] [place] [address] Allyson Epps, OD [address] [place] [address] documented as of this encounter Goals Goal [...] documented as of this encounter Care Teams Marketing Finance Manager Relationship Specialty Start Date End Date Arianna Wellington FNP [address] [place] [address] PCP - General Family Medicine 03/20/23 06/17/24 Jules Landis MD [address] [place] [address] PCP - General Internal Medicine 06/18/24 Francoise Dial PharmD [address] [place] [address] Pharmacist Internal Medicine 05/21/24 documented as of this encounter
--- OUTSIDE RECORDS SUMMARY | 2025-02-20 09:36 | XMS_ITS | Encounter Summary ---
Author Organization [employer] Address [address] [facility] [address] [address] Care Team Providers Care Coil Winding Supervisor Name Role Phone Arianna Wellington Primary Care Provider [phone] Francoise Dial PharmD Unavailable [phone] Name, Jules GABRIEL Primary Care Provider [phone] Encounter Details Date Type Department Care Team ([facility] st Contact Info) Description 08/25/2023 Orders Only [facility] CH[facility] MED & PEDS [address] [place] [address] Arianna Wellington FNP [address] [place] [address] Social History Tobacco Use Types Packs/Day Years [...] Description 02/24/2025 11:00 AM EDT Medication Management [facility] MEDICINE [address] [place] [address] Francoise Dial, PharmD [address] [place] [address] 05/07/2025 2:00 PM EDT Office Visit [facility] MEDICINE [address] [place] [address] Britt Perkins MD [address] [place] [address] 05/14/2025 11:00 AM EDT Office Visit [facility] OPTOMETRY [address] [place] [address] Allyson Epps, OD [address] [place] [address] documented as of this encounter Goals Goal [...] documented as of this encounter Care Teams Coil Winding Supervisor Relationship Specialty Start Date End Date Arianna Wellington FNP [address] [place] [address] PCP - General Family Medicine 03/20/23 06/17/24 Jules Landis MD [address] [place] [address] PCP - General Internal Medicine 06/18/24 Francoise Dial PharmD 230 [place] [address] Pharmacist Internal Medicine 05/21/24 documented as of this encounter
--- OUTSIDE RECORDS SUMMARY | 2025-02-20 09:36 | XMS_ITS | Encounter Summary ---
Author Organization [employer] Address [address] [facility] [address] [address] Care Team Providers Care Review Scheduling Coordinator Name Role Phone Arianna Wellington Primary Care Provider [phone] Francoise Dial PharmD Unavailable [phone] Name, Jules GABRIEL Primary Care Provider [phone] Reason for Visit * Reason Onset Date Comments medical clearance 01/30/2024 Encounter Details Date Type Department Care Team (Late st Contact Info) Description 01/30/2024 Telephone [facility] MEDICINE [address] [place], [place] [phone] Arianna Wellington FNP [address] [place], [place] [phone] medical clearance Social History Tobacco Use Types [...] 3:29 PM EDT Tc from [place] with [facility] pain management requesting medical clearance to stop aspirin (Aspirin AdultLow Strength) 81 MG EC tablet 7 days prior to procedure scheduled on 02/12. Please contact marina at [phone] documented in this encounter Plan of Treatment Upcoming Encounters Date Type Department Care Team ([facility] st Contact Info) Description 02/24/2025 11:00 AM EDT Medication Management [facility] MEDICINE [address] [place] [address] Francoise Dial, PharmD [address] [place] [address] 05/07/2025 2:00 PM EDT Office Visit [facility] MEDICINE [address] [place] [address] Britt Perkins MD [address] [place] [address] 05/14/2025 11:00 AM EDT Office Visit [facility] OPTOMETRY [address] [place] [address] Allyson Epps OD [address] [place] [address] documented as of this encounter Goals Goal [...] documented as of this encounter Care Teams Review Scheduling Coordinator Relationship Specialty Start Date End Date Arianna Wellington FNP [address] [place] [address] PCP - General Family Medicine 03/20/23 06/17/24 Name, MD Jules [address] [place] [address] PCP - General Internal Medicine 06/18/24 Francoise Dial PharmD [address] [place] [address] Pharmacist Internal Medicine 05/21/24 documented as of this encounter
== END 2025-02-20 11:35 | disposition home or self-care (01) ==
LOC: HO.HOS 09:07
PROVIDERS: PCP Internal Medicine Geriatric Medicine; Visit Provider Physical Medicine & Rehabilitation
DX: M54.50 Low back pain, unspecified (principal); G89.29 Other chronic pain; M43.16 Spondylolisthesis, lumbar region; M41.20 Other idiopathic scoliosis, site unspecified
CPT/HCPCS: 99214

== ENCOUNTER 2025-02-20 09:06 | Outpatient (REF) | payer MEDICARE, SELFPAY ==
--- NOTE | ~2025-02-20 | XR_ITS ---
EXAMINATION: XR LUMBOSACRAL SPINE CLINICAL INFORMATION: M54.9 - Dorsalgia, unspecified COMPARISON: 01/04/2024. TECHNIQUE: Three views of the lumbosacral spine. FINDINGS: There is a moderate to severe levoconvex scoliosis with a rotatory component, apex at L3, with estimated Herman angle of 46 degrees. There is a normal lordosis. There is a 3 mm degenerative retrolisthesis of L1 on L2. There is a 4 mm degenerative appearing anterolisthesis of L3 on L4, and 4 mm anterolisthesis L4 on L5. There is a 10 mm anterolisthesis of L5 on S1. There are no compression deformities, fractures, or suspicious bone lesions. Advanced degenerative disc changes at all levels. Advanced degenerative right greater than left facet changes throughout. Probable pars defects at L5 although difficult to visualize. XR/XR lumbar spine 2-3V IMPRESSION: 1. Moderate to severe levoconvex scoliosis, apex at L3, with estimated Herman angle of 46 degrees. There is a rotatory component. 2. Severe multilevel degenerative lumbar spondylosis. 3. No compression deformities or acute bony abnormalities. 4. 10 mm grade 1 spondylolisthesis L5-S1. 5. Overall no significant changes from 01/04/2024. Electronically signed by: Jake West MD 02/20/2025 10:33 AM EDT
--- NOTE | ~2025-02-20 | XR_ITS ---
EXAMINATION: XR THORACIC SPINE CLINICAL INFORMATION: M54.9 - Dorsalgia, unspecified COMPARISON: None available. TECHNIQUE: 3 views of the thoracic spine were obtained. FINDINGS: There is an S-shaped thoracolumbar scoliosis, with the primary thoracic component convex to the right, apex at T11. Maximal Herman angle estimated at 32 degrees. There is an associated rotatory component with a compensatory levoconvex lumbar scoliosis. There is diffuse osteopenia. There are no compression deformities or acute fractures identified. No bone lesions. There is normal sagittal alignment without subluxation. Moderate multilevel degenerative disc disease present, most significant in the mid and inferior thoracic spine. The imaged lungs, mediastinal contents, and soft tissues are grossly normal. XR/XR thoracic spine 2V IMPRESSION: 1. S-shaped thoracolumbar scoliosis, with thoracic component convex to the right, apex at T11. Maximal Herman angle estimated at 32 degrees. 2. There is diffuse osteopenia with diffuse degenerative disc changes. 3. There are no acute bony abnormalities or compression deformities. Electronically signed by: Jake West MD 02/20/2025 10:22 AM EDT
--- OUTSIDE RECORDS SUMMARY | 2025-02-20 10:20 | XMS_ITS | Encounter Summary ---
Author Organization [employer] Address [address] [facility] [address] [address] Care Team Providers Care Exploration Geologist Name Role Phone Arianna Wellington Primary Care Provider [phone] Francoise Dial PharmD Unavailable [phone] NameJules MD Primary Care Provider [phone] Reason for Visit * Reason Comments Med Refill Encounter Details Date Type Department Care Team (Late st Contact Info) Description 10/14/2023 Refill [facility] MEDICINE [address] [place] [address] Arianna Wellington FNP [address] [place] [address] Current mild episode of major depressive disorder, [...] Description 02/24/2025 11:00 AM EDT Medication Management [facility] [address] [place] [address] Francoise Dial PharmD [address] [place] [address] 05/07/2025 2:00 PM EDT Office Visit [facility] [address] [place] [address] Britt Perkins MD [address] [place] [address] 05/14/2025 11:00 AM EDT Office Visit [facility] OPTOMETRY [address] [place] [address] Allyson Epps, OD [address] [place] [address] documented as of this encounter Goals Goal [...] documented as of this encounter Care Teams Exploration Geologist Relationship Specialty Start Date End Date Arianna Wellington FNP [address] [place] [address] PCP - General Family Medicine 03/20/23 06/17/24 Name, MD Jules [address] [place] [address] PCP - General Internal Medicine 06/18/24 Francoise Dial PharmD [address] [place] [address] Pharmacist Internal Medicine 05/21/24 documented as of this encounter
--- OUTSIDE RECORDS SUMMARY | 2025-02-20 10:20 | XMS_ITS | Encounter Summary ---
Author Organization [employer] Address [address] [facility] [address] [address] Care Team Providers Care Distribution Transformer Assembler Name Role Phone Arianna Wellington Primary Care Provider [phone] Francoise Dial PharmD Unavailable [phone] Name, Jules GABRIEL Primary Care Provider [phone] Encounter Details Date Type Department Care Team ([facility] st Contact Info) Description 09/25/2023 Orders Only [facility] CH[facility] MED & PEDS [address] [place] [address] Arianna Wellington FNP [address] [place] [address] Social History Tobacco Use Types Packs/Day Years [...] Description 02/24/2025 11:00 AM EDT Medication Management [facility] MEDICINE [address] [place] [address] Francoise Dial, PharmD [address] [place] [address] 05/07/2025 2:00 PM EDT Office Visit [facility] MEDICINE [address] [place] [address] Britt Perkins MD [address] [place] [address] 05/14/2025 11:00 AM EDT Office Visit [facility] OPTOMETRY [address] [place] [address] Allyson Epps, OD [address] [place] [address] documented as of this encounter Goals Goal [...] documented as of this encounter Care Teams Distribution Transformer Assembler Relationship Specialty Start Date End Date Arianna Wellington FNP [address] [place] [address] PCP - General Family Medicine 03/20/23 06/17/24 Jules Landis MD [address] [place] [address] PCP - General Internal Medicine 06/18/24 Francoise Dial PharmD [address] [place] [address] Pharmacist Internal Medicine 05/21/24 documented as of this encounter
--- OUTSIDE RECORDS SUMMARY | 2025-02-20 10:20 | XMS_ITS | Encounter Summary ---
Author Organization [employer] Address [address] [facility] [address] [address] Care Team Providers Care Courtesy Booth Cashier Name Role Phone Arianna Wellington Primary Care Provider [phone] Francoise Dial PharmD Unavailable [phone] Name, Jules GABRIEL Primary Care Provider [phone] Reason for Visit * Reason Onset Date Comments medical clearance 01/30/2024 Encounter Details Date Type Department Care Team (Late st Contact Info) Description 01/30/2024 Telephone [facility] MEDICINE [address] [place], [place] [phone] Arianna Wellington FNP [address] [place], [place] [phone] medical clearance Social History Tobacco Use Types [...] 3:29 PM EDT Tc from [place] with [facility] pain management requesting medical clearance to stop aspirin (Aspirin AdultLow Strength) 81 MG EC tablet 7 days prior to procedure scheduled on 02/12. Please contact marina at [phone] documented in this encounter Plan of Treatment Upcoming Encounters Date Type Department Care Team ([facility] st Contact Info) Description 02/24/2025 11:00 AM EDT Medication Management [facility] MEDICINE [address] [place] [address] Francoise Dial, PharmD [address] [place] [address] 05/07/2025 2:00 PM EDT Office Visit [facility] MEDICINE [address] [place] [address] Britt Perkins MD [address] [place] [address] 05/14/2025 11:00 AM EDT Office Visit [facility] OPTOMETRY [address] [place] [address] Allyson Epps OD [address] [place] [address] documented as of this encounter Goals Goal [...] documented as of this encounter Care Teams Courtesy Booth Cashier Relationship Specialty Start Date End Date Arianna Wellington FNP [address] [place] [address] PCP - General Family Medicine 03/20/23 06/17/24 Name, MD Jules [address] [place] [address] PCP - General Internal Medicine 06/18/24 Francoise Dial PharmD [address] [place] [address] Pharmacist Internal Medicine 05/21/24 documented as of this encounter
--- OUTSIDE RECORDS SUMMARY | 2025-02-20 10:20 | XMS_ITS | Encounter Summary ---
Author Organization [employer] Address [address] [facility] [address] [address] Care Team Providers Care Military Communications Specialist Name Role Phone Arianna Wellington Primary Care Provider [phone] Francoise Dial PharmD Unavailable [phone] Name, Jules GABRIEL Primary Care Provider [phone] Encounter Details Date Type Department Care Team ([facility] st Contact Info) Description 08/25/2023 Orders Only [facility] CH[facility] MED & PEDS [address] [place] [address] Arianna Wellington FNP [address] [place] [address] Social History Tobacco Use Types Packs/Day Years [...] Description 02/24/2025 11:00 AM EDT Medication Management [facility] MEDICINE [address] [place] [address] Francoise Dial, PharmD [address] [place] [address] 05/07/2025 2:00 PM EDT Office Visit [facility] MEDICINE [address] [place] [address] Britt Perkins MD [address] [place] [address] 05/14/2025 11:00 AM EDT Office Visit [facility] OPTOMETRY [address] [place] [address] Allyson Epps, OD [address] [place] [address] documented as of this encounter Goals Goal [...] documented as of this encounter Care Teams Military Communications Specialist Relationship Specialty Start Date End Date Arianna Wellington FNP [address] [place] [address] PCP - General Family Medicine 03/20/23 06/17/24 Jules Landis MD [address] [place] [address] PCP - General Internal Medicine 06/18/24 Francoise Dial PharmD [address] [place] [address] Pharmacist Internal Medicine 05/21/24 documented as of this encounter
--- OUTSIDE RECORDS SUMMARY | 2025-02-20 10:20 | XMS_ITS | Clinical Summary ---
Author Organization [facility] ity Address [address] [place] [address] Care Team Providers Care Professor Of Poultry Science Name Role Phone Unavailable Primary Care Provider [...]
--- OUTSIDE RECORDS SUMMARY | 2025-02-20 10:20 | XMS_ITS | Clinical Summary ---
Author Organization [employer] Address [address] [facility] [address] [place] [address] Care Team Providers Care Price Changer Name Role Phone Francoise Dial PharmD Unavailable [phone] Name, Jules GABRIEL Primary Care Provider [phone] Allergies Active Allergy Reactions Criticality Noted Date [...] 05/22/20 23 Active Lancets (OneTouch Delica Plus [id number]) miscIndication s:Type 2 diabetes mellitus without complication, unspecified whether fdc insulin use ([facility]) USE DIRECTED TO TEST BLOOD SUGAR FOUR TIMES DAILY 100 each 11/07/19 24 Active glucose blood (FreeStyle Precision Miguelito Test) test stripIndicatio ns:Type 2 diabetes mellitus with other specified complication, unspecified whether terminal supervisor insulin use ([facility]) Test blood sugar q 8 hours 100 each 12 11/29/19 24 Active Blood Pressure Monitor kitIndications :Elevated blood pressure reading 1 kit 2 times daily. 1 kit 11/29/19 24 Active docusate sodium (Colace) 100 MG capsule Take 1 tab po bid prn constipation 60 capsule 3 11/29/19 24 Active Additional Information Patient not taking.Reported on 01/20/2025 Continuous Blood Gluc Correspondence Review Clerk (FreeStyle Elizabeth 2 [place]) device USE DIRECTED TO TEST BLOOD SUGAR EVERY 8 HOURS 12/06/19 Active Alcohol Swabs (Alcohol Prep) 70 % padsIndication s:Type 2 diabetes mellitus without complication, unspecified whether fdc insulin use (CMS/HCC) USE DIRECTED TO TEST [...] mellitus with other specified complication, unspecified whether fdc insulin use ([facility]) TAKE 2 TABLETS BY MOUTH [...] mellitus with other specified complication, unspecified whether fdc insulin use ([facility]) USE DIRECTED TO TEST BLOOD [...] complication, with long-term current use of insulin ([facility]) Inject 3 mg under the [...] too much, and Currently in MAT at [facility], denies cravings has been able to maintain [...] Health Integration Plan Internal Follow up with [facility] External OP therapy referral and OP psychiatry Referral Patient Self Plan Patient to utilize skills provided in intervention , Patient to reach out to [facility] team as needed, Comply with [...] Overview (09/18/2024): 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 Cannot find details of treatment VL negaive 2021. Had Hep A and B vaccines in the past Hypertension 04/06/2012 Tobacco dependence syndrome 04/06/2012 Mild nonproliferative diabetic retinopathy 12/18 Allergic rhinitis 03/07/2011 Diabetes mellitus type 2, uncomplicated 03/07/20 08 Encounters Date Type Department Care Team Description 02/13/2025 Telephone [facility] MEDICINE [address] [place] [address] Name, MD Jules TP request 02/04/2025 Orders Only [facility] MEDICINE [address] [place] [address] NameJules MD Hypersomnia (Primary Dx) 01/31/2025 Telephone [facility] MEDICINE [address] [place] [address] NameJules MD Medication Problem (Jardiance 25mg); Referral 01/31/2025 Telephone [facility] [place] [address] Jules Landis MD 01/31/2025 Telephone [facility] [place] [address] Francoise Dial PharmLaurita transfer patient (Patient is requesting transfer patient appt , patient spoke with pharmacist Francoise Dial and explained her concerns. Patient stated pcp doesn't hear what she haves to say regarding her health. ) 01/31/2025 Telephone [facility] [place] [address] Troy Murphy MA April recalls 01/24/2025 Refill [facility] [place] [address] Francoise Dial PharmD 01/20/2025 Telephone [facility] [place] [address] Francoise Dial PharmD 01/20/2025 Travel 01/06/2025 Telephone [facility] [place] [address] Jules Landis MD Prior Auth Prescription (Methocarbamol) 01/03/2025 9:15 AM EDT Office Visit [facility] [place] [address] Jules Landis MD Type 2 diabetes mellitus without complication, with long-term current use of insulin ([facility]) (Primary Dx); Chronic bilateral low back pain without sciatica 01/03/2025 Travel 01/02/2025 Telephone [facility] [place] [address] Troy Murphy MA chart prep 12/30/2024 Refill [facility] [place] [address] Arianna Wellington FNP Type 2 diabetes mellitus with other specified complication, unspecified whether fdc insulin use (CMS/HCC) 12/24/2024 Orders Only [facility] [place] [address] Arianna Wellington FNP from Last 3 Months [...] Description 02/24/2025 11:00 AM EDT Medication Management [facility] MEDICINE [address] [place] [address] Francoise Dial, PharmD [address] [place] [address] 05/07/2025 2:00 PM EDT Office Visit [facility] MEDICINE [address] [place] [address] Britt Perkins MD [address] [place] [address] 05/14/2025 11:00 AM EDT Office Visit [facility] OPTOMETRY [address] [place] [address] [place], Allyson, OD [address] [place] [address] Health Maintenance Due Date Last Done Comments [...] complication, with long-term current use of insulin ([facility]) POCT GLUCOSE Routine 01/03/2025 9:22 AM EDT Type 2 diabetes mellitus without complication, with long-term current use of insulin ([facility]) BI MAMMOGRAM SCREENING TOMOSYNTHESIS BILATERAL Routine 12/24/2024 9:15 AM EDT THINPREP IMAGING PAP AND HPV MRNA E6/E7 Routine 07/03/2024 9:54 AM EDT LIPID PANEL, STANDARD Routine 06/07/2024 12:35 PM EDT Type 2 diabetes mellitus without complication, with long-term current use of insulin ([facility]) ALBUMIN, RANDOM URINE W/CREATININE Routine [...] EDT Narrative 12/31/2024 4:39 PM EDT ? [facility] ? [address] ?[place] [address] ? Mammography Report ? Signed ? Patient: Colin,Eva ?MR#: [id number] ? : 1950 ?Acct:[id number] ? Age/Sex: 74 / F ?ADM Date: 12/24/24 ? Loc: HO.MAMMO ? Attending Dr: Arianna Wellington SENIOR ORACLE DATABASE ADMINISTRATOR ? Ordering Physician: Arianna Wellington NP ?Results: 2Benign ?? Findings ? Date of Service: 12/24/24 ?Follow Up: 1 Year From Orig ?? inal Mammogram ? Procedure(s): MM tomosynthesis screening BI ?? Accession Number(s): [id number] ? cc: Arianna Wellington NP; Name,Jules GABRIEL [...] DD/ 0915 ? TD/TT: 12/24/24 0945 ? Embroidery Finisher: ? Procedure Note Danica, Ubaldo - 12/31/2024 [place] [facility] [address] [place] [address] Mammography Report Signed Patient: Oly Colin#: [id number] : 1950Acct:[id number] Age/Sex: 74 / FADM Date: 12/24/24 Loc: HO.MAMMO Attending Dr: Arianna Wellington NP Ordering Physician: Arianna Wellington NPResults: 2Benign Findings Date of Service: 12/24/24Follow Up: 1 Year From Orig ina Mammogram Procedure(s): MM tomosynthesis screening BI Accession Number(s): [id number] cc: Arianna Wellington SENIOR ORACLE DATABASE ADMINISTRATOR; Name,Jules GABRIEL EXAMINATION: MM SCREENING DIGITAL BREAST [...] OV> 12/31/24 1636 DD/ TD/TT: 12/24/24 0945 Embroidery Finisher: Arianna Wellington TELEVISION ENGINEERING TEACHER IMG BI PROCEDURES Final Result * ThinPrep Imaging Pap and HPV mRNA E6/E7 (07/03/2024 9:54 AM EDT) HPV nRNA E6/E7 Not Detected Not Detected [facility] Comment:Methodology: Transcr iption-Mediated AmplificationThis assay detects E6/E7 viral messenger RNA (mRNA) from 14high-risk HPV types (16,18,31,33,35,39,45,51,52,56,58,59,66,68).Cervical sources are required for HPV testing.If a vaginal source from a patient who has had atotal hysterectomy with removal of cervix wassubmitted, please contact the testing laboratoryfor alternative testing options.For additional information, please refer tohttp://education.[employer]/faq/CFG833t6(This link if provided for information/educational purposes only.)THIS TEST WAS PERFORMED AT:[facility] [place] [id number] LUIS MARTÍNEZ MD SOURCE: SEE NOTE [facility] Comment:None given Report Status: TNP [facility] Clinical Information: SEE NOTE [facility] Comment:None given LMP: SEE NOTE [facility] Comment:NONE GIVEN Prev. PAP: SEE NOTE [facility] Comment:NONE GIVEN Prev. BX: SEE NOTE [facility] Comment:NONE GIVEN Statement Of Adequacy: SEE NOTE [facility] Comment:Satisfactory for galileo luation.Endocervical/transformation zone componentpresent. General Categorization: [facility] Interpretation/Result: SEE NOTE [facility] Comment:Cytology Results: Ne gative for intraepitheliallesion or malignancy. Cytology Comment SEE NOTE [facility] Comment:This Pap test has be en evaluated with computerassisted technology. President Educational Institution: SEE NOTE [facility] Comment:CMG, CT(ASCP)CT scre ening location: [place] [address] Review President Educational Institution: [facility] Pathologist [facility] PAP Infection [facility] See Note SEE NOTE [facility] Comment:EXPLANATORY NOTE:The Pap is a screening test for cervical cancer. It isnot a diagnostic test and is subject to false negativeand false positive results. It is most reliable when asatisfactory sample, regularly obtained, is submittedwith relevant clinical findings and history, and whenthe Pap result is evaluated along with historic andcurrent clinical information. 07/03/2024 9:54 AM EDT 07/03/2024 6:04 PM EDT Narrative [facility] - 07/09/2024 2:51 PM EDT SEE SCANNED RESULTS IN EMR us Cassidy [facility] LAB PATHOLOGY ORDERABLES Final Result [facility] [address] [place] [address] [phone] * Lipid Panel, Standard (06/07/2024 12:35 PM EDT) Triglycerides 53 <150 mg/dL [facility] Comment:Desirable Triglyceri de: less than 150 mg/dLBorderline High Triglyceride 150-199 mg/dLHigh Triglyceride: 200-499 mg/dLVery High Triglyceride: greater than or equal to 5OO mg/dL Cholesterol 140 <200 mg/dL [facility] Comment:Desirable Cholestero l: less than 200 mg/dLBorderline High Cholesterol: 200-239 mg/dLHigh Cholesterol: greater than 239 mg/dL LDL Cholesterol Calculated 66 <100 mg/dL [facility] Comment:Desirable LDL: less than 100 mg/dLNear Optimal/Above Optimal LDL: 110- 129 mg/dLBorderline High LDL: 130-159 mg/dLHigh LDL: 160-189 mg/dLVery High LDL: greater than or equal to 190 mg/dL HDL Cholesterol 64 >40 mg/dL [facility] Comment:Desirable HDL: great er than 40 mg/dL Note: This HDL assay may give artificially low results in patients with liver disease. Blood Venous blood specimen / Unknown 06/07/2024 12:35 PM EDT 06/07/2024 1:15 PM EDT Arianna Wellington TELEVISION ENGINEERING TEACHER LAB BLOOD ORDERABLES Final Resu lt [facility] [address], [place] [phone] * ALBUMIN, RANDOM URINE W/CREATININE (12/21/2021 [...] MD LAB URINE ORDERABLES Final R esult [facility] [address] from Last 3 Months or Most Recently Relevant to Health Maintenance Insurance [employer] MED[employer]ARE REPLACEMENT Care Teams Price Changer Relationship Specialty Start Date End Date Name, MD Jules [address] [place] [address] PCP - General Internal Medicine 06/18/24 Francoise Dial PharmD [address] [place] [address] Pharmacist Internal Medicine 05/21/24
--- OUTSIDE RECORDS SUMMARY | 2025-02-20 10:21 | XMS_ITS | Encounter Summary ---
Author Organization [employer] Address [address] [facility] [address] [place] [address] Care Team Providers Care Histology Supervisor Name Role Phone Arianna Wellington Primary Care Provider [phone] Francoise Dial PharmD Unavailable [phone] Name, Jules GABRIEL Primary Care Provider [phone] Encounter Details Date Type Department Care Team ([facility] st Contact Info) Description 01/10/[address] [facility] MED & PEDS [address] [place] [address] Arianna Wellington FNP [address] [place] [address] Social History Tobacco Use Types Packs/Day Years [...] Description 02/24/2025 11:00 AM EDT Medication Management [facility] MEDICINE [address] [place] [address] Francoise Dial PharmD [address] [place] [address] 05/07/2025 2:00 PM EDT Office Visit [facility] MEDICINE [address] [place] [address] Britt Perkins MD [address] [place] [address] 05/14/2025 11:00 AM EDT Office Visit [facility] OPTOMETRY [address] [place] [address] Allyson Epps, OD [address] [place] [address] documented as of this encounter Goals Goal [...] documented as of this encounter Care Teams Histology Supervisor Relationship Specialty Start Date End Date Arianna Wellington FNP [address] [place] [address] PCP - General Family Medicine 03/20/23 06/17/24 Name, MD Jules [address] [place] [address] PCP - General Internal Medicine 06/18/24 Francoise Dial PharmD [address] [place] [address] Pharmacist Internal Medicine 05/21/24 documented as of this encounter
--- OUTSIDE RECORDS SUMMARY | 2025-02-20 10:21 | XMS_ITS | Encounter Summary ---
Author Organization [employer] Address [address] [facility] [address] [place] [address] Care Team Providers Care Hod Carrier Name Role Phone Arianna Wellington Primary Care Provider [phone] Francoise Dial PharmD Unavailable [phone] Name, Jules GABRIEL Primary Care Provider [phone] Reason for Visit * Reason Onset Date Comments Other 03/20/2023 Encounter Details Date Type Department Care Team (Late Contact Info) Description 03/20/2023 Telephone [facility] MEDICINE [address] [place] [address] [facility] [address] [place] [address] Other Social History Tobacco Use Types Packs/Day [...] Description 02/24/2025 11:00 AM EDT Medication Management [facility] MEDICINE [address] [place] [address] Francoise Dial PharmD [address] [place] [address] 05/07/2025 2:00 PM EDT Office Visit [facility] MEDICINE [address] [place] [address] Britt Perkins MD [address] [place] [address] 05/14/2025 11:00 AM EDT Office Visit [facility] OPTOMETRY [address] [place] [address] Allyson Epps, OD [address] [place] [address] documented as of this encounter Visit Diagnoses Diagnosis Type 2 diabetes mellitus with other specified complication, unspecified whether care home insulin use ([facility]) documented in this encounter Care Teams Hod Carrier Relationship Specialty Start Date End Date Arianna Wellington FNP [address] [place] [address] PCP - General Family Medicine 03/20/23 06/17/24 Jules Landis MD [address] [place] [address] PCP - General Internal Medicine 06/18/24 Francoise Dial PharmD [address] [place] [address] Pharmacist Internal Medicine 05/21/24 documented as of this encounter
== END 2025-02-20 09:07 | disposition home or self-care (01) ==
LOC: HO.HOSX 09:06
PROVIDERS: PCP Internal Medicine Geriatric Medicine; Visit Provider Physical Medicine & Rehabilitation
DX: D17.1 Benign lipomatous neoplasm of skin and subcutaneous tissue of trunk (principal); M54.50 Low back pain, unspecified; G89.29 Other chronic pain; M79.605 Pain in left leg; M79.604 Pain in right leg; M43.16 Spondylolisthesis, lumbar region; M41.20 Other idiopathic scoliosis, site unspecified
CPT/HCPCS: 72070; 72100; 99212

== ENCOUNTER → 2025-02-20 09:46 | Outpatient (BNV) | payer MEDICARE, SELFPAY | PROVIDERS: PCP Internal Medicine Geriatric Medicine; Visit Provider Radiology Diagnostic Radiology | DX: M47.816 Spondylosis without myelopathy or radiculopathy, lumbar region (principal); M41.35 Thoracogenic scoliosis, thoracolumbar region | CPT/HCPCS: 72070; 72100 ==

== ENCOUNTER 2025-04-04 09:51 | Outpatient (AMB) | payer MEDICARE, SELFPAY ==
--- NOTE | 2025-04-04 09:52 | A.OFFVIS_ITS ---
Vital Signs 04/04/25 09:53 Height 5 ft 7 in Weight 132 lb BMI 20.7 Intake Visit Reasons: TEL- chronic back pain, discuss XR Intake Note: Eva is a 75 year old patient who presents via telehealth visit for a follow up of her back pain and to discuss XR from last visit on 02/20/25. Allergies DEVORAH Inhibitors Allergy (Severe, Verified 04/04/25 09:55) congestion lisinopril (LISINOPRIL) Allergy (Severe, Verified 04/04/25 09:55) SEVERE CONGESTION tetracycline (TETRACYCLINE) Allergy (Intermediate, Verified 04/04/25 09:55) LETHARGIC, drowsiness Horse/Equine Containing Products Adverse Reaction (Unknown, Verified 04/04/25 09:55) Unknown pollen Allergy (Intermediate, Uncoded 04/04/25 09:55) runny nose HPI Comments Details: MRI last done 2020 already reported multilevel degenerative changes and severe spinal stenosis. We had agreed on referring him to neuro spine. I do not see official report but I suspect they looked at her films and recommended for injection instead. She had L5-S1 interlaminar epidural injection done by our Pain Management on 01/2024. We have not seen her since then. She says that injection did not work or that she had poor experience because of a brace that was given to her that was so heavy. Not sure what kind of brace it was or who gave it to her. She is not wearing it today. She continues with the same chronic lower back pain. She denies it it radiates. But she mentions that there is a growing muscle not on the left lower back that is causing some kind of throbbing pain for her. She maintains that she does not want to pursue surgery. She is not convinced injections we will work. She mentions that she has transferred to a different primary care physician. She has history of diabetes. She had lost 30 lb recently being on Trulicity. History of substance abuse, on Suboxone currently. [facility] Medical History (Updated 04/04/25 @ 10:03 by Jeannie Mitchell MD) Chronic back pain Lumbar disc herniation Spondylolisthesis, lumbar region Diverticulosis Colon cancer screening DVT (deep venous thrombosis) Hx of opioid abuse Trochanteric bursitis of right hip Lumbar spondylosis Chronic right hip pain Nondependent tobacco use disorder Unspecified pruritic disorder Mild nonproliferative diabetic retinopathy Allergic rhinitis HTN (hypertension) Hepatitis C Diabetes Surgical History Hx of vein stripping (08/09/24) H/O colonoscopy Family History Mother Enlarged heart Father No problems noted. Social History Patient Tobacco Use Status: Former Tobacco user Tobacco use type: Cigarette Cigarettes Per Day: 2 Current occupational status: retired Current occupation: rt hand Physical Exam Vital Signs: BMI result Body Mass Index 20.7 Telehealth Telehealth Telehealth Platform: Telephone Location of provider rendering services: practice address Location of patient: address on file Patient Identification confirmed using: Name, : Yes Telehealth method: voice only (patient could not do video) Patient verbally consented to treatment: Yes Patient verbally consented to billing insurance company: Yes Minutes spent on Phone/Video with Pt.: 15 Results Reviewed Results Reviewed: Ordering Physician: Maria Luz Cho NP Date of Service: 08/09/21 Procedure(s): MR lumbar spine wo con Accession Number(s): [id number] cc: Maria Luz Cho NP~ EXAMINATION: MR LUMBAR SPINE WITHOUT CONTRAST CLINICAL INFORMATION: 71-year-old with chronic low back pain and bilateral leg pain and weakness. Spondylolisthesis, lumbar region. COMPARISON: None TECHNIQUE: MRI of the lumbar spine was obtained using routine sequences without contrast. FINDINGS: Coronal Alignment: Iospihur-yt-qwakru lumbar rotatory levoscoliosis, convex to the left at L2-L3. There is bdgcb-xz-eamc lateral listhesis at L4-L5. There is wxzf-ve-bgdxu lateral listhesis at T12-L1. Sagittal Alignment: There is 5 mm of grade 1 spondylolisthesis at L5-S1, likely degenerative. There is 4 mm of grade 1 degenerative spondylolisthesis at L4-L5, and there is trace rotatory anterolisthesis at L3-L4. There is trace retrolisthesis at T12-L1. Lumbosacral Junction: Normal. Vertebral Bodies: Vertebral body heights are well maintained. No definite compression fractures are identified. Disc Spaces and Endplates: Qluehooq-fa-urgrrl disc space height loss asymmetric to the left at L5-S1 with intradiscal degenerative signal changes with subchondral degenerative changes along the inferior endplate of L5 and mild spondylosis. Mild disc space height loss and disc desiccation at L4-L5 with Schmorl's nodes and mild spondylosis. Mbvq-xm-wziodpfn disc space height loss asymmetric to the right at L3-L4 with disc desiccation and moderate spondylosis. Severe disc space height loss, disc desiccation, Schmorl's nodes, and spondylosis at T12-L1, T11-T12, T10-T11, T9-T10, and T8-T9. Probable intradiscal vacuum disc phenomenon at L4-L5 and L5-S1. Bone Marrow: Type I degenerative marrow signal changes along the endplates at L5-S1 and L2-L3. Conus Medullaris: Terminates at L1-L2. Morphology and signal is normal. Intradural Nerve Roots: Crowding of the intradural nerve roots at L4-L5 and, to a lesser degree, at L3-L4 consistent with multilevel spinal stenosis. L5-S1: Unroofing of the posterior disc margin consistent with grade 1 spondylolisthesis with bilateral paravertebral/posterolateral disc-osteophyte complex and severe bilateral facet arthropathy. There is mild left subarticular recess stenosis with bddtxoutvz-tc-lmik central spinal canal stenosis with possible encroachment on the traversing left S1 nerve root. There is severe left-sided and ndvh-lf-tlzbnhfg right-sided craniocaudal neural foraminal stenosis with left L5 nerve root impingement. L4-L5: Unroofing of the posterior disc margin noted with superimposed disc bulging and a superimposed central to right subarticular extruded disc herniation with mild cephalad migration. Ligamentum flavum thickening and severe bilateral facet arthropathy is noted with severe central spinal canal stenosis and crowding of the intradural nerve roots, with moderate bilateral lateral recess stenosis. There is severe right subarticular recess stenosis, as well, and there is rfke-mp-redekuxc left-sided and ntxqsdna-gy-ryytad right-sided neural foraminal stenosis with right L4 nerve root impingement. L3-L4: Mild disc bulging is noted with a superimposed right central to subarticular and foraminal disc herniation, with flattening of the dural sac asymmetric to the right. There is marked ligamentum flavum thickening, and there is severe right-sided and moderate left-sided facet arthropathy. There is moderate central spinal canal stenosis with crowding of the intradural nerve roots and mild narrowing of the right subarticular recess. There is severe right-sided neural foraminal stenosis with right L3 nerve root impingement. L2-L3: Small left paramedian to foraminal disc protrusion. Mild left-sided and vlskeccm-cz-sasani right-sided facet hypertrophic degenerative change with mild right-sided neural foraminal narrowing without canal stenosis. L1-L2: Slight retrolisthesis is noted with a small right paramedian disc protrusion and moderate bilateral facet arthrosis with lmjw-xg-ywhkifme right-sided neural foraminal stenosis. No spinal canal stenosis. Posterolateral disc-osteophyte complex asymmetric to the right at T12-L1 which is not imaged in the axial plane with moderate bilateral facet arthropathy at this level, with mild left-sided and moderate right-sided neural foraminal stenosis without spinal canal stenosis. Small left paramedian disc protrusion at T11-T12 with moderate left-sided facet arthropathy and moderate left-sided neural foraminal stenosis. There is facet arthropathy, left more than right, at the remaining visualized thoracic levels. Paraspinal/Retroperitoneal: The paravertebral soft tissues are remarkable for mild generalized diffuse posterior paraspinal muscle volume loss. MR/MR lumbar spine wo con IMPRESSION: 1. Fleiqeua-ww-xxywcd rotatory lumbar levoscoliosis, with multilevel lateral subluxations, with grade 1 spondylolisthesis at L4-L5 and L5-S1 and trace retrolisthesis at L1-L2 and T12-L1. 2. Multilevel DDD and spondylosis, as detailed above, with extensive multilevel bilateral facet arthropathy and ligamentum flavum thickening. Multilevel disc bulging and disc herniations are described above, with severe spinal canal stenosis at L4-L5 and moderate spinal canal stenosis at L3-4 with mild spinal canal stenosis at L5-S1. 3. Multilevel bilateral neural foraminal stenosis, most severe on the left at L5-S1 and on the right at L3-L4, bilaterally at L4-L5, right more than left, as detailed above. 4. Multilevel lower thoracic degenerative changes, as discussed above. Ordering Physician: Jeannie Narvaez Date of Service: 02/20/25 Procedure(s): XR thoracic spine 2V Accession Number(s): [id number] cc: Name,Jules GABRIEL; Jeannie Narvaez~ EXAMINATION: XR THORACIC SPINE CLINICAL INFORMATION: M54.9 - Dorsalgia, unspecified COMPARISON: None available. TECHNIQUE: 3 views of the thoracic spine were obtained. FINDINGS: There is an S-shaped thoracolumbar scoliosis, with the primary thoracic component convex to the right, apex at T11. Maximal Herman angle estimated at 32 degrees. There is an associated rotatory component with a compensatory levoconvex lumbar scoliosis. There is diffuse osteopenia. There are no compression deformities or acute fractures identified. No bone lesions. There is normal sagittal alignment without subluxation. Moderate multilevel degenerative disc disease present, most significant in the mid and inferior thoracic spine. The imaged lungs, mediastinal contents, and soft tissues are grossly normal. XR/XR thoracic spine 2V IMPRESSION: 1. S-shaped thoracolumbar scoliosis, with thoracic component convex to the right, apex at T11. Maximal Herman angle estimated at 32 degrees. 2. There is diffuse osteopenia with diffuse degenerative disc changes. 3. There are no acute bony abnormalities or compression deformities. Electronically signed by: Jake West MD 02/20/2025 10:22 AM EDT RP Ordering Physician: Jeannie Narvaez Date of Service: 02/20/25 Procedure(s): XR lumbar spine 2-3V Accession Number(s): [id number] cc: Name,Jules GABRIEL; Jeannie Narvaez~ EXAMINATION: XR LUMBOSACRAL SPINE CLINICAL INFORMATION: M54.9 - Dorsalgia, unspecified COMPARISON: 01/04/2024. TECHNIQUE: Three views of the lumbosacral spine. FINDINGS: There is a moderate to severe levoconvex scoliosis with a rotatory component, apex at L3, with estimated Herman angle of 46 degrees. There is a normal lordosis. There is a 3 mm degenerative retrolisthesis of L1 on L2. There is a 4 mm degenerative appearing anterolisthesis of L3 on L4, and 4 mm anterolisthesis L4 on L5. There is a 10 mm anterolisthesis of L5 on S1. There are no compression deformities, fractures, or suspicious bone lesions. Advanced degenerative disc changes at all levels. Advanced degenerative right greater than left facet changes throughout. Probable pars defects at L5 although difficult to visualize. XR/XR lumbar spine 2-3V IMPRESSION: 1. Moderate to severe levoconvex scoliosis, apex at L3, with estimated Herman angle of 46 degrees. There is a rotatory component. 2. Severe multilevel degenerative lumbar spondylosis. 3. No compression deformities or acute bony abnormalities. 4. 10 mm grade 1 spondylolisthesis L5-S1. 5. Overall no significant changes from 01/04/2024. Electronically signed by: Jake West MD 02/20/2025 10:33 AM EDT RP Assessment & Plan Assessment & Plan (1) Chronic back pain: Code(s): M54.9 - Dorsalgia, unspecified; G89.29 - Other chronic pain Category: Medical Qualifiers: Back pain location: low back pain Back pain laterality: bilateral Sciatica presence: without sciatica Qualified Code(s): M54.50 - Low back pain, unspecified; G89.29 - Other chronic pain (2) Scoliosis (and kyphoscoliosis), idiopathic: Code(s): M41.20 - Other idiopathic scoliosis, site unspecified Category: Medical (3) Lumbar spinal stenosis: Code(s): M48.061 - Spinal stenosis, lumbar region without neurogenic claudication Category: Medical Qualifiers: Neurogenic claudication status: with neurogenic claudication Qualified Code(s): M48.062 - Spinal stenosis, lumbar region with neurogenic claudication Plan Chronic lower back pain that mainly is nonradicular but does reports symptoms that could be claudication (tired legs when walking). Past MRI had shown severe spinal stenosis and grade 1 spondylolisthesis L5-S1, multilevel degenerative changes. Xrays confirm scoliosis with apex most prominent at L3 level towards the left side so suspect that is the reason. I offered referral to neurospine which she declines at this time. She was more concerned with the left sided bump that she showed me last visit. I thought it could be lipoma. Offered referral to surgery for excision but she opts to see her PCP first. She has appointment to see new PCP at [facility] in April. Assessment and plan discussed with patient, and patient was agreeable. All questions were answered thoroughly. Follow up as needed. Jeannie Mitchell MD, BREE Board Certified, [place] [employer] and [employer] (ABPMR) Board Certified, [place] [employer] Electro[employer] (ABEM) Coding Level of Care Code Tele Est Pt Level 3 (80122) Diagnoses Chronic bilateral low back pain without sciatica M54.50; G89.29 Back pain location: low back pain Back pain laterality: bilateral Sciatica presence: without sciatica Scoliosis (and kyphoscoliosis), idiopathic M41.20 Spinal stenosis of lumbar region with neurogenic claudication M48.062 Neurogenic claudication status: with neurogenic claudication
[2025-04-04 09:53] VITALS: BMI 20.7
--- OUTSIDE RECORDS SUMMARY | 2025-04-04 10:07 | XMS_ITS | Clinical Summary ---
Author Organization [facility] ity Address [address] [place] [address] Care Team Providers Care Fire Patrol Name Role Phone Unavailable Primary Care Provider Unavailabl e Social History Tobacco Use Types Packs/Day Years Used Date Smoking Tobacco: Never Assessed Comments Unknown Sex and Gender Information Value Date Recorded Sex Assigned at Not on file Legal Sex Female 9:38 AM EST Gender Identity Not on file Sexual Orientation Not on file Plan of Treatment Health Maintenance Due Date Last Done Comments DTaP,Tdap,and Td Vaccines (1 - Tdap) 1969 Pneumococcal Vaccine: 50+ Ye ars (1 of 1 - PCV) 2000 Zoster Vaccines (1 of 2) 2000 COVID-19 Vaccine ( - 2023-2 5 season) 2024 RSV Immunization [...]
== END 2025-04-04 10:07 | disposition home or self-care (01) ==
LOC: HO.HOS 09:51
PROVIDERS: PCP Internal Medicine Geriatric Medicine; Visit Provider Physical Medicine & Rehabilitation
DX: M54.50 Low back pain, unspecified (principal); G89.29 Other chronic pain; M41.20 Other idiopathic scoliosis, site unspecified; M48.062 Spinal stenosis, lumbar region with neurogenic claudication
CPT/HCPCS: 99213

== ENCOUNTER → 2025-04-04 09:51 | Outpatient (BNVA) | payer MEDICARE, SELFPAY | PROVIDERS: PCP Internal Medicine Geriatric Medicine; Visit Provider Physical Medicine & Rehabilitation ==

== ENCOUNTER 2025-04-07 16:07 | Outpatient (REF) | payer MEDICARE, SELFPAY ==
--- OUTSIDE RECORDS SUMMARY | 2025-04-07 17:30 | XMS_ITS | Clinical Summary ---
Author Organization [facility] ity Address [address] [place] [address] Care Team Providers Care Info Print Press Operator Name Role Phone Unavailable Primary Care Provider [...]
== END 2025-04-07 16:08 | disposition home or self-care (01) ==
LOC: HO.HHCLNP 16:07
PROVIDERS: Visit Provider Internal Medicine
DX: R39.9 Unspecified symptoms and signs involving the genitourinary system (principal)
CPT/HCPCS: 87086

== ENCOUNTER 2025-10-07 15:54 | Outpatient (REF) | payer MEDICARE, SELFPAY ==
--- NOTE | ~2025-10-07 | XR_ITS ---
EXAMINATION: XR ELBOW, RIGHT CLINICAL INFORMATION: right elbow pain s/p fall COMPARISON: None available. TECHNIQUE: AP, lateral, and oblique views of the right elbow. FINDINGS: There are moderate degenerative changes of the radial capitellar joint with sclerosis and marginal osteophytes. There is mild to moderate degenerative changes in the ulnohumeral joint with marginal osteophytes. Faint calcification is visible in the soft tissues just lateral to the radial capitellar joint. Fat pads are not displaced. XR/XR elbow RT min 3V IMPRESSION: Moderate degenerative changes. Soft tissue calcification lateral to the radial capitellar joint could represent calcium pyrophosphate or possibly hydroxyapatite deposition. Electronically signed by: César Arreguin MD 10/07/2025 04:48 PM EST
--- NOTE | ~2025-10-07 | XR_ITS ---
EXAMINATION: XR WRIST, RIGHT CLINICAL INFORMATION: right wrist pain s/p fall COMPARISON: None available. TECHNIQUE: PA, lateral, oblique, and scaphoid views of the right wrist. FINDINGS: There is mild widening of the scapholunate interval. There is moderate narrowing with sclerosis and osteophytes of the first carpal metacarpal joint. There is amorphous calcific density palmar to the ulnar side of lunate No fracture line is demonstrated. XR/XR wrist RT min 3V IMPRESSION: Suspected scapholunate ligament tear. 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 This could be a source of subacute/chronic pain. Electronically signed by: César Arreguin MD 10/07/2025 04:45 PM [facility]
--- NOTE | ~2025-10-07 | XR_ITS ---
EXAMINATION: XR ELBOW, LEFT CLINICAL INFORMATION: left elbow pain s/p fall COMPARISON: None available. TECHNIQUE: AP, lateral, and oblique views of the left elbow. FINDINGS: No visible fracture, degenerative change, or displaced fat pads XR/XR elbow LT min 3V IMPRESSION: Unremarkable left elbow. Electronically signed by: César Arreguin MD 10/07/2025 04:40 PM EST
--- NOTE | ~2025-10-07 | XR_ITS ---
EXAMINATION: XR SHOULDER, RIGHT CLINICAL INFORMATION: right shoulder pain s/p fall COMPARISON: None available. TECHNIQUE: AP external rotation, Grashey, scapular Y, and axillary views of the right shoulder. FINDINGS: There are moderate degenerative changes in the right AC joint without separation. There is focal calcification projecting over the greater tuberosity. Calcification is seen posteriorly on the axillary view. There are small marginal osteophytes involving humeral head and glenoid. 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 Moderate degenerative changes. Electronically signed by: César Arreguin MD 10/07/2025 04:42 PM EST RP
--- OUTSIDE RECORDS SUMMARY | 2025-10-07 15:40 | XMS_ITS | Encounter Summary ---
Author Organization [employer] Address [address] [facility] [address] [place] [address] Care Team Providers Care Timber Selector Name Role Phone Francoise Dial PharmD Unavailable [phone] Britt Perkins MD Primary Care Provider [phone] Reason for Visit * Reason Comments Fall Encounter Details Date Type Department Care Team ([facility] st Contact Info) Description 10/07/2025 3:40 PM EST Office Visit [facility] [address] [place] [address] [phone] Cyrus Babcock MD [address] [place], [place] [phone] Fall, initial encounter (Primary Dx); Blister of right lower extremity, initial encounter Social History Tobacco Use Types Packs/Day Years Used Date Smoking Tobacco: Some Days Cigarettes Smokeless Tobacco: Never Tobacco Cessation:Ready to Q uit: Not Asked; Counseling Given: Not Answered Comments:Current smokin-2 CIGARETTES PER DAY Alcohol Use Standard Drinks/Week Comments Never 0 (1 standard drink = 0.6 oz pur e alcohol) Depression Answer Date Recorded Patient Health Questionnaire-9 Score 2 07/08/2025 Patient Health Questionnaire-9 Score 2 07/08/2025 Last PHQ-9: Questionnaire Data Not on file 0 07/08/2025 Housing Stability Answer Date Recorded What is your housing situation today? I have larisa mooer 01/03/[address] you li [...] Date Recorded Patient Health Questionnaire-2 Score 0 07/08/2025 Internet Access Answer Date Recorded Internet Access Q1 Yes 01/03/2025 Internet Access Q2 Not on file 01/03/2025 Comments No Sex and Gender Information Value Date Recorded Sex Assigned at Female 08/15/2022 10:20 AM EDT Legal Sex Female 10:20 AM EDT Gender Identity Female 08/15/2022 10:20 AM EDT Sexual Orientation Straight 08/15/2022 10 :20 AM EDT documented as of this encounter Last Filed Vital Signs Vital Sign Reading Time Taken Comments Blood Pressure 135/74 10/07/2025 2:35 PM EST Pulse 85 10/07/2025 2:35 PM EST Temperature 36.7 C (98 F) 10/07/2025 2:35 PM EST Respiratory Rate 16 10/07/2025 2:35 PM EST Oxygen Saturation 99% 10/07/2025 2:35 PM EST Inhaled Oxygen Concentration - - Weight 63.5 kg (140 lb) 10/07/2025 2:35 PM EST Height - - Body Mass Index 21.93 07/08/2025 9:36 AM EDT documented in this encounter Progress Notes * Cyrus Campoverde MD - 10/07/2025 3:40 PM EST SUBJECTIVE Eva Colin is a 75 y.o. female who presents for Fall. Eva Colin, 75 years Recent Falls and Musculoskeletal Pain - Fell inside the house approximately five days ago, lost balance, landed on right hand and left elbow - No head trauma, denies hitting head - Right elbow pain since fall, persistent but less severe than initial onset - Right hand pain after fall - Fell outside approximately four days ago, landed sideways on concrete - No loss of consciousness, denies hitting head - Required about ten minutes to get up after outdoor fall - Current pain in right arm, right elbow, right wrist, and right shoulder; right elbow and right shoulder most affected - Pain intensity currently rated as 6 out of 10, previously more severe - Denies chest, abdominal, rib, back, and hip pain - 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 Review of Systems Constitutional: Negative for fever. HENT: Negative for sore throat. Respiratory: Negative for cough and shortness of breath. Cardiovascular: Negative for chest pain. Gastrointestinal: Negative for abdominal pain. Neurological: Negative for headaches. Allergies[1] OBJECTIVE Vitals: 10/07/25 1435 BP: 135/74 BP Location: Right arm Patient Position: Sitting BP Cuff Size: Adult Pulse: 85 Resp: 16 Temp: 98 ??F (36.7 ??C) TempSrc: Temporal SpO2: 99% Weight: 140 lb (63.5 kg) Physical Exam Vitals reviewed. Constitutional: Appearance: Normal appearance. HENT: Head: Normocephalic and atraumatic. Right Ear: External ear normal. Left Ear: External ear normal. Nose: Nose normal. Mouth/Throat: Mouth: Mucous membranes are moist. Eyes: Conjunctiva/sclera: Conjunctivae normal. Cardiovascular: Rate and Rhythm: Normal rate and regular rhythm. Pulmonary: Effort: Pulmonary effort is normal. Breath sounds: Normal breath sounds. Musculoskeletal: Right shoulder: Tenderness present. No swelling. Left shoulder: Normal. Right upper arm: Tenderness present. Left upper arm: Normal. Right elbow: Tenderness present. Left elbow: Tenderness present. Right forearm: Tenderness present. Right wrist: Tenderness present. Skin: General: Skin is warm. Neurological: Mental Status: She is alert. Mental status is at baseline. Assessment/Plan Problem List Items Addressed This Visit Fall - Primary Pt here with c/o: - Musculoskeletal pain in right elbow, right wrist, and right shoulder following two falls. No headtrauma or loss of consciousness. Hairline fracture considered unlikely based on examination, but imaging ordered to rule out. - Ordered X-rays of right shoulder, both elbows, and right wrist. Prescribed topical diclofenac forpain management. Will review imaging results and contact if abnormalities are found. Home safety and mobility concerns: - Increased fall risk due to balance issues and use of cane. Walker recommended for improved safetyand mobility. - Will initiate paperwork for walker prescription. If unable to complete, referral to primary care provider for further management. Relevant Orders XR Shoulder 2+ Views Right XR Elbow 3+ Views Right XR Wrist 3+ Views Right XR Elbow 3+ Views Left Blister of right leg Noticed it after the fall - Blister on right lower leg identified, likely secondary to trauma from fall. - Recommended to keep area clean, avoid puncturing blister, and monitor for changes. Advised to moisturize skin. Instructed to report if blister enlarges or shows signs of infection. This note was drafted using Ambient (AI) technology. The patient/patient's guardian has been informed and has consented to the use of this technology: Yes Future Appointments Date Time Provider Department Center 10/13/2025 11:30 AM Francoise Dial PharmD MEDICINE [facility] 10/15/2025 10:00 AM Britt Perkins MD MEDICINE [facility] 11/14/2025 11:00 AM Allyson Epps OD VISION [facility] [1] Allergies Allergen Reactions Harsha Inhibitors Nausea Only Other reaction(s): congestion, SEVERE CONGESTION Gramineae Pollens Runny nose Tetracycline Other reaction(s): drowsiness, LETHARGIC, drowsiness documented in this encounter Miscellaneous Notes * Assessment & Plan Note - Cyrus Campoverde MD - 10/07/2025 3:48 PM EST Associated Problem(s): Blister of right leg Noticed it after the fall - Blister on right lower leg identified, likely secondary to trauma from fall. - Recommended to keep area clean, avoid puncturing blister, and monitor for changes. Advised to moisturize skin. Instructed to report if blister enlarges or shows signs of infection. * Assessment & Plan Note - Cyrus Campoverde MD - 10/07/2025 3:47 PM EST Associated Problem(s): Fall Pt here with c/o: - Musculoskeletal pain in right elbow, right wrist, and right shoulder following two falls. No headtrauma or loss of consciousness. Hairline fracture considered unlikely based on examination, but imaging ordered to rule out. - Ordered X-rays of right shoulder, both elbows, and right wrist. Prescribed topical diclofenac forpain management. Will review imaging results and contact if abnormalities are found. Home safety and mobility concerns: - Increased fall risk due to balance issues and use of cane. Walker recommended for improved safetyand mobility. - Will initiate paperwork for walker prescription. If unable to complete, referral to primary care provider for further management. documented in this encounter Plan of Treatment Upcoming Encounters Date Type Department Care Team (Late st Contact Info) Description 10/13/2025 11:30 AM EST Medication Management [facility] MEDICINE [address] [place] [phone] Francoise Dial, DebbieD [address] [place] [address] 10/15/2025 10:00 AM EST Office Visit [facility] MEDICINE [address] [place] [address] Britt Perkins MD [address] [place] [address] 11/14/2025 11:00 AM EST Office Visit [facility] OPTOMETRY [address] [place] [address] Allyson Epps OD [address] [place] [address] documented as of this encounter Goals Goal Patient Goal Type Associated Problems Recent Progress Patient-Stated? Author Blood Pressure < 140/90 Blood Pressure 135/74(2024 2:35 PM EST) Colt Bates Hemoglobin A1c < 7.5 Result Component 7.7( 5 12:37 PM EDT) Colt Bates Note: Modified based on patient age, treatment options available, risk of hypoBG given she lives alone, etc. Help patients manage their type 2 diabetes Care Plan Help patients manage their type 2 diabetes No Horace Ely [place] Weekly blood pressure task Care Plan Weekly blood pressure task No Horace Ely [place] Help patients manage their type 2 diabetes Care Plan Help patients manage their type 2 diabetes No Horace Ely [place] Patient has diabetic eye disease Care Plan Patient has diabetic eye disease No Horace Ely [place] Help patients manage their type 2 diabetes Care Plan Help patients manage their type 2 diabetes No Horace Ely [place] Patient has chronic kidney disease Care Plan Patient has chronic kidney disease No Horace Ely [place] Weekly blood pressure task Care Plan Weekly blood pressure task No Horace lEy [place] Weekly blood pressure task Care Plan Weekly blood pressure task No Horace Ely [place] Patient has diabetic eye disease Care Plan Patient has diabetic eye disease No Horace Ely [place] Patient has diabetic eye disease Care Plan Patient has diabetic eye disease No Horace Ely [place] Patient has chronic kidney disease Care Plan Patient has chronic kidney disease No Horace Ely [place] Patient has chronic kidney disease Care Plan Patient has chronic kidney disease No Horace Ely [place] Weekly blood pressure task Care Plan Weekly blood pressure task No Puia, Francoise, PharmD Weekly blood pressure task Care Plan Weekly blood pressure task No Puia, Francoise, PharmD Weekly blood pressure task Care Plan Weekly blood pressure task No Puia, Francoise, PharmD Patient has diabetic eye disease Care Plan Patient has diabetic eye disease No Puia, Francoise, PharmD Patient has diabetic eye disease Care Plan Patient has diabetic eye disease No Puia, Francoise, PharmD Patient has diabetic eye disease Care Plan Patient has diabetic eye disease No Puia, Francoise, PharmD Patient has chronic kidney disease Care Plan Patient has chronic kidney disease No Puia, Francoise, PharmD Patient has chronic kidney disease Care Plan Patient has chronic kidney disease No Puia, Francoise, PharmD Patient has chronic kidney disease Care Plan Patient has chronic kidney disease No Francoise Dial PharmSusan Weekly blood pressure task Care Plan Weekly blood pressure task [facility] [place] Weekly blood pressure task Care Plan Weekly blood pressure task No [facility] [place] Weekly blood pressure task Care Plan Weekly blood pressure task No [facility] [place] Patient has diabetic eye disease Care Plan Patient has diabetic eye disease No [facility], [place], [place] Patient has diabetic eye disease Care Plan Patient has diabetic eye disease No [facility], [place], [place] Patient has diabetic eye disease Care Plan Patient has diabetic eye disease No [facility], [place], [place] Patient has chronic kidney disease Care Plan Patient has chronic kidney disease No [facility], [place], [place] Patient has chronic kidney disease Care Plan Patient has chronic kidney disease No [facility] [place] Patient has chronic kidney disease Care Plan Patient has chronic kidney disease No [facility], [place], [place] documented as of this encounter Procedures Procedure Name Priority Date/Time Associated Diagnosis Comments XR SHOULDER 2+ VIEWS RIGHT Routine 10/07/2025 4:29 PM EST Fall, initial encounter XR ELBOW 3+ VIEWS LEFT Routine 10/07/2025 4:27 PM EST Fall, initial encounter XR ELBOW 3+ VIEWS RIGHT Routine 10/07/2025 4:25 PM EST Fall, initial encounter XR WRIST 3+ VIEWS RIGHT Routine 10/07/2025 4:23 PM EST Fall, initial encounter documented in this encounter Results * XR Shoulder 2+ Views Right (10/07/2025 4:29 PM EST) Anatomical Region Laterality Modality Upper Extremities, Shoulder Right Radi ographic Imaging 10/07/2025 4:29 PM EST Narrative 10/07/2025 4:45 PM EST [address] [address] XRay Report Signed Patient: Eva Colin MR#: [id number] : 1950 Acct:[id number] Age/Sex: 75 / F ADM Date: 10/07/25 Loc: HO.SANDRAX Attending Dr: Cyrus Davis MD Ordering Physician: Cyrus Davis MD Date of Service: 10/07/25 Procedure(s): XR shoulder RT min 2V Accession Number(s): [id number] cc: Cyrus Davis MD; Britt Perkins Reason for Exam: right shoulder pain s/p fall EXAMINATION: XR SHOULDER, RIGHT CLINICAL INFORMATION: right shoulder pain s/p fall COMPARISON: None available. TECHNIQUE: AP external rotation, Grashey, scapular Y, and axillary views of the right shoulder. FINDINGS: There are moderate degenerative changes in the right AC joint without separation. There is focal calcification projecting over the greater tuberosity. Calcification is seen posteriorly on the axillary view. There are small marginal osteophytes involving humeral head and glenoid. 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 Moderate degenerative changes. Electronically signed by: César Arreguin MD 10/07/2025 04:[address] [facility] Dictated By: César Arreguin MD Signed By: <Electronically signed by César Arreguin MD in OV> 10/07/25 1642 DD/ 1629 TD/TT: 10/07/25 1631 Segment Producer: Procedure Note Donotuseinterpreter, Image - 10/07/[address] [address] XRay Report Signed Patient: Oly Colin#: [id number] : 1950Acct:[id number] Age/Sex: 75 / FADM Date: 10/07/25 Loc: HO.HHCX Attending Dr: Cyrus Davis MD Ordering Physician: Cyrus Davis MD Date of Service: 10/07/25 Procedure(s): XR shoulder RT min 2V Accession Number(s): [id number] cc: Cyrus Davis MD; Britt Perkins Reason for Exam: right shoulder pain s/p fall EXAMINATION: XR SHOULDER, RIGHT CLINICAL INFORMATION: right shoulder pain s/p fall COMPARISON: None available. TECHNIQUE: AP external rotation, Grashey, scapular Y, and axillary views of the right shoulder. FINDINGS: There are moderate degenerative changes in the right AC joint without separation. There is focal calcification projecting over the greater tuberosity. Calcification is seen posteriorly on the axillary view. There are small marginal osteophytes involving humeral head and glenoid. 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 Moderate degenerative changes. Electronically signed by: César Arreguin MD 10/07/2025 04:42 PM EST Dictated By: César Arreguin MD Signed By: <Electronically signed by César Arreguin MD in OV> 10/07/25 1642 DD/ 1629 TD/TT: 10/07/25 1631 Segment Producer: Cyrus Campoverde MD IMG XR PROCEDURES Ranjan jaclyn Result - Final * XR Elbow 3+ Views Left (10/07/2025 4:27 PM EST) Anatomical Region Laterality Modality Upper Extremities, Elbow Left Radiogr aphic Imaging 10/07/2025 4:27 PM EST Narrative 10/07/2025 4:43 PM EST [address] [address] XRay Report Signed Patient: Eva Colin MR#: [id number] : 1950 Acct:[id number] Age/Sex: 75 / F ADM Date: 10/07/25 Loc: HO.HHCX Attending Dr: Cyrus Davis MD Ordering Physician: Cyrus Davis MD Date of Service: 10/07/25 Procedure(s): XR elbow LT min 3V Accession Number(s): [id number] cc: Cyrus Davis MD; Britt Perkins Reason for Exam: left elbow pain s/p fall EXAMINATION: XR ELBOW, LEFT CLINICAL INFORMATION: left elbow pain s/p fall COMPARISON: None available. TECHNIQUE: AP, lateral, and oblique views of the left elbow. FINDINGS: No visible fracture, degenerative change, or displaced fat pads XR/XR elbow LT min 3V IMPRESSION: Unremarkable left elbow. Electronically signed by: César Arreguin MD 10/07/2025 04:40 PM EST RP Dictated By: César Arreguin MD Signed By: <Electronically signed by César Arreguin MD in OV> 10/07/25 1640 DD/ 1627 TD/TT: 10/07/25 1631 Segment Producer: Procedure Note Donotuseinterpreter, Image - 10/07/2025 [place] [address] XRay Report Signed Patient: Oly Colin#: [id number] : 1950Acct:[id number] Age/Sex: 75 / FADM Date: 10/07/25 Loc: HO.HHCX Attending Dr: Cyrus Davis MD Ordering Physician: Cyrus Davis MD Date of Service: 10/07/25 Procedure(s): XR elbow LT min 3V Accession Number(s): [id number] cc: Cyrus Davis MD; Britt Perkins Reason for Exam: left elbow pain s/p fall EXAMINATION: XR ELBOW, LEFT CLINICAL INFORMATION: left elbow pain s/p fall COMPARISON: None available. TECHNIQUE: AP, lateral, and oblique views of the left elbow. FINDINGS: No visible fracture, degenerative change, or displaced fat pads XR/XR elbow LT min 3V IMPRESSION: Unremarkable left elbow. Electronically signed by: César Arreguin MD 10/07/2025 04:40 PM EST RP Dictated By: César Arreguin MD Signed By: <Electronically signed by César Arreguin MD in OV> 10/07/25 1640 DD/ 1627 TD/TT: 10/07/25 1631 Segment Producer: us Cyrus Campoverde MD IMG XR PROCEDURES Ranjan jaclyn Result - Final * XR Elbow 3+ Views Right (10/07/2025 4:25 PM EST) Anatomical Region Laterality Modality Upper Extremities, Elbow Right Radiogr aphic Imaging 10/07/2025 4:25 PM EST Narrative 10/07/2025 4:51 PM EST [address] [address] XRay Report Signed Patient: Eva Colin MR#: [id number] : 1950 Acct:[id number] Age/Sex: 75 / F ADM Date: 10/07/25 [facility]: Cyrus Davis MD Ordering Physician: Cyrus Davis MD Date of Service: 10/07/25 Procedure(s): XR elbow RT min 3V Accession Number(s): [id number] cc: Cyrus Davis MD; Britt Perkins Reason for Exam: right elbow pain s/p fall EXAMINATION: XR ELBOW, RIGHT CLINICAL INFORMATION: right elbow pain s/p fall COMPARISON: None available. TECHNIQUE: AP, lateral, and oblique views of the right elbow. FINDINGS: There are moderate degenerative changes of the radial capitellar joint with sclerosis and marginal osteophytes. There is mild to moderate degenerative changes in the ulnohumeral joint with marginal osteophytes. Faint calcification is visible in the soft tissues just lateral to the radial capitellar joint. Fat pads are not displaced. XR/XR elbow RT min 3V IMPRESSION: Moderate degenerative changes. Soft tissue calcification lateral to the radial capitellar joint could represent calcium pyrophosphate or possibly hydroxyapatite deposition. Electronically signed by: César Arreguin MD 10/07/2025 04:48 PM EST RP Dictated By: César Arreguin MD Signed By: <Electronically signed by César Arreguin MD in OV> 10/07/25 1648 DD/ 1625 TD/TT: 10/07/25 1631 Segment Producer: Procedure Note Donotbranydinterpreter, Image - 10/07/[address] [address] XRay Report Signed Patient: Oly Colin#: [id number] : 1950Acct:[id number] Age/Sex: 75 / FADM Date: 10/07/25 Loc: HO.HHCX Attending Dr: Cyrus Davis MD Ordering Physician: Cyrus Davis MD Date of Service: 10/07/25 Procedure(s): XR elbow RT min 3V Accession Number(s): [id number] cc: Cyrus Davis MD; Britt Perkins Reason for Exam: right elbow pain s/p fall EXAMINATION: XR ELBOW, RIGHT CLINICAL INFORMATION: right elbow pain s/p fall COMPARISON: None available. TECHNIQUE: AP, lateral, and oblique views of the right elbow. FINDINGS: There are moderate degenerative changes of the radial capitellar joint with sclerosis and marginal osteophytes. There is mild to moderate degenerative changes in the ulnohumeral joint with marginal osteophytes. Faint calcification is visible in the soft tissues just lateral to the radial capitellar joint. Fat pads are not displaced. XR/XR elbow RT min 3V IMPRESSION: Moderate degenerative changes. Soft tissue calcification lateral to the radial capitellar joint could represent calcium pyrophosphate or possibly hydroxyapatite deposition. Electronically signed by: César Arreguin MD 10/07/2025 04:48 PM EST RP Dictated By: César Arreguin MD Signed By: <Electronically signed by César Arreguin MD in OV> 10/07/25 1648 DD/ 1625 TD/TT: 10/07/25 1631 Segment Producer: us Cyrus Campoverde MD IMG XR PROCEDURES Fin al Result * XR Wrist 3+ Views Right (10/07/2025 4:23 PM EST) Anatomical Region Laterality Modality Upper Extremities, Wrist Right Radiogr aphic Imaging 10/07/2025 4:23 PM EST Narrative 10/07/2025 4:48 PM EST [facility] [address] [place] [address] XRay Report Signed Patient: Eva Colin MR#: [id number] : 1950 Acct:[id number] Age/Sex: 75 / F ADM Date: 10/07/25 Loc: HO.HHCX Attending Dr: Cyrus Davis MD Ordering Physician: Cyrus Davis MD Date of Service: 10/07/25 Procedure(s): XR wrist RT min 3V Accession Number(s): [id number] cc: Cyrus Davis MD; Britt Perkins Reason for Exam: right wrist pain s/p fall EXAMINATION: XR WRIST, RIGHT CLINICAL INFORMATION: right wrist pain s/p fall COMPARISON: None available. TECHNIQUE: PA, lateral, oblique, and scaphoid views of the right wrist. FINDINGS: There is mild widening of the scapholunate interval. There is moderate narrowing with sclerosis and osteophytes of the first carpal metacarpal joint. There is amorphous calcific density palmar to the ulnar side of lunate No fracture line is demonstrated. XR/XR wrist RT min 3V IMPRESSION: Suspected scapholunate ligament tear. 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 This could be a source of subacute/chronic pain. Electronically signed by: César Arreguin MD 10/07/2025 04:45 PM EST Dictated By: César Arreguin MD Signed By: <Electronically signed by César Arreguin MD in OV> 10/07/25 1645 DD/ 1623 TD/TT: 10/07/25 1631 Segment Producer: Procedure Note Donotbrandyinterpreter, Image - 10/07/2025 [facility] [address] [place] [address] XRay Report Signed Patient: Oly Colin#: [id number] : 1950Acct:[id number] Age/Sex: 75 / FADM Date: 10/07/25 Loc: HO.HHCX Attending Dr: Cyrus Davis MD Ordering Physician: Cyrus Davis MD Date of Service: 10/07/25 Procedure(s): XR wrist RT min 3V Accession Number(s): [id number] cc: Cyrus Davis MD; Britt Perkins Reason for Exam: right wrist pain s/p fall EXAMINATION: XR WRIST, RIGHT CLINICAL INFORMATION: right wrist pain s/p fall COMPARISON: None available. TECHNIQUE: PA, lateral, oblique, and scaphoid views of the right wrist. FINDINGS: There is mild widening of the scapholunate interval. There is moderate narrowing with sclerosis and osteophytes of the first carpal metacarpal joint. There is amorphous calcific density palmar to the ulnar side of lunate No fracture line is demonstrated. XR/XR wrist RT min 3V IMPRESSION: Suspected scapholunate ligament tear. 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 This could be a source of subacute/chronic pain. Electronically signed by: César Arreguin MD 10/07/2025 04:45 PM EST Dictated By: César Arreguin MD Signed By: <Electronically signed by César Arreguin MD in OV> 10/07/25 1645 DD/ 1623 TD/TT: 10/07/25 1631 Segment Producer: Cyrus Campoverde MD IMG XR PROCEDURES Ranjan jaclyn Result - Final documented in this encounter Visit Diagnoses Diagnosis Fall, initial encounter- Primary Blister of right lower extremity, initial encounter documented in this encounter Additional Health Concerns Active Problems Noted Date Diagnosed Date Help patients manage their type 2 diabetes 09/03 Weekly blood pressure task 09/03/2025 Help patients manage their type 2 diabetes 09/03 Patient has diabetic eye disease 09/03/2025 Help patients manage their type 2 diabetes 09/03 Patient has chronic kidney disease 09/03/2025 Weekly blood pressure task 09/03/2025 Weekly blood pressure task 09/03/2025 Patient has diabetic eye disease 09/03/2025 Patient has diabetic eye disease 09/03/2025 Patient has chronic kidney disease 09/03/2025 Patient has chronic kidney disease 09/03/2025 Weekly blood pressure task 10/07/2025 Weekly blood pressure task 10/07/2025 Weekly blood pressure task 10/07/2025 Patient has diabetic eye disease 10/07/2025 Patient has diabetic eye disease 10/07/2025 Patient has diabetic eye disease 10/07/2025 Patient has chronic kidney disease 10/07/2025 Patient has chronic kidney disease 10/07/2025 Patient has chronic kidney disease 10/07/2025 Weekly blood pressure task 10/07/2025 Weekly blood pressure task 10/07/2025 Weekly blood pressure task 10/07/2025 Patient has diabetic eye disease 10/07/2025 Patient has diabetic eye disease 10/07/2025 Patient has diabetic eye disease 10/07/2025 Patient has chronic kidney disease 10/07/2025 Patient has chronic kidney disease 10/07/2025 Patient has chronic kidney disease 10/07/2025 Assessment Noted Time PHQ-9 Depression Total Score: 2 07/08/20 25 9:40 AM EDT documented as of this encounter Care Teams Timber Selector Relationship Specialty Start Date End Date Britt Perkins MD [address] [place] [address] PCP - General Family Medicine 05/07/25 Francoise Dial PharmD [address] [place] [address] Pharmacist Internal Medicine 05/21/24 documented as of this encounter
--- OUTSIDE RECORDS SUMMARY | 2025-10-07 16:52 | XMS_ITS | Encounter Summary ---
Author Organization [employer] Address [address] [place] [address] Care Team Providers Care Relief Docking Master Name Role Phone Arianna Wellington Primary Care Provider [phone] Francoise Dial PharmD Unavailable [phone] Name, Jules GABRIEL Primary Care Provider [phone] Britt Perkins MD Primary Care Provider [phone] Reason for Visit * Reason Onset Date Comments medical clearance 01/30/2024 Encounter Details Date Type Department Care Team (Late st Contact Info) Description 01/30/2024 Telephone [facility] [address] [place], [place] [phone] Arianna Wellington FNP [address] [place] [address] medical clearance Social History Tobacco Use Types [...] 3:29 PM EDT Tc from [place] with [facility] pain management requesting medical clearance to stop aspirin (Aspirin AdultLow Strength) 81 MG EC tablet 7 days prior to procedure scheduled on 02/12. Please contact marina at [phone] documented in this encounter Plan of Treatment Upcoming Encounters Date Type Department Care Team ([facility] st Contact Info) Description 10/13/2025 11:30 AM EST Medication Management [facility] [address] [place] [address] Francoise Dial, PharmD [address] [place] [address] 10/15/2025 10:00 AM EST Office Visit [facility] [address] [place] [address] Britt Perkins MD [address] [place] [address] 11/14/2025 11:00 AM EST Office Visit [facility] [address] [place] [phone] Allyson Epps, OD [address] [place] [address] documented as of this encounter Goals Goal Patient Goal Type Associated Problems Recent Progress Patient-Stated? Author Blood Pressure < 140/90 Blood Pressure 135/74(2024 2:35 PM EST) No Colt Garza Hemoglobin A1c < 7.5 Result Component 7.7( 12:37 PM EDT) No Colt Garza Note: Modified based on patient age, treatment options available, risk of hypoBG given she lives alone, etc. documented as of this encounter Visit Diagnoses Not on filedocumented in this encounter Additional Health Concerns Assessment Noted Time PHQ-9 Depression Total Score: 24 023 9:07 AM EDT documented as of this encounter Care Teams Relief Docking Master Relationship Specialty Start Date End Date Arianna Wellington FNP [address] [place] [address] PCP - General Family Medicine 03/20/23 06/17/24 Name, MD Jules [address] [place] [address] PCP - General Internal Medicine 06/18/24 05/06/25 Britt Perkins MD [address] [place] [address] PCP - General Family Medicine 05/07/25 Francoise Dial PharmD [address] [place] [address] Pharmacist Internal Medicine 05/21/24 documented as of this encounter
--- OUTSIDE RECORDS SUMMARY | 2025-10-07 16:52 | XMS_ITS | Clinical Summary ---
Author Organization [employer] Address [address] [facility] [address] [place] [address] Care Team Providers Care Accounting File Clerk Name Role Phone Francoise Dial PharmD Unavailable [phone] Britt Perkins MD Primary Care Provider [phone] Allergies Active Allergy Reactions Criticality Noted Date [...] the tongue in the morning. 3 Active Lancets (OneTouch Delica Plus [id number]) miscIndications: Type 2 diabetes mellitus without complication, unspecified whether longshore equipment operator insulin use USE DIRECTED TO TEST BLOOD SUGAR FOUR TIMES DAILY 100 each 11 4 Active glucose blood (FreeStyle Precision Miguelito Test) test stripIndications :Type 2 diabetes mellitus with other specified complication, unspecified whether nursing home insulin use (HCC) Test blood sugar q 8 hours 100 each 12 4 Active Blood Pressure Monitor kitIndications:E levated blood pressure reading 1 kit 2 times daily. 1 kit 4 Active Continuous Blood Gluc Cook Mayonnaise (FreeStyle Elizabeth 2 [place]) device USE DIRECTED TO TEST BLOOD SUGAR EVERY 8 HOURS 4 Active Alcohol Swabs (Alcohol Prep) 70 % padsIndications: Type 2 diabetes mellitus without complication, unspecified whether nursing home insulin use USE DIRECTED TO TEST BLOOD SUGAR FOUR TIMES DAILY 100 each 11 4 Active Reguloid 57.6 % powder 4 Active fluticasone (Flonase) 50 MCG/ACT nasal spray Administer 2 sprays into each nostril Once per day. Shake gently. Before first use, prime pump. After use, clean tip and replace cap. 16 g 11 5 01/04/20 26 Active Dulaglutide (Trulicity) 1.5 MG/0.5ML solution auto-injectorInd ications:Type 2 diabetes mellitus with other specified complication, unspecified whether nursing home insulin use (HCC) Inject 1.5 mg under the skin 1 (one) time per week. 2 mL 10/07/2025 4:48 PM EST 5 Active Continuous Glucose Sensor (FreeStyle Elizabeth 2 Plus Sensor) miscIndications: Type 2 diabetes mellitus without complication, with long-term current use of insulin ([facility]) 1 each every 8 (eight) hours. Apply 1 sensor every 15 days as directed for CGM. Continue to scan Q8H, at minimum, to capture 24 hr BG data. 2 each 10/07/2025 4:48 PM EST 5 Active hydroCHLOROthiaz avni (HYDRODiuril) 50 MG tablet TAKE 1 TABLET BY MOUTH EVERY MORNING 90 tablet 1 10/07/2025 4:48 PM EST 5 Active atorvastatin (Lipitor) 40 MG tablet TAKE 1 TABLET BY MOUTH EVERY MORNING 90 tablet 1 10/07/2025 4:48 PM EST 5 Active Aspirin Low Dose 81 MG EC tablet TAKE 1 TABLET BY MOUTH EVERY MORNING 90 tablet 1 10/07/2025 4:48 PM EST 5 Active losartan (Cozaar) 100 MG tablet TAKE 1 TABLET BY MOUTH EVERY MORNING 90 tablet 1 10/07/2025 4:48 PM EST 5 Active ciclopirox (Penlac) 8 % solution Apply topically at bedtime. 6 mL 3 5 Active cetirizine (ZyrTEC) 10 MG tabletIndication s:Seasonal allergies TAKE 1 TABLET BY MOUTH EVERY MORNING 90 tablet 3 5 Active Diclofenac Sodium 1 % gel APPLY A THIN LAYER TOPICALLY TO AFFECTED AREA(S) THREE TIMES DAILY NEEDED FOR PAIN 100 g 1 5 Active imiquimod (Aldara) 5 % creamIndications :Anogenital (venereal) warts APPLY 1 PACKET TOPICALLY 3 TIMES PER WEEK FOR 48 DOSES 12 packet 3 5 Active metFORMIN XR (Glucophage-XR) 500 MG 24 hr tabletIndication s:Type 2 diabetes mellitus with other specified complication, unspecified whether nursing home insulin use (HCC) TAKE 2 TABLETS BY MOUTH TWICE DAILY IN THE MORNING AND EVENING 360 tablet 1 5 Active Hospital, Clinic, or Other Facility Administered Medication Ordered Dose Route Frequency Start Date End Date Status lidocaine (Xylocaine) 2 % injection 40 mgIndications:Paraspinal muscle spasm 40 mg IJ Once 07/09/2025 Active Active Problems Problem Noted Date Diagnosed Date Fall 10/07/2025 Assessment & Plan (10/07/2025 3:47 PM EST): Pt here with c/o: - Musculoskeletal pain in right elbow, right wrist, and right shoulder following two falls. No head trauma or loss of consciousness. Hairline fracture considered unlikely based on examination, but imaging ordered to rule out. - Ordered X-rays of right shoulder, both elbows, and right wrist. Prescribed topical diclofenac for pain management. Will review imaging results and contact if abnormalities are found. Home safety and mobility concerns: - Increased fall risk due to balance issues and use of cane. Walker recommended for improved safety and mobility. - Will initiate paperwork for walker prescription. If unable to complete, referral to primary care provider for further management. Blister of right leg 10/07/2025 Assessment & Plan (10/07/2025 3:48 PM EST): Noticed it after the fall - Blister on right lower leg identified, likely secondary to trauma from fall. - Recommended to keep area clean, avoid puncturing blister, and monitor for changes. Advised to moisturize skin. Instructed to report if blister enlarges or shows signs of infection. Paraspinal muscle spasm 07/09/2025 Moderately severe depression 02/14/2024 Assessment & Plan [...] too much, and Currently in MAT at [facility], denies cravings has been able to [...] Health Integration Plan Internal Follow up with [facility] External OP therapy referral and OP psychiatry Referral Patient Self Plan Patient to utilize skills provided in intervention , Patient to reach out to [facility] team as needed, Comply with medication , Patient to engage in OP therapy , and Patient to reach out to [facility] as needed Colon cancer screening 06/13/2023 DVT (deep venous thrombosis) 06/13/2023 Myofascial pain 06/13/2023 Sacroiliac joint pain 06/13/2023 Varicose veins of left lower extremity with infl ammation 06/13/2023 History of opioid abuse 06/08/2021 Hip pain 10/24/2018 Lumbar spondylosis 10/24/2018 Assessment & Plan (05/12/2025 10:15 AM EDT): With resulting muscle spasm at levo curvature, will bring back for trigger point injections Hepatitis C 01/30/2014 Overview (09/18/2024): Treated in the past at [facility], genotype 1A. Cannot find details of treatment VL negaive 2021. Had Hep A and B vaccines in the past Hypertension 04/06/2012 Assessment & Plan (05/12/2025 10:16 AM EDT): At goal on Losartan and hydrochlorothiazide BMP: Lipid Panel: ASCVD Risk: Calculate pending updated labs EKG: Obtain baseline at f/u - Aerobic exercise to reduce BP. Initial goal of 30 min walk 3-5x/week. Increase as tolerated. - low-sodium diet (goal: <2g/day) and heart healthy diet such as DASH to reduce BP and prevent ASCVD. - Home BP monitoring 1-2 x day with goal of <140/90. - Seek immediate medical attention for chest pain, palpitations, SOB, syncope, or sudden changes in mental status. - Do not change or discontinue current prescriptions without first consulting health care provider Tobacco dependence syndrome 04/06/2012 Mild nonproliferative diabetic retinopathy 12/18 Allergic rhinitis 03/07/2011 Type 2 diabetes mellitus with other specified co mplication 03/07/2008 Assessment & Plan (05/12/2025 10:18 AM EDT): Current A1c: 8.2 Continue Trulicity 1.5mg and Metformin XR 1000mg BID BMP: Microalbumin: Foot Exam: Complete at follow up Eye Exam: Discuss at follow up Lipid panel: ASCVD: Calculate pending updated labs Statin: Yes ASA: No HARSHA/ARB: No Encouraged regular aerobic exercise for improved glycemic control Encouraged daily foot checks Encouraged lean protein snacks and to avoid foods high in sugar and simple carbohydrates Treatment Goals: A1c goal: <7% FBG goal: <130 2 hour post prandial goal: <180 Resolved Problems Problem Noted Date Diagnosed Date Resolved Date Subacute vaginitis 04/07/2025 Assessment & Plan (04/07/2025 4:11 PM EDT): Seems to be consistent with BV, Rx metronidazole x 7 days. Advised to take it with peanut butter or mashed potato, avoid applesauce given history of DM. Follow results of vaginal swab Advised against using vaginal lotions or strong soaps. Lower urinary tract symptoms (LUTS) 04/07/2025 05/12/2025 Assessment & Plan (04/07/2025 4:12 PM EDT): Most likely BV given leukocyturia, will follow-up urine culture results. Will call back as needed positive UTI results, otherwise she will continue on Flagyl Encounters Date Type Department Care Team Description 10/07/2025 3:40 PM EST Office Visit [facility] [address] [place] [address] Cyrus Babcock MD Fall, initial encounter (Primary Dx); Blister of right lower extremity, initial encounter 10/07/2025 Travel 09/03/2025 Telephone [facility] MEDICINE [address], [place] [phone] Britt Perkins MD 08/26/2025 Travel 07/21/2025 Refill [facility] [address] [place] [address] Francoise Dial, DebbieD Type 2 diabetes mellitus with other specified complication, unspecified whether longshore equipment operator insulin use ([facility]) 07/15/2025 Travel 07/08/2025 9:15 AM EDT Procedure Visit [facility] MEDICINE [address] [place] [phone] Britt Perkins MD Paraspinal muscle spasm (Primary Dx); Type 2 diabetes mellitus with other specified complication, without long-term current use of insulin ([facility]) 07/08/2025 Travel from Last 3 Months Immunizations Immunization Administration Dates Next Due Hep A, Adult 08/24/2023,11/11/2013 Hep B, adult 07/21/2023,12/25/2013,11/11/2013 Influenza High-dose Quadriva lent Preservative Free 07/21/2023,06/24/2022,08/16/2021,07/07 Influenza injectable quadriv alent IIV4 with preservative 08/11/2016,07/29/2015 Influenza injectable quadriv alent preservative free 10/24/2018,07/17/2017 Influenza, High Dose Seasona l, Preservative Free 07/15/2025,07/03/2024 Influenza, IIV3, injectable 08/20/2008 Influenza, Split (incl. zak fied surface antigen) 09/19/2013,08/30/2012 Pfizer Covid-19 Vaccine 12+ 07/15/2025, Pneumococcal Conjugate PCV 13 07/29/2015 Pneumococcal Conjugate [...] (140 lb) 10/07/2025 2:35 PM EST Height 170.2 cm (5' 7 ) 07/08/2025 9:36 AM EDT Body Mass Index 21.93 07/08/2025 9:36 AM EDT Plan of Treatment Upcoming Encounters Date Type Department Care Team (Late st Contact Info) Description 10/13/2025 11:30 AM EST Medication Management [facility] MEDICINE [address] [place] [address] Francoise Dial, PharmD [address] [place] [address] 10/15/2025 10:00 AM EST Office Visit [facility] MEDICINE [address] [place] [address] Britt Perkins MD [address] [place] [address] 11/14/2025 11:00 AM EST Office Visit [facility] OPTOMETRY [address] [place] [address] Allyson Epps, OD [address] [place] [address] Health Maintenance Due Date Last Done Comments CT Colonography 1950 Colonoscopy 1950 Colorectal Cancer Screening 1950 FIT DNA/Cologuard 1950 FIT 1950 FOBT 1950 Sigmoidoscopy 1950 Diabetes: Urine Protein Screening 12/21/2022 12/21/2021, 10/29/2020 Lipid Panel 06/07/2025 06/07/2024, 1012/2022, 12/21/2021, Additional history exists Diabetes: Foot Exam 09/18/2025 09/18/2024, 09/18/2024, 09/18/2024, Additional history exists Diabetes: Hemoglobin A1C 10/14/2025 025, 04/07/2025, 01/03/2025, Additional history exists SDOH Screening 01/03/2026 01/03/2025 COVID-19 Vaccine ( season) 2026 07/15/2025, 11/29/2023, 05/25/2022, Additional history exists Eye Exam 05/14/2026 05/14/2025, 04/17, 05/14/2025, Additional history exists Alcohol/Substance Use Screening 07/08/2026 07/08/2025 Depression Screening 07/08/2026 07/08/2025, 07/08/20 25 Tobacco Screening 10/07/2026 10/07/2025 HPV/Cotest 07/03/2029 07/03/2024, 04/26/2017 Pap Smear 07/03/2029 07/03/2024 DTaP/Tdap/Td Vaccines (3 - Td or Tdap) 12/31/2033 01/01/2024, 09/19/2013 Zoster Vaccines Completed 07/15/2022, 04/16, 05/05/2017 Pneumococcal Vaccine: 50+ Years Completed 06/23/2023, 08/16/2021, 07/29/2015, Additional history exists Hepatitis B Vaccines Completed 07/21/2023, 12/25/2013, 11/11/2013 Hepatitis A Vaccines Completed 08/24/2023, 11/11/19 14 RSV Patients and Patients Aged 60 years or older Completed 01/01/2024 Influenza Vaccine Completed 07/15/2025, , 07/21/2023, Additional history exists HIB Vaccines Aged Out [...] 7.5 Result Component 7.7( 12:37 PM EDT) Colt Bates Note: Modified [...] Help patients manage their type 2 diabetes Horace Gallardo MA Patient has diabetic eye disease Care [...] blood pressure task No Horace Ely MA Weekly blood pressure [...] chronic kidney disease No Puia, Francoise, PharmD Weekly blood pressure task Care Plan Weekly blood pressure task No [place], [place] Weekly blood pressure task Care Plan Weekly blood pressure task No [place], [place] Weekly blood pressure task Care Plan Weekly blood pressure task No [facility] [place] Patient has diabetic eye disease Care Plan Patient has diabetic eye disease No [place], [place] Patient has diabetic eye disease Care Plan Patient has diabetic eye disease No [place], [place] Patient has diabetic eye disease Care Plan Patient has diabetic eye disease No [place], [place] Patient has chronic kidney disease Care Plan Patient has chronic kidney disease No [facility] [place] Patient has chronic kidney disease Care Plan Patient has chronic kidney disease No [place], [place] Patient has chronic kidney disease Care Plan Patient has chronic kidney disease No [place], [place] Procedures Procedure Name Priority Date/Time Associated Diagnosis Comments XR SHOULDER 2+ VIEWS RIGHT Routine 10/07/2025 4:29 PM EST Fall, initial encounter XR ELBOW 3+ VIEWS LEFT Routine 10/07/2025 4:27 PM EST Fall, initial encounter XR ELBOW 3+ VIEWS RIGHT Routine 10/07/2025 4:25 PM EST Fall, initial encounter XR WRIST 3+ VIEWS RIGHT Routine 10/07/2025 4:23 PM EST Fall, initial encounter POCT GLYCATED HEMOGLOBIN, TOTAL Routine 07/15/2025 12:37 PM EDT Type 2 diabetes mellitus with other specified complication, unspecified whether longshore equipment operator insulin use ([facility]) GENERAL Routine 07/08/2025 10:00 AM EDT Paraspinal muscle spasm THINPREP IMAGING PAP AND HPV MRNA E6/E7 Routine 07/03/2024 9:54 AM EDT LIPID PANEL, STANDARD Routine 06/07/2024 12:35 PM EDT Type 2 diabetes mellitus without complication, with long-term current use of insulin ([facility]) ALBUMIN, RANDOM URINE W/CREATININE Routine 12/21/2021 10:59 AM EST from Last 3 Months or Most Recently Relevant to Health Maintenance Results * XR Shoulder 2+ Views Right (10/07/2025 4:29 PM EST) Anatomical Region Laterality Modality Upper Extremities, Shoulder Right Radi ographic Imaging 10/07/2025 4:29 PM EST Narrative 10/07/2025 4:45 [place] [address] XRay Report Signed Patient: Eva Colin MR#: [id number] : 1950 Acct:[id number] Age/Sex: 75 / F ADM Date: 10/07/25 Loc: HO.HHCX Attending Dr: Cyrus Davis MD Ordering Physician: Cyrus Davis MD Date of Service: 10/07/25 Procedure(s): XR shoulder RT min 2V Accession Number(s): [id number] cc: Cyrus Davis MD; Britt Perkins Reason [...] by: César Arreguin MD 10/07/2025 04:42 PM [facility] Dictated By: César Arreguin MD Signed By: <Electronically signed by César Arreguin MD in OV> 10/07/25 1642 DD/ 1629 TD/TT: 10/07/25 1631 Cnc Grinder: Procedure Note Donotuseinterpreter, Image - 10/07/[address] [address] XRay Report Signed Patient: Oly Colin#: [id number] : 1950Acct:[id number] Age/Sex: 75 / FADM Date: 10/07/25 Loc: HO.HHCX Attending Dr: Cyrus Davis MD Ordering Physician: Cyrus Davis MD Date of Service: 10/07/25 Procedure(s): XR shoulder RT min 2V Accession Number(s): [id number] cc: Cyrus Davis MD; Britt Perkins Reason [...] César Arreguin MD 10/07/2025 04:42 PM EST RP Dictated By: César Arreguin MD Signed By: <Electronically signed by César Arreguin MD in OV> 10/07/25 1642 DD/ 1629 TD/TT: 10/07/25 1631 Cnc Grinder: us Cyrus Campoverde MD IMG XR PROCEDURES Ranjan jaclyn Result - Final * XR Elbow 3+ Views Left (10/07/2025 4:27 PM EST) Anatomical Region Laterality Modality Upper Extremities, Elbow Left Radiogr aphic Imaging 10/07/2025 4:27 PM EST Narrative 10/07/2025 4:43 PM EST [facility] [address] [place] [address] XRay Report Signed Patient: Eva Colin MR#: [id number] : 1950 Acct:[id number] Age/Sex: 75 / F ADM Date: 10/07/25 Loc: .HHCX Attending Dr: Cyrus Davis MD Ordering Physician: Cyrus Davis MD Date of Service: 10/07/25 Procedure(s): XR elbow LT min 3V Accession Number(s): [id number] cc: Cyrus Davis MD; Britt Perkins Reason [...] 10/07/25 1640 DD/ 1627 TD/TT: 10/07/25 1631 Cnc Grinder: Procedure Note Donotuseinterpreter, Image - 10/07/[address] [address] XRay Report Signed Patient: Oly Colin#: [id number] : 1950Acct:[id number] Age/Sex: 75 / FADM Date: 10/07/25 Loc: HO.HHCX Attending Dr: Cyrus Davis MD Ordering Physician: Cyrus Davis MD Date of Service: 10/07/25 Procedure(s): XR elbow LT min 3V Accession Number(s): [id number] cc: Cyrus Davis MD; Britt Perkins Reason [...] 10/07/25 1640 DD/ 1627 TD/TT: 10/07/25 1631 Cnc Grinder: us Cyrus Campoverde MD IMG XR PROCEDURES Ranjan jaclyn Result - Final * XR Elbow 3+ Views Right (10/07/2025 4:25 PM EST) Anatomical Region Laterality Modality Upper Extremities, Elbow Right Radiogr aphic Imaging 10/07/2025 4:25 PM EST Narrative 10/07/2025 4:51 PM EST [address] [address] XRay Report Signed Patient: Eva Colin MR#: [id number] : 1950 Acct:[id number] Age/Sex: 75 / F ADM Date: 10/07/25 Loc: .HHCX Attending Dr: Cyrus Davis MD Ordering Physician: Cyrus Davis MD Date of Service: 10/07/25 Procedure(s): XR elbow RT min 3V Accession Number(s): [id number] cc: Cyrus Davis MD; Britt Perkins Reason [...] César Arreguin MD 10/07/2025 04:48 PM EST Dictated By: César Arreguin MD Signed By: <Electronically signed by César Arreguin MD in OV> 10/07/25 1648 DD/ 1625 TD/TT: 10/07/25 1631 Cnc Grinder: Procedure Note Donotuseinterpreter, Image - 10/07/[address] [address] XRay Report Signed Patient: Oly Colin#: [id number] : 1950Acct:[id number] Age/Sex: 75 / FADM Date: 10/07/25 Loc: HO.HHCX Attending Dr: Cyrus Davis MD Ordering Physician: Cyrus Davis MD Date of Service: 10/07/25 Procedure(s): XR elbow RT min 3V Accession Number(s): [id number] cc: Cyrus Davis MD; Britt Perkins Reason [...] César Arreguin MD 10/07/2025 04:48 PM EST Dictated By: César Arreguin MD Signed By: <Electronically signed by César Arreguin MD in OV> 10/07/25 1648 DD/ 1625 TD/TT: 10/07/25 1631 Cnc Grinder: us Cyrus Campoverde MD IMG XR PROCEDURES Fin al Result * XR Wrist 3+ Views Right (10/07/2025 4:23 PM EST) Anatomical Region Laterality Modality Upper Extremities, Wrist Right Radiogr aphic Imaging 10/07/2025 4:23 PM EST Narrative 10/07/2025 4:48 PM EST [address] [address] XRay Report Signed Patient: Eva Colin MR#: [id number] : 1950 Acct:[id number] Age/Sex: 75 / F ADM Date: 10/07/25 Loc: LUPEX Attending Dr: Cyrus Davis MD Ordering Physician: Cyrus Davis MD Date of Service: 10/07/25 Procedure(s): XR wrist RT min 3V Accession Number(s): [id number] cc: Cyrus Davis MD; Britt Perkins Reason [...] by: César Arreguin MD 10/07/2025 04:45 PM [facility] Dictated By: César Arreguin MD Signed By: <Electronically signed by César Arreguin MD in OV> 10/07/25 1645 DD/ 1623 TD/TT: 10/07/25 1631 Cnc Grinder: Procedure Note Donotuseinterpreter, Image - 10/07/[address] [address] XRay Report Signed Patient: Oly Colin#: [id number] : 1950Acct:[id number] Age/Sex: 75 / FADM Date: 10/07/25 Loc: [facility] Attending Dr: Cyrus Davis MD Ordering Physician: Cyrus Davis MD Date of Service: 10/07/25 Procedure(s): XR wrist RT min 3V Accession Number(s): [id number] cc: Cyrus Davis MD; Britt Perkins Reason [...] 10/07/25 1645 DD/ 1623 TD/TT: 10/07/25 1631 Cnc Grinder: us Cyrus Campoverde MD IMG XR PROCEDURES Ranjan jaclyn Result - Final * (ABNORMAL) POCT Hgb A1c (07/15/2025 12:37 PM EDT) Hemoglobin A1C 7.7(A) 4.0 - 5.7 % Blood 07/15/2025 12:3 7 PM EDT us Britt Perkins MD POINT OF CARE TEST ENTER/EDIT ORDERABLES Final Result * Trigger Point (07/08/2025 10:00 AM EDT) Narrative Britt Perkins MD - 07/08/2025 10:00 AM EDT Britt Perkins MD 07/09/2025 2:10 PM Trigger Point Date/Time: 07/08/2025 10:00 AM Performed by: Britt Perkins MD Authorized by: Britt Perkins MD Confirmed correct patient, procedure, site, and patient consented: Yes Consent: Consent obtained: Written Consent given by: Patient Procedure risks and benefits discussed: Yes Patient questions answered: Yes Patient agrees, verbalizes understanding, and wants to proceed: Yes Educational handouts given: No Instructions and paperwork completed: Yes Lissie protocol: Procedure explained and questions answered to patient or proxy's satisfaction: yes Relevant documents present and verified: yes Site/side marked: yes Immediately prior to procedure, a time out was called: yes Patient identity confirmed: Verbally with patient Indications: Indications: Paraspinous muscle spasm Pre-procedure details: Procedure prep: alcohol 70% Sedation: Sedation type: None Anesthesia: Anesthesia method: None Procedure specific details: Points of maximal tenderness and muscle triggering palpated on the Left mid back paraspinous muscles, six points in total on the Left side. 0.3-0.5cc of lidocaine 2% without epi was injected into each point in a stellate manner. Post-procedure details: Procedure completion: Tolerated well, no immediate complications us Britt Perkins MD IN CLINIC/BEDSIDE ORDERABLES F inal Result * ThinPrep Imaging Pap and HPV mRNA E6/E7 (07/03/2024 9:54 AM EDT) HPV nRNA E6/E7 Not Detected Not Detected [facility] Comment:Methodology: Transcr iption-Mediated AmplificationThis assay detects E6/E7 viral messenger RNA (mRNA) from 14high-risk HPV types (16,18,31,33,35,39,45,51,52,56,58,59,66,68).Cervical sources are required for HPV testing.If a vaginal source from a patient who has had atotal hysterectomy with removal of cervix wassubmitted, please contact the testing laboratoryfor alternative testing options.For additional information, please refer [email or web address]/BZX829x2(This link if provided for information/educational purposes only.)THIS TEST WAS PERFORMED AT:[facility] [address] [id number] LUIS MARTÍNEZ MD SOURCE: SEE NOTE [facility] Comment:None given Report Status: [facility] Clinical Information: SEE NOTE [facility] Comment:None given LMP: SEE NOTE [facility] Comment:NONE GIVEN Prev. PAP: SEE NOTE [facility] Comment:NONE GIVEN Prev. BX: SEE NOTE [facility] Comment:NONE GIVEN Statement Of Adequacy: SEE NOTE [facility] Comment:Satisfactory for galileo luation.Endocervical/transformation zone componentpresent. General Categorization: [facility] Interpretation/Result: SEE NOTE [facility] Comment:Cytology Results: Ne gative for intraepitheliallesion or malignancy. Cytology Comment SEE NOTE [facility] Comment:This Pap test has be en evaluated with computerassisted technology. Financial Services Education Consultant: SEE NOTE [facility] Comment:[facility], CT(ASCP)CT scre ening location: [address] [address] Review Financial Services Education Consultant: [facility] Pathologist [facility] PAP Infection [facility] See Note SEE NOTE [facility] Comment:EXPLANATORY NOTE:The Pap is a screening test for cervical cancer. It isnot a diagnostic test and is subject to false negativeand false positive results. It is most reliable when asatisfactory sample, regularly obtained, is submittedwith relevant clinical findings and history, and whenthe Pap result is evaluated along with historic andcurrent clinical information. 07/03/2024 9:54 AM EDT 07/03/2024 6:04 PM EDT Narrative [facility] - 07/09/2024 2:51 PM EDT SEE SCANNED RESULTS IN EMR us Cassidy PARKS LAB PATHOLOGY ORDERABLES Final Result [facility] [address] [place] [address] [phone] * Lipid Panel, Standard (06/07/2024 12:35 PM EDT) Triglycerides 53 <150 mg/dL [facility] Comment:Desirable Triglyceri de: less than 150 mg/dLBorderline High Triglyceride 150-199 mg/dLHigh Triglyceride: 200-499 mg/dLVery High Triglyceride: greater than or equal to 5OO mg/dL Cholesterol 140 <200 mg/dL [facility] Comment:Desirable Cholestero l: less than 200 mg/dLBorderline High Cholesterol: 200-239 mg/dLHigh Cholesterol: greater than 239 mg/dL LDL Cholesterol Calculated 66 <100 mg/dL [facility] Comment:Desirable LDL: less than 100 mg/dLNear Optimal/Above Optimal LDL: 110- 129 mg/dLBorderline High LDL: 130-159 mg/dLHigh LDL: 160-189 mg/dLVery High LDL: greater than or equal to 190 mg/dL HDL Cholesterol 64 >40 mg/dL [facility] Comment:Desirable HDL: great er than 40 mg/dL Note: This HDL assay may give artificially low results in patients with liver disease. Blood Venous blood specimen / Unknown 06/07/2024 12:35 PM EDT 06/07/2024 1:15 PM EDT Arianna Wellington [facility] BLOOD ORDERABLES Final Resu lt [facility] [address] [place] [address] [phone] * ALBUMIN, RANDOM URINE W/CREATININE (12/21/2021 10:59 AM EST) Microalbumin Urine 1.4 See Note: mg/dL [facility] Comment: Reference Range: Reference Range Not established Microalb/Creat Ratio 11 <30 mcg/mg creat [facility] Comment: The ADA defines abnormalities in albumin excretion as follows: Albuminuria Category Result (mcg/mg creatinine) Normal to Mildly increased <30 Moderately increased 30-299 Severely increased > OR = 300 The ADA recommends that at least two of three specimens collected within a 3-6 month period be abnormal before considering a patient to be within a diagnostic category. Creatinine, Urine 132 20 - 275 mg/dL [facility] 12/21/2021 10:5 9 AM EST us Kevin Hester MD LAB URINE ORDERABLES Final R esult [facility] [address] from Last 3 Months or Most Recently Relevant to Health Maintenance Additional Health Concerns Active Problems Noted Date [...] 10/07/2025 Patient has chronic kidney disease 10/07/2025 Insurance [employer] MEDICARE REPLACEMENT Care Teams Accounting File Clerk Relationship Specialty Start Date End Date Britt Perkins MD [address] [place] [address] PCP - General Family Medicine 05/07/25 Francoise Dial PharmD [address] [place] [address] Pharmacist Internal Medicine 05/21/24
--- OUTSIDE RECORDS SUMMARY | 2025-10-07 16:52 | XMS_ITS | Clinical Summary ---
Author Organization [facility] ity Address [address] [place] [address] Care Team Providers Care Cupola Operator Name Role Phone Unavailable Primary Care [...] 2000 Zoster Vaccines (1 of 2) 2000 Depression Screening 10/16/2024 RSV Immunization Adult Patie nts (1 - 1-dose 75+ series) 2025 COVID-19 Vaccine ( - 2024-2 6 season) 2025 Influenza Vaccine (#1) 2025 HIB Vaccines Aged Out No longer [...]
--- OUTSIDE RECORDS SUMMARY | 2025-10-07 16:52 | XMS_ITS | Encounter Summary ---
Author Organization [employer] Address [address] [facility] [address] [place] [address] Care Team Providers Care Puncher Name Role Phone Arianna Wellington Primary Care Provider [phone] Francoise Dial PharmD Unavailable [phone] Name, Jules GABRIEL Primary Care Provider [phone] Britt Perkins MD Primary Care Provider [phone] Encounter Details Date Type Department Care Team (Late st Contact Info) Description 08/25/2023 Orders Only [facility] [address] [place] [address] Arianna Wellington FNP [address] [place] [address] Social History Tobacco Use Types Packs/Day Years [...] Description 10/13/2025 11:30 AM EST Medication Management [facility] [address] [place] [address] Francoise Dial, PharmD [address] [place] [address] 10/15/2025 10:00 AM EST Office Visit [facility] [address] [place] [address] Britt Perkins MD [address] [place] [address] 11/14/2025 11:00 AM EST Office Visit [facility] [address] [place] [address] Allyson Epps, MEDHAT [address] [place] [address] documented as of this encounter Goals Goal [...] documented as of this encounter Care Teams Puncher Relationship Specialty Start Date End Date Arianna Wellington FNP [address] [place] [address] PCP - General Family Medicine 03/20/23 06/17/24 Jules Landis MD [address] [place] [address] PCP - General Internal Medicine 06/18/24 05/06/25 Britt Perkins MD [address] [place] [address] PCP - General Family Medicine 05/07/25 Francoise Dial PharmD [address] [place] [address] Pharmacist Internal Medicine 05/21/24 documented as of this encounter
--- OUTSIDE RECORDS SUMMARY | 2025-10-07 16:53 | XMS_ITS | Encounter Summary ---
Author Organization [employer] Address [address] [facility] [address] [address] Care Team Providers Care Nursing Executive Name Role Phone Francoise Dial PharmD Unavailable [phone] NameJules MD Primary Care Provider [phone] Britt Perkins MD Primary Care Provider [phone] Reason for Visit * Reason Comments Med Refill Encounter Details Date Type Department Care Team ([facility] st Contact Info) Description 04/10/2025 Refill [facility] [address] [place], [place] [phone] Puia, Francoise, PharmD [address] [place] [address] Social History Tobacco Use Types Packs/Day Years Used Date Smoking Tobacco: Some Days Cigarettes Smokeless Tobacco: Never Comments:Current smokin- 2 CIGARETTES PER DAY Alcohol Use Standard Drinks/Week [...] Description 10/13/2025 11:30 AM EST Medication Management [facility] [address] [place] [address] Francoise Dial, PharmD [address] [place] [address] 10/15/2025 10:00 AM EST Office Visit [facility] [address] [place] [address] Britt Perkins MD [address] [place] [address] 11/14/2025 11:00 AM EST Office Visit [facility] [address] [place] [address] Allyson Epps OD [address] [place] [address] documented as of this encounter Goals Goal Patient Goal Type Associated Problems Recent Progress Patient-Stated? Author Blood Pressure < 140/90 Blood Pressure 135/74(2024 2:35 PM EST) No Colt Garza Hemoglobin A1c < 7.5 Result Component 7.7( 5 12:37 PM EDT) No Colt Garza Note: Modified based on patient age, treatment options available, risk of hypoBG given she lives alone, etc. documented as of this encounter Visit Diagnoses Not on filedocumented in this encounter Additional Health Concerns Assessment Noted Time PHQ-9 Depression Total Score: 15 024 11:35 AM EDT documented as of this encounter Care Teams Nursing Executive Relationship Specialty Start Date End Date Name, MD Jules [address] [place] [address] PCP - General Internal Medicine 06/18/24 05/06/25 Britt Perkins MD [address] [place] [address] PCP - General Family Medicine 05/07/25 Francoise Dial PharmD [address] [place] [address] Pharmacist Internal Medicine 05/21/24 documented as of this encounter
--- OUTSIDE RECORDS SUMMARY | 2025-10-07 16:53 | XMS_ITS | Encounter Summary ---
Author Organization [employer] Address [address] [facility] [address] [address] Care Team Providers Care Auto Former Machine Operator Name Role Phone Arianna Wellington Primary Care Provider [phone] Francoise Dial PharmD Unavailable [phone] Name, Jules GABRIEL Primary Care Provider [phone] Britt Perkins MD Primary Care Provider [phone] Encounter Details Date Type Department Care Team (Late st Contact Info) Description 09/25/2023 Orders Only [facility] [address] [place] [address] Arianna Wellington FNP [address] [place] [address] Social History Tobacco Use Types Packs/Day Years [...] Description 10/13/2025 11:30 AM EST Medication Management [facility] [address] [place] [address] Francoise Dial, PharmD [address] [place] [address] 10/15/2025 10:00 AM EST Office Visit [facility] [address] [place] [address] Britt Perkins MD [address] [place] [address] 11/14/2025 11:00 AM EST Office Visit [facility] [address] [place] [address] Allyson Epps, MEDHAT [address] [place] [address] documented as of this encounter Goals Goal [...] documented as of this encounter Care Teams Auto Former Machine Operator Relationship Specialty Start Date End Date Arianna Wellington FNP [address] [place] [address] PCP - General Family Medicine 03/20/23 06/17/24 Jules Landis MD [address] [place] [address] PCP - General Internal Medicine 06/18/24 05/06/25 Britt Perkins MD [address] [place] [address] PCP - General Family Medicine 05/07/25 Francoise Dial PharmD [address] [place] [address] Pharmacist Internal Medicine 05/21/24 documented as of this encounter
--- OUTSIDE RECORDS SUMMARY | 2025-10-07 16:53 | XMS_ITS | Encounter Summary ---
Author Organization [employer] Address [address] [facility] [address] [address] Care Team Providers Care Gas Main Fitter Helper Name Role Phone Arianna Wellington Primary Care Provider [phone] Francoise Dial PharmD Unavailable [phone] Name, Jules GABRIEL Primary Care Provider [phone] Britt Perkins MD Primary Care Provider [phone] Encounter Details Date Type Department Care Team (Late st Contact Info) Description 01/10/2024 Orders Only [facility] [address] [place], [place] [phone] Arianna Wellington FNP [address] [place] [address] Social History Tobacco Use Types Packs/Day Years [...] Description 10/13/2025 11:30 AM EST Medication Management [facility] [address] [place] [address] Francoise Dial, PharmD [address] [place] [address] 10/15/2025 10:00 AM EST Office Visit [facility] [address] [place] [address] Britt Perkins MD [address] [place] [address] 11/14/2025 11:00 AM EST Office Visit [facility] [address] [place] [address] Allyson Epps, OD [address] [place] [address] documented as of this encounter Goals Goal Patient Goal Type Associated Problems Recent Progress Patient-Stated? Author Blood Pressure < 140/90 Blood Pressure 135/74(2024 2:35 PM EST) No Colt Garza Hemoglobin A1c < 7.5 Result Component 7.7( 12:37 PM EDT) No Sampognaro, Colt Note: Modified based on patient age, treatment options available, risk of hypoBG given she lives alone, etc. documented as of this encounter Visit Diagnoses Not on filedocumented in this encounter Additional Health Concerns Assessment Noted Time PHQ-9 Depression Total Score: 24 023 9:07 AM EDT documented as of this encounter Care Teams Gas Main Fitter Helper Relationship Specialty Start Date End Date Arianna Wellington FNP [address] [place] [address] PCP - General Family Medicine 03/20/23 06/17/24 Jules Landis MD [address] [place] [address] PCP - General Internal Medicine 06/18/24 05/06/25 Britt Perkins MD [address] [place], [place] [phone] PCP - General Family Medicine 05/07/25 Francoise Dial PharmD [address] [place], [place] [phone] Pharmacist Internal Medicine 05/21/24 documented as of this encounter
--- OUTSIDE RECORDS SUMMARY | 2025-10-07 16:53 | XMS_ITS | Encounter Summary ---
Author Organization [employer] Address [address] [facility] [address] [place] [address] Care Team Providers Care Onsite Health Coach Name Role Phone Arianna Wellington Primary Care Provider [phone] Francoise Dial PharmD Unavailable [phone] Name, Jules GABRIEL Primary Care Provider [phone] Britt Perkins MD Primary Care Provider Reason for Visit * Reason Onset Date Comments Other 03/20/2023 Encounter Details Date Type Department Care Team (Late st Contact Info) Description 03/20/2023 Telephone [facility] [address] [place], [place] [phone] [facility] [address] [place] [address] Other Social History Tobacco Use Types Packs/Day [...] Description 10/13/2025 11:30 AM EST Medication Management [facility] [address] [place] [address] Francoise Dial PharmD [address] [place] [address] 10/15/2025 10:00 AM EST Office Visit [facility] [address] [place] [address] Britt Perkins MD [address] [place] [address] 11/14/2025 11:00 AM EST Office Visit [facility] OPT[facility] [address] [place] [address] MichAllyson eldridge, OD [address] [place] [address] documented as of this encounter Visit Diagnoses Diagnosis Type 2 diabetes mellitus with other specified complication, unspecified whether penitentiary insulin use (HCC) documented in this encounter Care Teams Onsite Health Coach Relationship Specialty Start Date End Date Arianna Wellington FNP [address] [place] [address] PCP - General Family Medicine 03/20/23 06/17/24 Jules Landis MD [address] [place] [address] PCP - General Internal Medicine 06/18/24 05/06/25 Britt Perkins MD [address] [place] [address] PCP - General Family Medicine 05/07/25 Francoise Dial PharmD [address] [place] [address] Pharmacist Internal Medicine 05/21/24 documented as of this encounter
--- OUTSIDE RECORDS SUMMARY | 2025-10-07 16:53 | XMS_ITS | Encounter Summary ---
Author Organization [employer] Address [address] [facility] [address] [address] Care Team Providers Care Piece Goods Packer Name Role Phone Arianna Wellington Primary Care Provider [phone] Francoise Dial PharmD Unavailable [phone] Name, Jules GABRIEL Primary Care Provider [phone] Britt Perkins MD Primary Care Provider [phone] Reason for Visit * Reason Comments Med Refill Encounter Details Date Type Department Care Team (Late st Contact Info) Description 10/14/2023 Refill [facility] [address] [place] [address] Arianna Wellington FNP [address] [place] [address] Current mild episode of major depressive disorder, [...] Description 10/13/2025 11:30 AM EST Medication Management [facility] [address] [place] [address] Francoise Dial, PharmD [address] [place] [address] 10/15/2025 10:00 AM EST Office Visit [facility] [address] [place] [address] Britt Perkins MD [address] [place] [address] 11/14/2025 11:00 AM EST Office Visit [facility] [address] [place] [address] Allyson Epps, OD [address] [place] [address] documented as of this encounter Goals Goal [...] documented as of this encounter Care Teams Piece Goods Packer Relationship Specialty Start Date End Date Arianna Wellington FNP [address] [place] [address] PCP - General Family Medicine 03/20/23 06/17/24 Jules Landis MD [address] [place] [address] PCP - General Internal Medicine 06/18/24 05/06/25 Britt Perkins MD [address] [place] [address] PCP - General Family Medicine 05/07/25 Francoise Dial PharmD [address] [place] [address] Pharmacist Internal Medicine 05/21/24 documented as of this encounter
--- OUTSIDE RECORDS SUMMARY | 2025-10-07 16:53 | XMS_ITS | Encounter Summary ---
Author Organization [employer] Address [address] [facility] [address] [place] [address] Care Team Providers Care Manager Shell Name Role Phone Francoise Dial PharmD Unavailable [phone] Britt Perkins MD Primary Care Provider [phone] Encounter Details Date Type Department Care Team (Latest Contact Info) Description 10/07/2025 Travel Social History Tobacco Use Types Packs/Day Years [...] Description 10/13/2025 11:30 AM EST Medication Management [facility] [address] [place] [address] Francoise Dial, PharmD [address] [place] [address] 10/15/2025 10:00 AM EST Office Visit [facility] [address] [place] [address] Britt Perkins MD [address] [place] [address] 11/14/2025 11:00 AM EST Office Visit [facility] OPTOMETRY [address] [place] [address] Mich, Allyson, OD [address] [place] [address] documented as of this encounter Goals Goal [...] Care Plan Weekly blood pressure task No Mark Anthony Pied[place], [place] Weekly blood pressure task Care Plan Weekly blood pressure task No Mark Anthony [place], [place] Weekly blood pressure task Care Plan Weekly blood pressure task No Mark Anthony [place], [place] Patient has diabetic eye disease Care Plan Patient has diabetic eye disease No Mark Anthony [place], [place], [place] Patient has diabetic eye disease Care Plan Patient has diabetic eye disease No Mark Anthony [place], [place], [place] Patient has diabetic eye disease Care Plan Patient has diabetic eye disease No Mark Anthony [place], [place], [place] Patient has chronic kidney disease Care Plan Patient has chronic kidney disease No Mark Anthony Al[place], [place] Patient has chronic kidney disease Care Plan Patient has chronic kidney disease No Mark Anthony [place], [place] Patient has chronic kidney disease Care Plan Patient has chronic kidney disease No Mark Anthony [place], [place] documented as of this encounter Visit Diagnoses Not on filedocumented in this encounter Additional Health Concerns Active [...] Noted Time PHQ-9 Depression Total Score: 2 09/23/20 25 9:40 AM EDT documented as of this encounter Care Teams Manager Shell Relationship Specialty Start Date End Date Britt Perkins MD [address] [place] [address] PCP - General Family Medicine 05/07/25 Francoise Dial PharmD [address] [place] [address] Pharmacist Internal Medicine 05/21/24 documented as of this encounter
== END 2025-10-07 15:55 | disposition home or self-care (01) ==
LOC: HO.HHCX 15:54
PROVIDERS: PCP General Practice; Visit Provider Internal Medicine
DX: M25.521 Pain in right elbow (principal); M25.531 Pain in right wrist; M25.511 Pain in right shoulder; M25.522 Pain in left elbow; W19.XXXA Unspecified fall, initial encounter
CPT/HCPCS: 73030; 73080; 73110

== ENCOUNTER → 2025-10-07 15:59 | Outpatient (BNV) | payer MEDICARE, SELFPAY | PROVIDERS: PCP General Practice; Visit Provider Radiology Diagnostic Radiology | DX: M19.011 Primary osteoarthritis, right shoulder (principal); M75.31 Calcific tendinitis of right shoulder; M25.522 Pain in left elbow; M18.11 Unilateral primary osteoarthritis of first carpometacarpal joint, right hand; M25.521 Pain in right elbow; Z04.3 Encounter for examination and observation following other accident | CPT/HCPCS: 73030; 73080; 73110 ==